=== PATIENT | female | born 1930 | race Caucasian/White ===

== ENCOUNTER → 2016-11-06 | Outpatient (CLI) | payer MEDICARE, BC ==
[~2016-11-06] MED LIST: DIGO125T PO; LEVO50TA71 PO; LOVA40TA64 PO; METO25TA7 PO; NIFE30TA60 PO
--- NOTE | 2016-11-06 19:41 | RADRPT ---
PROCEDURE: CT Chest, Abdomen and Pelvis with contrast. CLINICAL INDICATION: Right lung effusion and weight loss with dyspnea. TECHNIQUE: CT scan of the chest, abdomen, and pelvis with contrast was performed on a multi-detect or high-resolution CT scanner. The patient was scanned without intravenous contrast. Coronal and s agittal reformatted images were obtained from the axial source images. Images were reviewed on a hig h-resolution PACS workstation. The total exam CTDI equals 4.32 mGy and the total exam DLP equals 315 .43 mGy-cm. One of the following 3 dose reduction techniques were used during this CT examination: automated exp osure control; adjustment of the mA and /or kV according to patient size; or use of iterative recons truciton technique COMPARISON: Chest x-ray 03/26/20602015 and CT chest abdomen pelvis on 03/26/2016 FINDINGS: CT chest: The lungs are remarkable for hyperinflation compatible with emphysematous changes. Moderate right g reater than left pleural effusions are present with bibasilar atelectasis or infiltrates. These are increased when compared with prior study. No other areas of infiltrate, nodules or masses are prese nt. The tracheobronchial tree demonstrates cartilaginous ring calcification. The mediastinum is demonstrates vascular calcifications of the thoracic aorta and the coronary arter ies. No evidence for pathologic lymphadenopathy is present. Mild cardiomegaly is present with 9 mm pericardial effusion. The vascular structures of the mediastinum are normal in course and caliber. The axillary regions, subpectoral regions, and supraclavicular regions are all unremarkable. The surrounding chest wall is unremarkable. CT abdomen: The liver is normal in size and density without focal mass or intrahepatic biliary dilatation. The spleen is normal in size and homogeneous in density. The stomach is partially collapsed, but is jonah ssly unremarkable. The pancreas as visualized is normal. The gallbladder and biliary tree are unre markable and there is no evidence for biliary dilatation. The adrenal glands are symmetric and norm al. The kidneys are are normal without evidence for hydroureteronephrosis or nephroureterolithiasis . A low-lying right kidney is incidentally noted. The visualized bowel is nonobstructive. No evidence for diverticulitis or appendicitis is present. The aorta is of normal caliber. Aortic vascular calcifications are present. There is no retroperit ahumada lymphadenopathy. The dorian hepatis region is clear. CT pelvis: The small bowel loops situated within the pelvis are unremarkable. The pelvic organs are normal. T he pelvic sidewalls and inguinal regions are clear. The sigmoid colon and rectum are all unremarkab le. No mass, lymphadenopathy, or free fluid is seen. No acute inflammation is seen. The surrounding osseous structures are remarkable for degenerative changes the bilateral sacroiliac joints and the imaged spine. A grade 1 spondylolisthesis of L4 on L5 is present without evidence fo r spondylolysis. Transitional anatomy is present. No osteolytic or osteoblastic lesion is detected. IMPRESSION: 1. Interval increased bilateral right greater than left moderate pleural effusions and bibasilar in filtrates or atelectasis. 2. Mild cardiomegaly and pericardial effusion measuring 9 mm in thickness unchanged from prior CT. 3. Atherosclerotic vascular disease 4. Spondylosis of the imaged spine with grade 1 spondylolisthesis of L4 and L5 and no evidence for spondylolysis. RPTAT: HD .Galina Mckeon MD, MD Date Time Electronically viewed and signed by .Galina Mckeon MD, on 11/06/2016 19:41 .C/
== END | disposition home or self-care (01) ==
LOC: C/S 13:02
PROVIDERS: ATTEND Internal Medicine
DX: J90 Pleural effusion, not elsewhere classified (principal); R63.4 Abnormal weight loss; R13.10 Dysphagia, unspecified; I70.90 Unspecified atherosclerosis
CPT/HCPCS: 71250; 74176

== ENCOUNTER 2016-11-12 13:19 | Inpatient (IN) | payer MEDICARE, BC ==
[~2016-11-12] VITALS: Ht 162.6 cm; Wt 45.0 kg
[2016-11-12 16:59] LABS: BASOPHILS % 0.2 % (0.0-2.0); EOSINOPHILS # 0.1 10^3/ul (0.0-0.5); EOSINOPHILS % 0.9 % (0.0-7.0); HEMATOCRIT 47.3 % (37.0-47.0); HEMOGLOBIN 15.6 g/dl (12.0-16.0); LYMPHOCYTES # 0.7 10^3/ul (0.8-2.9); LYMPHOCYTES % 9.1 % (15.0-51.0); MEAN CORPUSCULAR HEMOGLOBIN 31.1 pg (29.0-33.0); MEAN CORPUSCULAR HGB CONC 32.9 g/dl (32.0-37.0); MEAN CORPUSCULAR VOLUME 94.5 fl (82.0-101.0); MEAN PLATELET VOLUME 9.4 fl (7.4-10.4); MONOCYTE # 0.7 10^3/ul (0.3-0.9); MONOCYTES % 8.4 % (0.0-11.0); NEUTROPHIL # 6.3 10^3/ul (1.6-7.5); NEUTROPHILS % 81.4 % (39.0-77.0); PLATELET COUNT 212 10^3/UL (140-440); RED BLOOD COUNT 5.01 10^6/ul (4.20-5.40); UNCORRECTED WBC 7.8 10^3/ul (4.8-10.8); WHITE BLOOD COUNT 7.8 10^3/ul (4.8-10.8)
[2016-11-12] MEDS ORDERED: ENALAPRILAT 1.25 MG INJ IV ONE (17:00)
[2016-11-12] MEDS ORDERED: FUROSEMIDE 40 MG INJ IV ONE (17:00)
[2016-11-12] MEDS ORDERED: FAMO20TA18 PO (17:05)
[2016-11-12] MEDS ORDERED: WARF3TAB PO (17:05)
[2016-11-12 17:10] LABS: CONDITION 1
[2016-11-12 17:23] LABS: ALBUMIN 4.1 g/dl (3.3-4.9)
[2016-11-12 17:24] LABS: POTASSIUM 5.1 mmol/L (3.5-5.1)
[2016-11-12 17:26] LABS: BILIRUBIN,INDIRECT 0.6 mg/dl (0-1.1); BILIRUBIN,TOTAL 0.6 mg/dl (0.2-1.3); CREATININE 0.75 mg/dl (0.44-1.00)
[2016-11-12 17:27] LABS: CALCIUM 9.2 mg/dl (8.4-10.2); TOTAL PROTEIN 8.2 g/dl (6.1-8.1)
--- NOTE | 2016-11-12 17:28 | RADRPT ---
PROCEDURE: XR Chest. CLINICAL INDICATION: Abdominal pain TECHNIQUE: AP view of the chest was obtained. COMPARISON: 03/30/2016 FINDINGS: There are atherosclerotic calcifications of the thoracic aorta. Cardiac silhouette is mildly enlar ged. There are small bilateral pleural effusions with adjacent basilar atelectasis. Noted are clip s in the axilla/right chest wall. IMPRESSION: Small bilateral pleural effusions with bibasilar atelectasis. Mild cardiomegaly. RPTAT: VV .Pratik Kam MD, MD Date Time Electronically viewed and signed by .Pratik Kam MD, on 11/12/2016 17:27 .O/
[2016-11-12 17:30] LABS: INR 5.11; PROTIME 48.2 Sec (12.2-14.2); PT RATIO 3.8
[2016-11-12 17:37] LABS: TROPONIN-I 0.069 ng/ml (0.00-0.12)
--- NOTE | 2016-11-12 18:23 | ERA ---
ER Documentation Chief Complaint Date/Time DATE: 11/12/16 TIME: 18:22 Chief Complaint SOB SINCE SATURDAY. FLUID ACCULMULATION IN LUNGS, SENT BY PMD FOR ADMIT HPI 86-year-old woman complains of increasing shortness of breath despite using furosemide daily, which was recently prescribed by her primary care physician. She has a history of pleural effusions and breast cancer and a CT scan of the chest performed a few days ago revealed bilateral pleural effusions. Patient states with furosemide therapy of her lower extremity swelling improved although shortness of breath continues. She denies fevers or chills, no chest pain, no vomiting or diarrhea. Patient was referred here by her PMD for admission and inpatient management. ROS All systems reviewed and are negative except as per history of present illness. Medications Home Meds Reported Medications Famotidine* (Famotidine*) 20 Mg Tablet, 20 MG PO BID, #60 TAB 11/12/16 Warfarin Sodium* (Coumadin*) 3 Mg Tablet, 3 MG PO DAILY, TAB 11/12/16 Lovastatin* (Altoprev*) 40 Mg Tab.sr.24h, 40 MG PO HS, TAB 03/26/16 Metoprolol Succinate* (Toprol XL*) 25 Mg Tab.sr.24h, 25 MG PO DAILY, #30 TAB 03/26/16 Levothyroxine Sodium* (Levoxyl*) 50 Mcg Tablet, 50 MCG PO BEFORE BREAKFAST, #30 TAB 03/26/16 Digoxin* (Digoxin*) 0.125 Mg Tab, 0.125 MG PO DAILY, #30 TAB 03/26/16 Discontinued Reported Medications Nifedipine* (Nifedipine ER*) 30 Mg Tablet.sa, 30 MG PO DAILY, TAB.SA 03/26/16 Allergies Allergies: Coded Allergies: No Known Allergy (Unverified , 11/12/16) PMhx/Soc 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, atrial fibrillation, recurrent hyponatremia, hypothyroidism, breast cancer status post mastectomy, hypertension History of Surgery: Yes (Mastectomy (L) 1999; (R) 2014) Anesthesia Reaction: No Hx Neurological Disorder: No Hx Respiratory Disorders: No Hx Cardiac Disorders: Yes (HTN, A-fib.) Hx Psychiatric Problems: No Hx Alcohol Use: No Hx Substance Use: No Hx Tobacco Use: No Smoking Status: Never smoker FmHx Family History: No diabetes Physical Exam Vitals Vital Signs Date Time Temp Pulse Resp B/P Pulse Ox O2 Delivery O2 Flow Rate FiO2 11/12/16 16:44 Nasal Cannula 3 11/12/16 13:29 98.4 76 24 183/81 96 Physical Exam GENERAL: Well-developed, well-nourished, appears dehydrated, afebrile HEENT: Moist mucous membranes, pink conjunctiva, no cervical spine tenderness or step-off deformities, no goiter, no jaundice or icterus, extraocular movements intact without pain. No submandibular induration, and no pharyngeal erythema NEURO: Alert and oriented 3, cranial nerves II through XII intact bilaterally, pupils equal round reactive to light, no focal deficits or facial asymmetry, sensation intact distally Strength 5/5 in upper and lower extremities bilaterally CARDIAC: Irregular, no murmurs rubs or gallops LUNGS: Poor entry bilaterally with bibasilar crackles, no wheezing or stridor ABDOMEN: Soft nontender, no guarding, no rigidity, no rebound, no psoas sign no obturator sign. Normoactive bowel sounds SKIN: Warm and dry to touch, no abrasions, contusions, or hematomas, no lacerations, no ecchymosis, no target lesions, and without ulcers EXTREMITIES: No clubbing cyanosis or edema, calves are bilaterally symmetrical, no Homans sign, no popliteal cord sign. Distal pulses equal and bilateral PSYCH: Normal affect without agitation or irritability Result Diagram: 11/12/16 1640 11/12/16 1640 Results 24 hrs Laboratory Tests Test 11/12/16 16:40 Alanine Aminotransferase (ALT/SGPT) 28IU/L Albumin 4.1g/dl Albumin/Globulin Ratio 1.00 Alkaline Phosphatase 85IU/L Anion Gap 13 Aspartate Amino Transf (AST/SGOT) 34IU/L Basophils # 0.010^3/ul Basophils % 0.2% Blood Urea Nitrogen 16mg/dl Calcium Level 9.2mg/dl Carbon Dioxide Level 34mmol/L Chloride Level 96mmol/L Creatinine 0.75mg/dl Direct Bilirubin 0.00mg/dl Eosinophils # 0.110^3/ul Eosinophils % 0.9% Globulin 4.10g/dl Glucose Level 84mg/dl Hematocrit 47.3% Hemoglobin 15.6g/dl INR International Normalized Ratio 5.11 Indirect Bilirubin 0.6mg/dl Lipase 72U/L Lymphocytes # 0.710^3/ul Lymphocytes % 9.1% Mean Corpuscular Hemoglobin 31.1pg Mean Corpuscular Hemoglobin Concent 32.9g/dl Mean Corpuscular Volume 94.5fl Mean Platelet Volume 9.4fl Monocytes # 0.710^3/ul Monocytes % 8.4% Neutrophils # 6.310^3/ul Neutrophils % 81.4% Nucleated Red Blood Cells # 0.010^3/ul Nucleated Red Blood Cells % 0.0/100WBC Platelet Count 33404^3/UL Potassium Level 5.1mmol/L Prothrombin Time 48.2Sec Prothrombin Time Ratio 3.8 Red Blood Count 5.0110^6/ul Red Cell Distribution Width 14.0% Sodium Level 138mmol/L Total Bilirubin 0.6mg/dl Total Protein 8.2g/dl Troponin I 0.069ng/ml White Blood Count 7.810^3/ul Current Medications Medications (Trade) Dose Ordered Sig/Murphy Route PRN Reason Start Time Stop Time Status Last Admin Dose Admin Enalaprilat (Vasotec Iv) 1.25 mg ONCE ONCE IV 11/12/16 17:00 11/12/16 17:01 DC 11/12/16 17:05 Furosemide (Lasix) 60 mg ONCE ONCE IV 11/12/16 17:00 11/12/16 17:01 DC 11/12/16 17:05 Procedures/MDM IV line was established patient was placed on front desk monitor rhythm strip revealed a narrow complex rhythm at about 80 bpm. Patient was afebrile. EKG performed, read by me revealed an atrial fibrillation rate controlled at 76 bpm, right axis deviation, narrow QRS complex with diffuse T-wave inversions, no concerning ST elevations or depressions noted. One view chest x-ray performed, read by me there is atelectatic changes bilaterally and bilateral small pleural effusions, no acute infiltrate, no pneumothorax. Given the patient's presentation and symptomatology I treated her here with furosemide 60 mg IV 1. She was hypertensive and treated here with enalapril 1.25 mg IV. CBC and electrolytes are normal, liver function tests are normal, troponin was negative. I spoke to Dr. Bustos regarding the patient's presentation and symptomatology she will be admitted to telemetry setting for continued medical management and further diuresis. Patient failed outpatient therapy with oral furosemide and has continued symptoms of shortness of breath, further workup and imaging if indicated will be deferred to PMD. Departure Diagnosis: Primary Impression: Shortness of breath Additional Impressions: Pleural effusion Hypertension Qualified Code: I10 - Essential hypertension Breast cancer Qualified Code: C50.912 - Malignant neoplasm of left female breast, unspecified site of breast Condition: DAVID Samuel MD Nov 12, 2016 18:23
[2016-11-12] MEDS ORDERED: ACETAMINOPHEN 325 MG TAB PO PRN (20:30)
[2016-11-12] MEDS ORDERED: ONDANSETRON 4 MG INJ IV PRN (20:30)
[2016-11-12] MEDS ORDERED: NACL 0.9% 3 ML SYG IV SCH (20:30)
--- NOTE | 2016-11-12 20:47 | PREOPHP ---
DATE OF ADMISSION: 11/12/2016 REASON FOR ADMISSION: Increasing shortness of breath. HISTORY OF PRESENT ILLNESS: This 86-year-old female says that she has been having increasing shortn ess of breath. The patient has also had leg swelling. The patient was started on Lasix by her [facility] doctor on approximately 10/30/2016. She said that swelling in her legs, decreased; however , her shortness of breath, did not improve. Then, about the same period of time on approximately , she developed some mid waist abdominal pain with nausea and vomiting. She said that after several days she felt better; however, she was not eating. She did see her primary care physician, Dr. Gayle, on 11/02/2016 and gave him some of this history. Then, the patient developed increasin g shortness of breath. She did have a CAT scan of the chest on 11/06/2016, which showed increased b ilateral pleural effusions, right greater than left, and bibasilar infiltrates and/or atelectasis. It also showed mild cardiomegaly and pericardial effusion. The patient has a past medical history o f atrial fibrillation and breast cancer. It is not clear to me whether this breast cancer has been metastatic, although she has been seeing Dr. Burrell for the breast cancer. CURRENT MEDICATIONS: Include the followin. Digoxin 0.125 mg a day. 2. Metoprolol succinate extended release 25 mg a day. 3. Synthroid 50 mcg a day. 4. Lovastatin 40 mg a day. 5. Famotidine 20 mg twice a day. 6. Coumadin 3 mg a day. 7. She was apparently recently taken off of Adalat CC 30 mg a day because of her leg edema. 8. She was taking furosemide, which she did stop last week. ALLERGIES: SHE IS ALLERGIC TO CODEINE. 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 PAST SURGICAL HISTORY: Breast cancer surgery, both left and right; bilateral cataract extraction, b uche cell, squamous cell, and melanoma skin surgeries. PHYSICAL EXAMINATION: GENERAL: At this time reveals a cachectic female who is awake and alert and seems oriented to time and place and person. VITAL SIGNS: Blood pressure 150/93, pulse of 77, irregular, respirations 20, O2 saturation 100% on room air. HEENT: Head normocephalic. EYES: Extraocular muscles intact. NOSE AND MOUTH: Normal. NECK: Supple. No neck vein distention. LUNGS: Diminished breath sounds bilaterally. No rales or wheezes. HEART: Irregularly irregular rhythm. No murmurs, gallops, or rubs. ABDOMEN: Soft, nontender. No masses or megaly. EXTREMITIES: Trace to +1 pretibial edema, which is nonpitting. LABORATORY DATA: Hemoglobin is 15.6, hematocrit 47.3. White blood count 7800. Her INR is elevated at 5.1. Her chemistry: Sodium 138, potassium 5.1, chloride 96, CO2 of 34, BUN 16, creatinine 0.75 . IMPRESSION: 1. Dyspnea. This patient presents now with increasing dyspnea. She does have bilateral pleural ef fusions on a recent CAT scan. She also had some lower extremity edema, which has improved on Lasix. She also had a pericardial effusion on the CAT scan. The etiology of her pleural effusions is eit her congestive heart failure and/or malignancy. She does have a history of breast cancer. 2. Breast cancer, both left and right, having gone bilateral mastectomy. 3. Atrial fibrillation, controlled rate. 4. Weight loss. 5. Debility. 6. Prolonged protime due to Coumadin. 7. Hypothyroidism. 8. Hyperlipidemia. 9. Hypertension. PLAN: 1. Admit to telemetry. 2. The patient was given Lasix in the emergency room. 3. Resume some routine medications. 4. Echocardiogram to assess pericardial effusion. 5. Check labs in the morning. 6. Further evaluation and workup by Dr. Gayle when he returns tomorrow. Dictated By: TREVIN WARD MD, ND/REI Conf#: [id number] DID#: [id number]
[2016-11-12] MEDS ORDERED: NON-FORMULARY/PATIENT OWN MED (Lovastatin* (Altoprev*) 40 MG) PO SCH (21:00)
[2016-11-12] MEDS ORDERED: FAMOTIDINE 20 MG TAB PO SCH (21:00)
[2016-11-12 21:14] LABS: ADD UMIC YES; URINE BILIRUBIN (Dip) NEGATIVE (NEGATIVE); URINE BLOOD (Dip) 1+ (NEGATIVE); URINE COLOR LT. YELLOW (YELLOW); URINE GLUCOSE (Dip) NEGATIVE (NEGATIVE); URINE KETONES (Dip) NEGATIVE (NEGATIVE); URINE LEUKOCYTE ESTERASE (Dip) NEGATIVE (NEGATIVE); URINE NITRITE (Dip) NEGATIVE (NEGATIVE); URINE TOTAL PROTEIN (Dip) NEGATIVE (NEGATIVE); URINE UROBILINOGEN (Dip) 0.2 E.U./dL (0.1-1.0)
[2016-11-12 21:46] LABS: SQUAMOUS EPITHELIAL CELL,UR RARE
[2016-11-12] MEDS: ATORVASTATIN 10 MG TAB PO SCH (21:57)
[2016-11-12] MEDS: FAMOTIDINE 20 MG TAB PO SCH (21:57)
[2016-11-13] VITALS (12 sets, daily range): BP systolic 92–141; BP diastolic 54–84; PULSE 51–88; RESP 18–20; Ht 162.6 cm; Wt 45.0 kg
[2016-11-13] MEDS: LEVOTHYROXINE 50 MCG TAB PO SCH (06:33)
--- NOTE | 2016-11-13 08:25 | PN ---
Date/Time of Note Date/Time of Note DATE: 11/13/16 TIME: 08:23 Assessment/Plan VTE Prophylaxis VTE Prophylaxis Intervention: other Lines/Catheters Urinary Cath still in place: No Assessment/Plan Assessment/Plan 1. Recurrent edema in part sec to cardiac dysfx (diastolic ?), await cards follow up, Lasix given today 2. Effusion prob sec to 1, but when quite dry last week effusions were still present on CT scan, need pleural tap, pul to see. 3. Bilat breast Ca, will ask oncology to see as well. Subjective 24 Hr Interval Summary Respiratory: shortness of breath (is less) Cardiovascular: No chest pain Gastrointestinal: no complaints Genitourinary: other (mod incontinence) Musculoskeletal: No back pain Exam/Review of Systems Vital Signs Vitals Vital Signs Date Time Temp Pulse Resp B/P Pulse Ox O2 Delivery O2 Flow Rate FiO2 11/13/16 08:11 54 11/13/16 07:33 97.4 20 116/54 98 11/13/16 01:00 Nasal Cannula 2.0 Intake and Output 11/12/16 11/12/16 11/13/16 15:00 23:00 07:00 Intake Total 100 ml Balance 100 ml Exam Neck: No jvd Respiratory: diminished breath sounds Cardiovascular: irregular rhythm Gastrointestinal: soft Extremities: edema (1+ edema and sacral edema) Results Result Diagram: 11/12/16 1640 11/12/16 1640 Results 24 hrs Laboratory Tests Test 11/12/16 16:40 11/12/16 20:46 Alanine Aminotransferase (ALT/SGPT) 28 Albumin 4.1 Albumin/Globulin Ratio 1.00 Alkaline Phosphatase 85 Anion Gap 13 Aspartate Amino Transf (AST/SGOT) 34 Basophils # 0.0 Basophils % 0.2 Blood Urea Nitrogen 16 Calcium Level 9.2 Carbon Dioxide Level 34 H Chloride Level 96 L Creatinine 0.75 Digoxin Level 1.3 Direct Bilirubin 0.00 Eosinophils # 0.1 Eosinophils % 0.9 Globulin 4.10 H Glucose Level 84 Hematocrit 47.3 #H Hemoglobin 15.6 # INR International Normalized Ratio 5.11 Indirect Bilirubin 0.6 Lipase 72 Lymphocytes # 0.7 L Lymphocytes % 9.1 L Mean Corpuscular Hemoglobin 31.1 Mean Corpuscular Hemoglobin Concent 32.9 Mean Corpuscular Volume 94.5 Mean Platelet Volume 9.4 Monocytes # 0.7 Monocytes % 8.4 Neutrophils # 6.3 Neutrophils % 81.4 H Nucleated Red Blood Cells # 0.0 Nucleated Red Blood Cells % 0.0 Platelet Count 212 Potassium Level 5.1 Prothrombin Time 48.2 H Prothrombin Time Ratio 3.8 Red Blood Count 5.01 # Red Cell Distribution Width 14.0 Sodium Level 138 Thyroid Stimulating Hormone (TSH) 0.856 Total Bilirubin 0.6 Total Protein 8.2 H Troponin I 0.069 White Blood Count 7.8 # Urine Bilirubin NEGATIVE Urine Clarity CLEAR Urine Color LT. YELLOW Urine Glucose NEGATIVE Urine Hemoglobin 1+ H Urine Ketones NEGATIVE Urine Leukocyte Esterase NEGATIVE Urine Microscopic RBC 2-5 Urine Microscopic WBC NONE SEEN Urine Nitrite NEGATIVE Urine Specific [place] <=1.005 L Urine Squamous Epithelial Cells RARE Urine Total Protein NEGATIVE Urine Urobilinogen 0.2 E.U./dL Urine pH 6.0 Medications Medications Current Medications Digoxin (Digoxin) 0.125 mg DAILY@13 PO ; Start 11/13/16 at 13:00 Metoprolol Succinate (Toprol Xl) 25 mg DAILY PO ; Start 11/13/16 at 09:00 Clonidine (Catapres) 0.1 mg Q6 PRN PO ELEVATED BLOOD PRESSURE; Start 11/12/16 at 20:30 Ondansetron HCl (Zofran Inj) 4 mg Q6H PRN IV NAUSEA AND/OR VOMITING; Start at 20:30 Acetaminophen (Tylenol Tab) 650 mg Q6H PRN PO PAIN LEVEL 1-3 OR FEVER; Start at 20:30 Famotidine (Pepcid) 20 mg DAILY PO Last administered on 11/12/16 21:57; Admin Dose 20 MG; Start 11/12/16 at 21:00 Atorvastatin Calcium (Lipitor) 10 mg DAILY@21 PO Last administered on 21:57; Admin Dose 10 MG; Start 11/12/16 at 21:00 CATARINO RAMOS MD Nov 13, 2016 08:25
[2016-11-13] MEDS ORDERED: FUROSEMIDE 40 MG INJ IV ONE (08:30)
[2016-11-13] MEDS: FAMOTIDINE 20 MG TAB PO SCH (09:25)
[2016-11-13] MEDS: METOPROLOL (XL) 25 MG TAB PO SCH (09:27)
--- NOTE | 2016-11-13 12:13 | CONS ---
DATE OF ADMISSION: 11/12/2016 DATE OF CONSULTATION: REASON FOR CONSULTATION: Shortness of breath. Thank you, Dr. Gayle, for this consultation. HISTORY OF PRESENT ILLNESS: This is an 86-year-old lady who presents with a several-day history of increasing shortness of breath, lower extremity edema, failed outpatient diuretics by her primary ca re physician. Upon admission, she also had several days of nausea and vomiting, but no evidence of aspiration. A CT of the chest was performed on admission and showed bilateral pleural effusions wit h mild bibasilar atelectasis and small pericardial effusion. PAST MEDICAL HISTORY: Atrial fibrillation, history of breast cancer. MEDICATIONS: Include: 1. Coumadin. 2. Digoxin. 3. Metoprolol. 4. Lovastatin. 5. Famotidine. ALLERGIES: NONE. SOCIAL HISTORY: Nonsmoker, no alcohol, no history of drug use. FAMILY HISTORY: Noncontributory. SYSTEMS REVIEW: A 12-point review of systems was negative other than that mentioned above. PHYSICAL EXAMINATION: GENERAL: Thin lady, awake, alert, oriented, comfortable at rest, talking in full and comp lete sentences. VITAL SIGNS: Currently afebrile. Pulse is 65, blood pressure 118/55, O2 saturation 96% on 2 L nasa l cannula. NECK: Supple, no JVD or lymphadenopathy. CARDIAC: S1, S2, no added sounds or murmurs. CHEST: Diminished air entry bilaterally. ABDOMEN: Soft, nontender. No guarding or rebound. EXTREMITIES: No cyanosis, clubbing or edema. NEUROLOGIC: Generalized weakness, but no focal deficits. LABORATORIES: White count 7.8, hemoglobin 15.6, BUN 16, creatinine 0.75. INR 3.8. Digoxin level 1 .3. Urinalysis unremarkable. Chest x-ray showed small bilateral pleural effusions. IMPRESSION AND PLAN: 1. Dyspnea, likely secondary to congestive cardiac failure. 2. History of breast cancer. 3. Possible recent gastroenteritis. The patient will require: 1. Gentle diuresis. 2. Echocardiogram. 3. Aspiration precautions. 4. DVT and GI prophylaxis. It is unlikely that these have metastatic pleural effusions. They should improve with diuretics. I f they do not, more aggressive workup may be necessary. Dictated By: TALIA IZAGUIRRE/REI Conf#: [id number] DID#: [id number]
[2016-11-13 12:23] LABS: BASOPHILS % 0.5 % (0.0-2.0); EOSINOPHILS % 0.5 % (0.0-7.0); HEMATOCRIT 42.4 % (37.0-47.0); HEMOGLOBIN 14.1 g/dl (12.0-16.0); LYMPHOCYTES # 0.4 10^3/ul (0.8-2.9); LYMPHOCYTES % 6.3 % (15.0-51.0); MEAN CORPUSCULAR HEMOGLOBIN 31.4 pg (29.0-33.0); MEAN CORPUSCULAR HGB CONC 33.3 g/dl (32.0-37.0); MEAN CORPUSCULAR VOLUME 94.3 fl (82.0-101.0); MEAN PLATELET VOLUME 10.1 fl (7.4-10.4); MONOCYTE # 0.8 10^3/ul (0.3-0.9); MONOCYTES % 11.7 % (0.0-11.0); NEUTROPHIL # 5.4 10^3/ul (1.6-7.5); PLATELET COUNT 195 10^3/UL (140-440); UNCORRECTED WBC 6.7 10^3/ul (4.8-10.8); WHITE BLOOD COUNT 6.7 10^3/ul (4.8-10.8)
[2016-11-13 12:38] LABS: INR 5.6; PROTIME 51.8 Sec (12.2-14.2)
[2016-11-13 12:54] LABS: CONDITION 1
[2016-11-13] MEDS ORDERED: DIGOXIN 0.125 MG TAB PO SCH (13:00)
[2016-11-13 13:25] LABS: ALBUMIN 3.1 g/dl (3.3-4.9); POTASSIUM 3.9 mmol/L (3.5-5.1)
[2016-11-13 13:27] LABS: CREATININE 0.9 mg/dl (0.44-1.00)
[2016-11-13 13:28] LABS: ALBUMIN/GLOBULIN RATIO 0.93; BILIRUBIN,INDIRECT 0.5 mg/dl (0-1.1); BILIRUBIN,TOTAL 0.5 mg/dl (0.2-1.3); CALCIUM 8.7 mg/dl (8.4-10.2); TOTAL PROTEIN 6.4 g/dl (6.1-8.1)
[2016-11-13] MEDS ORDERED: PHYTONADIONE 5 MG TAB PO ONE (14:00)
[2016-11-13 15:01] LABS: POTASSIUM 3.6 mmol/L (3.5-5.1)
[2016-11-13 15:03] LABS: CREATININE 0.89 mg/dl (0.44-1.00)
[2016-11-13 15:04] LABS: CALCIUM 8.7 mg/dl (8.4-10.2)
[2016-11-13] MEDS ORDERED: POTASSIUM CHLORIDE (SR) 20 MEQ TAB PO STA (15:20)
[2016-11-13] MEDS: ATORVASTATIN 10 MG TAB PO SCH (21:31)
--- NOTE | 2016-11-13 21:59 | RADRPT ---
Echocardiogram Report Patient Name: HARITHA HUNT Gender: Female Date: 1930 Study Date: 13-Nov-2016 Production Line Technician: Trent Curtis [facility] Location: [id number] Ref. Physician: TREVIN WARD Quality: Technically Difficult Study Procedures: Transthoracic echocardiogram with complete 2D, M-Mode, and doppler examination. Indications: Evaluate Left Ventricular function. 2D/M Mode Doppler Measurement Value Normal Ranges Measurement Value Normal Ranges LVIDd 2D 3.7 3.5 - 5.6 cm AV Peak Omar 1.4 m/sec LVIDs 2D 2.9 2.1 - 4.1 cm AV Peak PG 7.6 mmHg LVPWd 2D 0.9 0.6 - 1.1 cm LVOT Peak Omar 1.0 m/sec IVSd 2D 0.8 0.6 - 1.1 cm LVOT Peak PG 3.6 mmHg AoR Diam 2D 2.0 2.0 - 3.7 cm TR Peak Omar 2.7 m/sec EDV 2D 59.3 cm3 TR Peak PG 29.5 mmHg ESV 2D 24.8 cm3 RVSP 33.0 mmHg LA Dimen 2D 3.5 2.3 - 4.0 cm Findings Left Ventricle: Normal left ventricular systolic function. Normal left ventricular cavity size. Normal left ventricular wall thickness. Ejection fraction is visually estimated at 65 %. Tissue Doppler/Mitral Doppler indices are indeterminate in this study due to the presence of afib rhythm. Right Ventricle: Normal right ventricular size. Normal right ventricular systolic function. Left Atrium: The left atrium is normal in size. Right Atrium: The right atrium is normal in size. Mitral Valve: Normal appearance of the mitral valve. Mild mitral valve regurgitation. Aortic Valve: Normal appearance of the aortic valve. No significant aortic stenosis or insufficiency. Tricuspid Valve: Normal appearance of the tricuspid valve. Right ventricular systolic pressure is consistent with mild pulmonary hypertension. Estimated peak PA systolic pressure 33 mmHg. There is mild tricuspid regurgitation. Pulmonic Valve: Normal pulmonic valve appearance. No evidence of pulmonic regurgitation. Pericardium: Small pericardial effusion, anterior seen in subcostal view. No echocardiographic evidence to suggest pericardial tamponade. Bilateral pleural effusion seen. Aorta: Normal aortic root. IVC: Normal size and normal respiratory collapse consistent with normal right atrial pressure. Conclusions Normal left ventricular systolic function. Normal left ventricular cavity size. Normal left ventricular wall thickness. Ejection fraction is visually estimated at 65 %. Tissue Doppler/Mitral Doppler indices are indeterminate in this study due to the presence of afib rhythm. Normal right ventricular size. Normal right ventricular systolic function. Normal appearance of the tricuspid valve. Right ventricular systolic pressure is consistent with mild pulmonary hypertension. Estimated peak PA systolic pressure 33 mmHg. There is mild tricuspid regurgitation. Small pericardial effusion, anterior seen in subcostal view. No echocardiographic evidence to suggest pericardial tamponade. Bilateral pleural effusion seen. Normal size and normal respiratory collapse consistent with normal right atrial pressure. No Vegetation, masses, or thrombi seen. Electronically Signed By: Leandro Woody 13-Nov-2016 21:58:25 -0800 Patient Name: HARITHA HUNT Study Date: 13-Nov-2016 [id number]
--- NOTE | 2016-11-13 23:58 | CONS ---
Date/Time of Note Date/Time of Note DATE: 11/13/16 TIME: 23:50 Assessment/Plan Assessment/Plan Chief Complaint/Hosp Course # Fluid overload- bilateral pleural effusion + ble edema. has normal lvef on echo, small effusion. patient failed outpatient diuresis/mgmt. picture is consistent with acute on chronic diastolic heart failure. however given previous breast CA hx would recommend thoracentesis (therapeutic/diagnostic). - cont gentle diuresis, goal net neg 1L Day - strict i/o - follow K/Mag and supplement as needed - hold anticoag, consider diagnostic/therapeutic thoracentesis # pericardial effusion- small anterior on subcostal view on echo, no apparent in other views. no e/o hemodynamic significance. - f/u echo periodically as outpt - thoracentesis for fluid cytology as above # afib- chronic, rate controlled - cont bb, digoxin - holding coumading given inr supratherapeutic/possible need for procedure # HTN - cont home meds - additional agent as needed # breast CA hx - ? related to persistent pleural effusion Problems: Consultation Date/Type/Reason Admit Date/Time Nov 12, 2016 at 17:26 Date of Consultation: Nov 13, 2016 Type of Consultation: Cardiology Reason for Consultation Afib, Acute diastolic heart failure Referring Provider: CATARINO RAMOS MD Hx of Present Illness Ms. Lowe is a 86 y.o. woman with h/o of chronic afib on anticoag and breast CA. pt with progressive mckeon and LE edema over last month, had been seen in clinic and thought to have diastolic heart failure. started on diuretics. She reports swelling in her legs, decreased; however, her shortness of breath, did not improve. She did have a CAT scan of the chest on 11/06/2016, which showed increased bilateral pleural effusions, right greater than left, and bibasilar infiltrates and/or atelectasis. It also showed mild cardiomegaly and pericardial effusion. Denied any cp, palpitations, dizziness, fainting. did have n/v, abd pain during course as well. Pt now admitted due to cont progressive dyspnea. Constitutional: no complaints ENT: no complaints Respiratory: shortness of breath (is less) Cardiovascular: no complaints, No chest pain Gastrointestinal: nausea, vomiting Genitourinary: other (mod incontinence) Musculoskeletal: No back pain Skin: bruising Neurologic: no complaints Psychological: nl mood/affect, no complaints Past Medical History hypertension, atrial fibrillation on Coumadin, hyperlipidemia, hypothyroidism, left breast cancer status post mastectomy and chemo and then right radical mastectomy in May of 2015 with radiation therapy and given anastrozole, basal cell skin cancer from nose, squamous cell skin cancer, hearing loss, weight loss, acute renal failure Past Surgical History Breast cancer surgery, both left and right; bilateral cataract extraction, basal cell, squamous cell, and melanoma skin surgeries. Family History Significant Family History: other (denies cad) Social History Alcohol Use: none Smoking Status: Never smoker Drug Use: none Exam/Review of Systems Vital Signs Vitals Vital Signs Date Time Temp Pulse Resp B/P Pulse Ox O2 Delivery O2 Flow Rate FiO2 11/13/16 20:21 88 11/13/16 20:18 98.0 18 104/59 94 11/13/16 11:14 Nasal Cannula 2.0 Intake and Output 11/12/16 11/12/16 11/13/16 15:00 23:00 07:00 Intake Total 100 ml Balance 100 ml Exam Constitutional: alert, oriented Psych: no complaints Head: normocephalic Eyes: EOMI, nl conjunctiva, nl lids ENMT: nl external ears & nose, nl nasal mucosa & septum Respiratory: other (decrease bs bilatearl base) Cardiovascular: irregular rhythm, nl pulses, systolic murmur Gastrointestinal: non-tender, soft Musculoskeletal: swelling (mikdl ble edema ) Extremities: normal pulses Neurological: MERCHANDISE DIRECTOR II-XII intact, nl mental status, nl speech Results Result Diagram: 11/13/16 1115 11/13/16 1400 Results 24 hrs Laboratory Tests Test 11/13/16 11:15 11/13/16 11:30 11/13/16 14:00 Basophils # 0.0 Basophils % 0.5 Eosinophils # 0.0 Eosinophils % 0.5 Hematocrit 42.4 Hemoglobin 14.1 Lymphocytes # 0.4 L Lymphocytes % 6.3 L Mean Corpuscular Hemoglobin 31.4 Mean Corpuscular Hemoglobin Concent 33.3 Mean Corpuscular Volume 94.3 Mean Platelet Volume 10.1 Monocytes # 0.8 Monocytes % 11.7 H Neutrophils # 5.4 Neutrophils % 81.0 H Nucleated Red Blood Cells # 0.0 Nucleated Red Blood Cells % 0.0 Platelet Count 195 Red Blood Count 4.50 Red Cell Distribution Width 14.0 White Blood Count 6.7 Alanine Aminotransferase (ALT/SGPT) 26 Albumin 3.1 #L Albumin/Globulin Ratio 0.93 Alkaline Phosphatase 60 Anion Gap 12 13 Aspartate Amino Transf (AST/SGOT) 29 Blood Urea Nitrogen 20 19 Calcium Level 8.7 8.7 Carbon Dioxide Level 34 H 33 H Chloride Level 96 L 96 L Creatinine 0.90 0.89 Direct Bilirubin 0.00 Globulin 3.30 H Glucose Level 111 105 INR International Normalized Ratio 5.60 Indirect Bilirubin 0.5 Potassium Level 3.9 3.6 Prothrombin Time 51.8 H Prothrombin Time Ratio 4.0 Sodium Level 138 138 Total Bilirubin 0.5 Total Protein 6.4 # Medications Medications Current Medications Digoxin (Digoxin) 0.125 mg DAILY@13 PO Last administered on 11/13/16 13:35; Admin Dose 0.125 MG; Start 11/13/16 at 13:00 Metoprolol Succinate (Toprol Xl) 25 mg DAILY PO Last administered on 11/13/16 09:27; Admin Dose 25 MG; Start 11/13/16 at 09:00 Ondansetron HCl (Zofran Inj) 4 mg Q6H PRN IV NAUSEA AND/OR VOMITING; Start at 20:30 Acetaminophen (Tylenol Tab) 650 mg Q6H PRN PO PAIN LEVEL 1-3 OR FEVER; Start at 20:30 Famotidine (Pepcid) 20 mg DAILY PO Last administered on 11/13/16 09:25; Admin Dose 20 MG; Start 11/12/16 at 21:00 Atorvastatin Calcium (Lipitor) 10 mg DAILY@21 PO Last administered on 21:31; Admin Dose 10 MG; Start 11/12/16 at 21:00 Clonidine (Catapres) 0.1 mg Q6 PO ; Start 11/13/16 at 12:00 Procedures Procedures cxr images reviewed Small bilateral pleural effusions with bibasilar atelectasis. EKG reviewed: afib, rate controlled EVE DELGADO Nov 13, 2016 23:58
[2016-11-14] VITALS (12 sets, daily range): BP systolic 100–137; BP diastolic 58–75; PULSE 53–89; RESP 16–18
[2016-11-14 06:46] LABS: BASOPHILS % 0.6 % (0.0-2.0); EOSINOPHILS # 0.1 10^3/ul (0.0-0.5); EOSINOPHILS % 1.5 % (0.0-7.0); HEMATOCRIT 41.4 % (37.0-47.0); HEMOGLOBIN 13.8 g/dl (12.0-16.0); LYMPHOCYTES # 0.6 10^3/ul (0.8-2.9); LYMPHOCYTES % 9.1 % (15.0-51.0); MEAN CORPUSCULAR HEMOGLOBIN 31.5 pg (29.0-33.0); MEAN CORPUSCULAR HGB CONC 33.3 g/dl (32.0-37.0); MEAN CORPUSCULAR VOLUME 94.8 fl (82.0-101.0); MEAN PLATELET VOLUME 9.6 fl (7.4-10.4); MONOCYTES % 15.1 % (0.0-11.0); NEUTROPHIL # 4.8 10^3/ul (1.6-7.5); NEUTROPHILS % 73.7 % (39.0-77.0); PLATELET COUNT 190 10^3/UL (140-440); RED BLOOD COUNT 4.37 10^6/ul (4.20-5.40); RED CELL DISTRIBUTION WIDTH 13.6 % (11.5-14.5); UNCORRECTED WBC 6.5 10^3/ul (4.8-10.8); WHITE BLOOD COUNT 6.5 10^3/ul (4.8-10.8)
[2016-11-14 06:52] LABS: CONDITION 1; LH ANALYZER COMMENTS 1
[2016-11-14 06:55] LABS: INR 1.97; PROTIME 22.6 Sec (12.2-14.2); PT RATIO 1.8
[2016-11-14 06:56] LABS: PARTIAL THROMBOPLASTIN TIME 34.8 Sec (25.0-35.0)
[2016-11-14 06:58] LABS: POTASSIUM 3.9 mmol/L (3.5-5.1)
[2016-11-14 07:01] LABS: CREATININE 0.9 mg/dl (0.44-1.00); PHOSPHORUS 3.5 mg/dl (2.5-4.9)
[2016-11-14 07:02] LABS: CALCIUM 8.4 mg/dl (8.4-10.2); MAGNESIUM 1.5 mg/dl (1.7-2.5)
[2016-11-14] MEDS: LEVOTHYROXINE 50 MCG TAB PO SCH (07:27)
--- NOTE | 2016-11-14 08:14 | PN ---
Date/Time of Note Date/Time of Note DATE: 11/14/16 TIME: 08:11 Assessment/Plan VTE Prophylaxis VTE Prophylaxis Intervention: other Lines/Catheters IV [facility] Saline Lock Urinary Cath still in place: No Assessment/Plan Assessment/Plan 1. CHF sec to diastolic dysfx improving. 2. Pleural effusions prob sec to 1, but needs pleural tap nonetheless as when she was quite "dry" effusions were unchanged. 3. Low Mag, will repelete and will start aldactone. 4. Dietary consult to be obtained, as needs more calories. Subjective 24 Hr Interval Summary Respiratory: shortness of breath (is mild) Cardiovascular: No chest pain Gastrointestinal: no complaints Genitourinary: No dysuria, No hematuria Exam/Review of Systems Vital Signs Vitals Vital Signs Date Time Temp Pulse Resp B/P Pulse Ox O2 Delivery O2 Flow Rate FiO2 11/14/16 08:06 97.6 68 17 137/75 95 11/13/16 11:14 Nasal Cannula 2.0 Intake and Output 11/13/16 11/13/16 11/14/16 15:00 23:00 07:00 Intake Total 1160 ml 200 ml Balance 1160 ml 200 ml Exam Neck: No jvd Respiratory: diminished breath sounds Cardiovascular: irregular rhythm Gastrointestinal: soft Extremities: edema (1+ pedal edema) Results Result Diagram: 11/14/1660411/14/16 06 Results 24 hrs Laboratory Tests Test 11/13/16 11:15 11/13/16 11:30 11/13/16 14:00 11/14/16 06:05 Basophils # 0.0 0.0 Basophils % 0.5 0.6 Eosinophils # 0.0 0.1 Eosinophils % 0.5 1.5 Hematocrit 42.4 41.4 Hemoglobin 14.1 13.8 Lymphocytes # 0.4 L 0.6 L Lymphocytes % 6.3 L 9.1 L Mean Corpuscular Hemoglobin 31.4 31.5 Mean Corpuscular Hemoglobin Concent 33.3 33.3 Mean Corpuscular Volume 94.3 94.8 Mean Platelet Volume 10.1 9.6 Monocytes # 0.8 1.0 H Monocytes % 11.7 H 15.1 H Neutrophils # 5.4 4.8 Neutrophils % 81.0 H 73.7 Nucleated Red Blood Cells # 0.0 0.0 Nucleated Red Blood Cells % 0.0 0.0 Platelet Count 195 190 Red Blood Count 4.50 4.37 Red Cell Distribution Width 14.0 13.6 White Blood Count 6.7 6.5 Alanine Aminotransferase (ALT/SGPT) 26 Albumin 3.1 #L Albumin/Globulin Ratio 0.93 Alkaline Phosphatase 60 Anion Gap 12 13 11 Aspartate Amino Transf (AST/SGOT) 29 Blood Urea Nitrogen 20 19 20 Calcium Level 8.7 8.7 8.4 Carbon Dioxide Level 34 H 33 H 35 H Chloride Level 96 L 96 L 97 Creatinine 0.90 0.89 0.90 Direct Bilirubin 0.00 Globulin 3.30 H Glucose Level 111 105 79 INR International Normalized Ratio 5.60 1.97 Indirect Bilirubin 0.5 Potassium Level 3.9 3.6 3.9 Prothrombin Time 51.8 H 22.6 #H Prothrombin Time Ratio 4.0 1.8 Sodium Level 138 138 139 Total Bilirubin 0.5 Total Protein 6.4 # Activated Partial Thromboplast Time 34.8 B-Type Natriuretic Peptide 5320 H Digoxin Level 1.4 Magnesium Level 1.5 L Phosphorus Level 3.5 Medications Medications Current Medications Digoxin (Digoxin) 0.125 mg DAILY@13 PO Last administered on 11/13/16 13:35; Admin Dose 0.125 MG; Start 11/13/16 at 13:00 Metoprolol Succinate (Toprol Xl) 25 mg DAILY PO Last administered on 11/13/16 09:27; Admin Dose 25 MG; Start 11/13/16 at 09:00 Ondansetron HCl (Zofran Inj) 4 mg Q6H PRN IV NAUSEA AND/OR VOMITING; Start at 20:30 Acetaminophen (Tylenol Tab) 650 mg Q6H PRN PO PAIN LEVEL 1-3 OR FEVER; Start at 20:30 Famotidine (Pepcid) 20 mg DAILY PO Last administered on 11/13/16 09:25; Admin Dose 20 MG; Start 11/12/16 at 21:00 Atorvastatin Calcium (Lipitor) 10 mg DAILY@21 PO Last administered on 21:31; Admin Dose 10 MG; Start 11/12/16 at 21:00 Clonidine (Catapres) 0.1 mg Q6 PO ; Start 11/13/16 at 12:00 CATARINO RAMOS MD Nov 14, 2016 08:14
[2016-11-14] MEDS ORDERED: MAGNESIUM SULFATE 3 GM in SOD CHLORIDE 0.9% 100 ML IVPB ONE (08:30)
[2016-11-14] MEDS ORDERED: PHYTONADIONE (1 MG/ML PO SYG) PO ONE (08:30)
[2016-11-14] MEDS ORDERED: POTASSIUM CHLORIDE (SR) 10 MEQ TAB PO SCH (09:00)
--- NOTE | 2016-11-14 09:18 | CONS ---
Date/Time of Note Date/Time of Note DATE: 11/14/16 TIME: 09:17 Consult Date/Type/Reason Admit Date/Time Nov 12, 2016 at 17:26 Initial Consult Date Type of Consultation: pulmonary Subjective Patient's breathing somewhat better today with diuretics Objective Vital Signs Date Time Temp Pulse Resp B/P Pulse Ox O2 Delivery O2 Flow Rate FiO2 11/14/16 08:12 53 11/14/16 08:06 97.6 17 137/75 95 11/13/16 11:14 Nasal Cannula 2.0 Intake and Output 11/13/16 11/13/16 11/14/16 15:00 23:00 07:00 Intake Total 1160 ml 200 ml Balance 1160 ml 200 ml PHYSICAL EXAMINATION: GENERAL: Thin lady, awake, alert, oriented, comfortable at rest, talking in full and complete sentences. VITAL SIGNS: As above NECK: Supple, no JVD or lymphadenopathy. CARDIAC: S1, S2, no added sounds or murmurs. CHEST: Diminished air entry bilaterally. ABDOMEN: Soft, nontender. No guarding or rebound. EXTREMITIES: No cyanosis, clubbing or edema. NEUROLOGIC: Generalized weakness, but no focal deficits. Results/Medications Result Diagram: 11/14/16 0605 11/14/16 0605 Results 24 hrs Laboratory Tests Test 11/13/16 11:15 11/13/16 11:30 11/13/16 14:00 11/14/16 06:05 Basophils # 0.0 0.0 Basophils % 0.5 0.6 Eosinophils # 0.0 0.1 Eosinophils % 0.5 1.5 Hematocrit 42.4 41.4 Hemoglobin 14.1 13.8 Lymphocytes # 0.4 L 0.6 L Lymphocytes % 6.3 L 9.1 L Mean Corpuscular Hemoglobin 31.4 31.5 Mean Corpuscular Hemoglobin Concent 33.3 33.3 Mean Corpuscular Volume 94.3 94.8 Mean Platelet Volume 10.1 9.6 Monocytes # 0.8 1.0 H Monocytes % 11.7 H 15.1 H Neutrophils # 5.4 4.8 Neutrophils % 81.0 H 73.7 Nucleated Red Blood Cells # 0.0 0.0 Nucleated Red Blood Cells % 0.0 0.0 Platelet Count 195 190 Red Blood Count 4.50 4.37 Red Cell Distribution Width 14.0 13.6 White Blood Count 6.7 6.5 Alanine Aminotransferase (ALT/SGPT) 26 Albumin 3.1 #L Albumin/Globulin Ratio 0.93 Alkaline Phosphatase 60 Anion Gap 12 13 11 Aspartate Amino Transf (AST/SGOT) 29 Blood Urea Nitrogen 20 19 20 Calcium Level 8.7 8.7 8.4 Carbon Dioxide Level 34 H 33 H 35 H Chloride Level 96 L 96 L 97 Creatinine 0.90 0.89 0.90 Direct Bilirubin 0.00 Globulin 3.30 H Glucose Level 111 105 79 INR International Normalized Ratio 5.60 1.97 Indirect Bilirubin 0.5 Potassium Level 3.9 3.6 3.9 Prothrombin Time 51.8 H 22.6 #H Prothrombin Time Ratio 4.0 1.8 Sodium Level 138 138 139 Total Bilirubin 0.5 Total Protein 6.4 # Activated Partial Thromboplast Time 34.8 B-Type Natriuretic Peptide 5320 H Carcinoembryonic Antigen 2.2 Digoxin Level 1.4 Magnesium Level 1.5 L Phosphorus Level 3.5 Medications Current Medications Metoprolol Succinate (Toprol Xl) 25 mg DAILY PO Last administered on 11/13/16 09:27; Admin Dose 25 MG; Start 11/13/16 at 09:00 Ondansetron HCl (Zofran Inj) 4 mg Q6H PRN IV NAUSEA AND/OR VOMITING; Start at 20:30 Acetaminophen (Tylenol Tab) 650 mg Q6H PRN PO PAIN LEVEL 1-3 OR FEVER; Start at 20:30 Famotidine (Pepcid) 20 mg DAILY PO Last administered on 11/13/16 09:25; Admin Dose 20 MG; Start 11/12/16 at 21:00 Atorvastatin Calcium (Lipitor) 10 mg DAILY@21 PO Last administered on 21:31; Admin Dose 10 MG; Start 11/12/16 at 21:00 Clonidine 0.1 mg 0.1 mg Q6 PO ; Start 11/13/16 at 12:00 Magnesium Sulfate/ Sodium Chloride (Magnesium Sulfate/NS) 106 ml @ 35.333 mls/ hr ONCE ONCE IVPB ; Start 11/14/16 at 08:30; Stop 11/14/16 at 11:29 Potassium Chloride (Klor-Con 10) 20 meq TID PO ; Start 11/14/16 at 09:00; Stop 11/14/16 at 16:00 Spironolactone (Aldactone) 25 mg DAILY PO ; Start 11/14/16 at 09:00 Assessment/Plan Chief Complaint/Hosp Course IMPRESSION AND PLAN: 1. Dyspnea, likely secondary to congestive cardiac failure. 2. History of breast cancer. 3. Possible recent gastroenteritis. 4. Bilateral pleural effusions likely secondary to heart failure The patient will require: 1. Gentle diuresis. 2. Echocardiogram. 3. Aspiration precautions. 4. DVT and GI prophylaxis. 5. Anticoagulation held for possible thoracentesis depending upon radiographic changes with diuretics Problems: TALIA PEDERSEN MD, [facility] Nov 14, 2016 09:18
--- NOTE | 2016-11-14 10:11 | CONS ---
DATE OF ADMISSION: 11/12/2016 DATE OF CONSULTATION: 11/14/2016 MEDICAL ONCOLOGY CONSULTATION REQUESTING PHYSICIAN: Dr. Jarvis Gayle. REASON FOR CONSULTATION: Possible metastatic breast carcinoma. Dear Dr. Gayle: Thank you very much for asking me to see this very interesting and pleasant patient in oncologic con sultation. As you aware, I am familiar with Ms. Lowe, having seen her in November of 2015. The patient at that time was being seen following undergoing a right modified radical mastectomy on 09/2015. The patient at that time was found to have an invasive ductal carcinoma of the left breast which was ER and [place] positive. The patient had 1of 3 lymph nodes, which was found to have a microsc opic focus of tumor of 0.5 mm. The patient did undergo adjuvant external beam radiation therapy i ch was completed on 10/05/2015. The patient, as noted, was seen on 11/30/2015 and was started on ad juvant hormonal therapy with anastrozole at 1 mg per day. The patient, however, apparently tolerated this poorly. She did have some weight loss and the anast rozole was discontinued. It is unclear exactly for how long the patient did take this medication. The patient is now admitted to [facility] with approximately a 1-month history of increasing shortness of breath. The patient has been found to have bilateral pleural effusions. A CT scan of the chest, abdomen and pelvis was performed as an outpatient on 11/06/2015. This revea led as mentioned, moderate right greater than left-sided pleural effusion with bibasilar atelectasis or infiltrates. There was no other infiltrate, no pulmonary nodules or masses noted. No hilar or mediastinal lymphadenopathy was noted. There was also a small pericardial effusion with mild cardio megaly. The CT scan of the abdomen and pelvis were negative. The patient was given diuresis at home, but is now admitted with increasing shortness of breath as w ell as some complaints of weight loss. The patient at this time has a white count of 6500, hemoglobin 13.8, hematocrit 41.4 and platelet co unt 190,000. The patient's comprehensive metabolic panel is relatively normal. On admission, the p atient's total bilirubin was 0.6 with 0.6 indirect, AST 34, ALT 28, alkaline phosphatase 85, total p rotein was 8.2, albumin 4.1, globulin 4.1. The patient on admission had a prothrombin time of 48.2 seconds, INR 1.55. Today, the protime is 22 .6 seconds, INR 1.97, PTT is 34.8 seconds. Chest x-ray done on this admission does show small bilateral pleural effusions with bibasilar atelec tasis and mild cardiomegaly. The patient has had an echocardiogram. This demonstrates left ventricular ejection fraction of 65%. There was a small pericardial effusion with no evidence of pericardial tamponade. The bilateral p leural effusions were noted. It was felt that the patient's left ventricular function and size were normal. The patient's past history is significant in that in 1999 she underwent a left modified radical mast ectomy for invasive carcinoma. It is unclear what the exact pathology was at that time. She did re ceive adjuvant chemotherapy followed by radiation and 5 years of adjuvant tamoxifen. Other medical problems have included hypertension, hyperlipidemia, atrial fibrillation, hypothyroidi sm and GERD. PAST SURGICAL HISTORY: Included bilateral mastectomies and removal of multiple skin cancers, as wel l as an appendectomy in 2007. FAMILY HISTORY: Remarkable in that the patient states all 4 of her sisters have had breast carcinom a. There is no family history of ovarian, endometrial or colorectal carcinoma. One brother did of pancreatic carcinoma and another is prostatic carcinoma. I did submit a genetic testing which revealed no deleterious mutations. MEDICATIONS: Prior to admission included: 1. Warfarin 3 mg a day. 2. Digoxin 0.12 mg per day. 3. Metoprolol extended release 25 mg a day. 4. Synthroid 50 mcg per day. 5. Lovastatin 40 mg per day. 6. Famotidine 20 mg per day. 7. She has recently been taking diuretics as well. PHYSICAL EXAMINATION GENERAL: At this time reveals a well-developed, well-nourished, elderly female who is in no acute distress. VITAL SIGNS: Temperature 97.5, pulse 65 per minute and irregular, respirations 18 per minute, blood pressure 100/68 and pulse oximetry is 92%. SKIN: No ecchymosis, petechiae or rashes. HEENT: Normocephalic. No evidence of trauma. The pupils are equal, round, react to light and acco mmodation. Sclerae nonicteric. Oral mucosa is moist without lesions. Tongue is well papillated. There is no gingival hyperplasia, no hypertrophy of Waldeyer ring, no mucosa telangiectasias. NECK: Supple. There appears to be slight jugular venous distention, no carotid bruits. CHEST: Decreased breath sounds in both bases, but no rhonchi, wheezes, rales or rubs. No pain on p ercussion of the spine, sternum, clavicles or ribs. BREASTS: Bilaterally surgically absent. The incisions are well healed. There are no chest wall no dules noted. No axillary masses. ABDOMEN: Soft. No masses or ascites. There is a midline surgical scar from the umbilicus inferior ly. This is well healed. No hernia defects, no nodules. EXTREMITIES: Good range of motion. No clubbing or cyanosis. There is 1 to 2+, bilateral pedal elise ma. There are no palpable cords or Homans sign. NEUROLOGIC: Normal. DISCUSSION: This patient does have bilateral pleural effusions and certainly one must consider the possibility that these effusions are due to metastatic carcinoma. If this is the case, it could eit her be from the more recent right-sided breast lesion or also possibly the left breast malignancy fr om 17 years ago. The patient has no other evidence of metastatic disease. There are bilateral pleural effusions but no evidence of any pulmonary parenchymal abnormalities are pleural-based masses, no mediastinal or h ilar adenopathy. I feel that rather than metastatic breast carcinoma, this more likely represents pleural effusions r elated to chronic congestive heart failure. I do feel, however, that it pleural fluid should be alesha pled in order to determine if this is exudative or transudative effusion and also to evaluate cytolo gy. At this time, I will obtain a CEA and CA 27-29. One must also consider the possibility of a new mal ignancy, although again the patient has no evidence of any other abnormalities other than the pleura l effusions. Once again, thank you very much for the opportunity of participating in the medical care of this joselyn y interesting and pleasant patient. I will be happy to follow this patient with you and assist in h er oncologic evaluation and follow up as necessary. Dictated By: LAYLA MUÑOZ MD, SR/REI Conf#: [id number] DID#: [id number]
[2016-11-14] MEDS: FUROSEMIDE 40 MG INJ IV SCH ×2 (10:22→17:55)
[2016-11-14] MEDS: SPIRONOLACTONE 25 MG TAB PO SCH (10:23)
[2016-11-14] MEDS: FAMOTIDINE 20 MG TAB PO SCH (10:23)
[2016-11-14] MEDS: METOPROLOL (XL) 25 MG TAB PO SCH (10:24)
[2016-11-14] MEDS: POTASSIUM CHLORIDE 20 MEQ POWDER FOR ORAL SOLN PO SCH ×3 (10:55→21:08)
--- NOTE | 2016-11-14 13:04 | CONS ---
Date/Time of Note Date/Time of Note DATE: 11/14/16 TIME: 12:58 Assessment/Plan Assessment/Plan Chief Complaint/Hosp Course # Fluid overload- bilateral pleural effusion + ble edema. has normal lvef on echo, small effusion. patient failed outpatient diuresis/mgmt. picture is consistent with acute on chronic diastolic heart failure. however given previous breast CA hx would recommend thoracentesis if enough fluid to remove ( therapeutic/diagnostic). - cont gentle diuresis, goal net neg 1L Day - strict i/o - follow K/Mag and supplement as needed - hold anticoag, consider diagnostic/therapeutic thoracentesis if enough fluid to remove # pericardial effusion- small anterior on subcostal view on echo, similar to slightly decreased from 2016 echo no e/o hemodynamic significance. - f/u echo periodically as outpt # afib- chronic, rate controlled - cont bb - hold digoxin given elevated level - holding coumadin given inr supratherapeutic/possible need for procedure # HTN - cont home meds - additional agent as needed # breast CA hx - oncology following, assessment noted. Problems: Consultation Date/Type/Reason Admit Date/Time Nov 14, 2016 at 11:05 Initial Consult Date Type of Consultation: cardiology Referring Provider: CATARINO RAMOS MD 24 HR Interval Summary Free Text/Dictation no acute events. tele tracings reviewed, afib, rate controlled. pt denies any cp /palpitations. has been up to commode, not walking yet to bathroom. denies any cough, sob at rest. states she is improved. Detailed Summary Eyes: no complaints ENT: no complaints Respiratory: no complaints Cardiovascular: no complaints Gastrointestinal: no complaints Exam/Review of Systems Vital Signs Vitals Vital Signs Date Time Temp Pulse Resp B/P Pulse Ox O2 Delivery O2 Flow Rate FiO2 11/14/16 12:30 72 11/14/16 12:06 98.1 18 126/66 98 11/13/16 11:14 Nasal Cannula 2.0 Intake and Output 11/13/16 11/13/16 11/14/16 15:00 23:00 07:00 Intake Total 1160 ml 200 ml Balance 1160 ml 200 ml Exam Constitutional: alert, oriented Psych: no complaints Head: normocephalic Eyes: EOMI, nl conjunctiva, nl lids ENMT: nl external ears & nose, nl nasal mucosa & septum Respiratory: other (decrease bs bilatearl base) Cardiovascular: irregular rhythm, nl pulses, systolic murmur Gastrointestinal: non-tender, soft Musculoskeletal: swelling (mikdl ble edema ) Extremities: normal pulses Neurological: CAGE LOADER II-XII intact, nl mental status, nl speech Results Result Diagram: 11/14/16 0605 11/14/16 0605 Results 24 hrs Laboratory Tests Test 11/13/16 14:00 11/14/16 06:05 Anion Gap 13 11 Blood Urea Nitrogen 19 20 Calcium Level 8.7 8.4 Carbon Dioxide Level 33 H 35 H Chloride Level 96 L 97 Creatinine 0.89 0.90 Glucose Level 105 79 Potassium Level 3.6 3.9 Sodium Level 138 139 Activated Partial Thromboplast Time 34.8 B-Type Natriuretic Peptide 5320 H Basophils # 0.0 Basophils % 0.6 Carcinoembryonic Antigen 2.2 Digoxin Level 1.4 Eosinophils # 0.1 Eosinophils % 1.5 Hematocrit 41.4 Hemoglobin 13.8 INR International Normalized Ratio 1.97 Lymphocytes # 0.6 L Lymphocytes % 9.1 L Magnesium Level 1.5 L Mean Corpuscular Hemoglobin 31.5 Mean Corpuscular Hemoglobin Concent 33.3 Mean Corpuscular Volume 94.8 Mean Platelet Volume 9.6 Monocytes # 1.0 H Monocytes % 15.1 H Neutrophils # 4.8 Neutrophils % 73.7 Nucleated Red Blood Cells # 0.0 Nucleated Red Blood Cells % 0.0 Phosphorus Level 3.5 Platelet Count 190 Prothrombin Time 22.6 #H Prothrombin Time Ratio 1.8 Red Blood Count 4.37 Red Cell Distribution Width 13.6 White Blood Count 6.5 Medications Medications Current Medications Metoprolol Succinate (Toprol Xl) 25 mg DAILY PO Last administered on 11/14/16 10:24; Admin Dose 25 MG; Start 11/13/16 at 09:00 Ondansetron HCl (Zofran Inj) 4 mg Q6H PRN IV NAUSEA AND/OR VOMITING; Start at 20:30 Acetaminophen (Tylenol Tab) 650 mg Q6H PRN PO PAIN LEVEL 1-3 OR FEVER; Start at 20:30 Famotidine (Pepcid) 20 mg DAILY PO Last administered on 11/14/16 10:23; Admin Dose 20 MG; Start 11/12/16 at 21:00 Atorvastatin Calcium (Lipitor) 10 mg DAILY@21 PO Last administered on 21:31; Admin Dose 10 MG; Start 11/12/16 at 21:00 Clonidine (Catapres) 0.1 mg Q6 PO ; Start 11/13/16 at 12:00 Spironolactone (Aldactone) 25 mg DAILY PO Last administered on 11/14/16 10:23 ; Admin Dose 25 MG; Start 11/14/16 at 09:00 Potassium Chloride (Potassium Chloride Pwd/Soln) 20 meq TID PO Last administered on 11/14/16 10:55; Admin Dose 20 MEQ; Start 11/14/16 at 11:00 Procedures Procedures tele reviewed cxr images reviewed Small bilateral pleural effusions with bibasilar atelectasis. EVE DELGADO Nov 14, 2016 13:04
[2016-11-14] MEDS: ATORVASTATIN 10 MG TAB PO SCH (21:08)
[2016-11-15] VITALS (13 sets, daily range): BP systolic 88–144; BP diastolic 52–77; PULSE 44–63; RESP 16–18
[2016-11-15] MEDS: LEVOTHYROXINE 50 MCG TAB PO SCH (06:08)
[2016-11-15 06:23] LABS: BASOPHILS % 0.7 % (0.0-2.0); EOSINOPHILS # 0.1 10^3/ul (0.0-0.5); EOSINOPHILS % 2.1 % (0.0-7.0); HEMOGLOBIN 13.6 g/dl (12.0-16.0); LYMPHOCYTES # 0.6 10^3/ul (0.8-2.9); LYMPHOCYTES % 8.6 % (15.0-51.0); MEAN CORPUSCULAR HEMOGLOBIN 31.9 pg (29.0-33.0); MEAN CORPUSCULAR HGB CONC 33.9 g/dl (32.0-37.0); MEAN CORPUSCULAR VOLUME 94.1 fl (82.0-101.0); MEAN PLATELET VOLUME 9.4 fl (7.4-10.4); MONOCYTES % 15.9 % (0.0-11.0); NEUTROPHIL # 4.8 10^3/ul (1.6-7.5); NEUTROPHILS % 72.7 % (39.0-77.0); PLATELET COUNT 186 10^3/UL (140-440); RED BLOOD COUNT 4.25 10^6/ul (4.20-5.40); RED CELL DISTRIBUTION WIDTH 13.7 % (11.5-14.5); UNCORRECTED WBC 6.6 10^3/ul (4.8-10.8); WHITE BLOOD COUNT 6.6 10^3/ul (4.8-10.8)
[2016-11-15 06:48] LABS: CONDITION 1; LH ANALYZER COMMENTS 1
[2016-11-15 06:50] LABS: INR 1.25; PROTIME 15.8 Sec (12.2-14.2); PT RATIO 1.2
[2016-11-15 08:50] LABS: POTASSIUM 3.9 mmol/L (3.5-5.1)
[2016-11-15 08:52] LABS: CREATININE 0.78 mg/dl (0.44-1.00)
[2016-11-15 08:54] LABS: CALCIUM 8.4 mg/dl (8.4-10.2); MAGNESIUM 1.9 mg/dl (1.7-2.5); PHOSPHORUS 3.2 mg/dl (2.5-4.9)
[2016-11-15] MEDS: POTASSIUM CHLORIDE 20 MEQ POWDER FOR ORAL SOLN PO SCH ×3 (09:01→20:57)
[2016-11-15] MEDS: SPIRONOLACTONE 25 MG TAB PO SCH (09:01)
[2016-11-15] MEDS: FAMOTIDINE 20 MG TAB PO SCH (09:01)
--- NOTE | 2016-11-15 10:14 | CONS ---
Date/Time of Note Date/Time of Note DATE: 11/15/16 TIME: 10:12 Consult Date/Type/Reason Admit Date/Time Nov 14, 2016 at 11:05 Type of Consultation: Pulm Ordering Provider: CATARINO RAMOS MD Subjective Still has orthopnea Little better overall. Objective Vital Signs Date Time Temp Pulse Resp B/P Pulse Ox O2 Delivery O2 Flow Rate FiO2 11/15/16 08:21 44 11/15/16 08:12 97.8 18 88/52 97 11/13/16 11:14 Nasal Cannula 2.0 Intake and Output 11/14/16 11/14/16 11/15/16 15:00 23:00 07:00 Intake Total 756 ml 300 ml Output Total 800 ml 700 ml Balance -44 ml -400 ml PHYSICAL EXAMINATION: GENERAL: Thin lady, awake, alert, oriented, comfortable at rest, talking in full and complete sentences. VITAL SIGNS: As above NECK: Supple, no JVD or lymphadenopathy. CARDIAC: S1, S2, no added sounds or murmurs. CHEST: Diminished air entry bilaterally. ABDOMEN: Soft, nontender. No guarding or rebound. EXTREMITIES: No cyanosis, clubbing or edema. NEUROLOGIC: Generalized weakness, but no focal deficits. Results/Medications Result Diagram: 11/15/16 0545 11/15/16 0545 Results 24 hrs cxr ongoing right effusion. Laboratory Tests Test 11/15/16 05:45 Anion Gap 9 Basophils # 0.0 Basophils % 0.7 Blood Urea Nitrogen 19 Calcium Level 8.4 Carbon Dioxide Level 36 H Chloride Level 96 L Creatinine 0.78 Eosinophils # 0.1 Eosinophils % 2.1 Glucose Level 85 Hematocrit 40.0 Hemoglobin 13.6 INR International Normalized Ratio 1.25 Lymphocytes # 0.6 L Lymphocytes % 8.6 L Magnesium Level 1.9 Mean Corpuscular Hemoglobin 31.9 Mean Corpuscular Hemoglobin Concent 33.9 Mean Corpuscular Volume 94.1 Mean Platelet Volume 9.4 Monocytes # 1.0 H Monocytes % 15.9 H Neutrophils # 4.8 Neutrophils % 72.7 Nucleated Red Blood Cells # 0.0 Nucleated Red Blood Cells % 0.0 Phosphorus Level 3.2 Platelet Count 186 Potassium Level 3.9 Prothrombin Time 15.8 #H Prothrombin Time Ratio 1.2 Red Blood Count 4.25 Red Cell Distribution Width 13.7 Sodium Level 137 White Blood Count 6.6 Medications Current Medications Metoprolol Succinate (Toprol Xl) 25 mg DAILY PO Last administered on 11/14/16 10:24; Admin Dose 25 MG; Start 11/13/16 at 09:00; Status Future Hold Ondansetron HCl (Zofran Inj) 4 mg Q6H PRN IV NAUSEA AND/OR VOMITING; Start at 20:30 Acetaminophen (Tylenol Tab) 650 mg Q6H PRN PO PAIN LEVEL 1-3 OR FEVER; Start at 20:30 Famotidine (Pepcid) 20 mg DAILY PO Last administered on 11/15/16 09:01; Admin Dose 20 MG; Start 11/12/16 at 21:00 Atorvastatin Calcium (Lipitor) 10 mg DAILY@21 PO Last administered on 21:08; Admin Dose 10 MG; Start 11/12/16 at 21:00 Clonidine (Catapres) 0.1 mg Q6 PO Last administered on 11/15/16 06:09; Admin Dose 0.1 MG; Start 11/13/16 at 12:00 Spironolactone (Aldactone) 25 mg DAILY PO Last administered on 11/15/16 09:01 ; Admin Dose 25 MG; Start 11/14/16 at 09:00 Potassium Chloride (Potassium Chloride Pwd/Soln) 20 meq TID PO Last administered on 11/15/16 09:01; Admin Dose 20 MEQ; Start 11/14/16 at 11:00 Assessment/Plan Chief Complaint/Hosp Course IMPRESSION AND PLAN: 1. Dyspnea, likely secondary to congestive cardiac failure. 2. History of breast cancer. 3. Possible recent gastroenteritis. 4. Bilateral pleural effusions possibly secondary to heart failure, right greater than left The patient will require: 1. Gentle diuresis. 2. Echocardiogram. 3. Aspiration precautions. 4. DVT and GI prophylaxis. 5. Thoracentesis left lung with pleural fluid studies. Problems: TALIA PEDERSEN MD, [facility] Nov 15, 2016 10:14
--- NOTE | 2016-11-15 11:15 | RADRPT ---
PROCEDURE: XR Chest. CLINICAL INDICATION: CHF versus pneumonia. TECHNIQUE: Single AP portable chest COMPARISON: 11/12/2016 FINDINGS: The cardiac silhouette is mildly enlarged. There is patchy right perihilar air space opacity and bi lateral pleural effusions. This may represent pulmonary edema and CHF of superimposed infectious pr ocess cannot be excluded. Atherosclerotic calcification of the aorta. Left lower lobe calcified gr anuloma. Postoperative changes in the left axilla and right axilla. . No pneumothorax. The osseous structures and soft tissues are unremarkable. IMPRESSION: Bilateral pleural effusions and right perihilar air space opacity. This may reflect pulmonary edema or pneumonia. Correlate clinically. RPTAT:AAJJ Willie Mclean Physician Date Time Electronically viewed and signed by Physician Danisha on 11/15/2016 11:15 SINDY/
--- NOTE | 2016-11-15 11:59 | PN ---
Date/Time of Note Date/Time of Note DATE: 11/15/16 TIME: 11:57 Assessment/Plan VTE Prophylaxis VTE Prophylaxis Intervention: other Lines/Catheters IV Catheter Type (from Nrs): Saline Lock Urinary Cath still in place: No Assessment/Plan Assessment/Plan 1. CHF slowly resolving 2. Breast CA, oncol eval noted 3. Atrial fib with well controlled ventric response 4. Residual pleural effusion, to have thoracentesis today 5. Will start dc planning Subjective 24 Hr Interval Summary Respiratory: shortness of breath (is better), No cough Cardiovascular: No chest pain Gastrointestinal: no complaints Genitourinary: no complaints Exam/Review of Systems Vital Signs Vitals Vital Signs Date Time Temp Pulse Resp B/P Pulse Ox O2 Delivery O2 Flow Rate FiO2 11/15/16 11:50 98.9 53 17 99/53 95 11/13/16 11:14 Nasal Cannula 2.0 Intake and Output 11/14/16 11/14/16 11/15/16 15:00 23:00 07:00 Intake Total 756 ml 300 ml Output Total 800 ml 700 ml Balance -44 ml -400 ml Exam Neck: No jvd Respiratory: diminished breath sounds Cardiovascular: No irregular rhythm Gastrointestinal: soft Extremities: edema (1-2+ pedal noted) Results Result Diagram: 11/15/16 0545 11/15/16 0545 Results 24 hrs Laboratory Tests Test 11/15/16 05:45 Anion Gap 9 Basophils # 0.0 Basophils % 0.7 Blood Urea Nitrogen 19 Calcium Level 8.4 Carbon Dioxide Level 36 H Chloride Level 96 L Creatinine 0.78 Eosinophils # 0.1 Eosinophils % 2.1 Glucose Level 85 Hematocrit 40.0 Hemoglobin 13.6 INR International Normalized Ratio 1.25 Lymphocytes # 0.6 L Lymphocytes % 8.6 L Magnesium Level 1.9 Mean Corpuscular Hemoglobin 31.9 Mean Corpuscular Hemoglobin Concent 33.9 Mean Corpuscular Volume 94.1 Mean Platelet Volume 9.4 Monocytes # 1.0 H Monocytes % 15.9 H Neutrophils # 4.8 Neutrophils % 72.7 Nucleated Red Blood Cells # 0.0 Nucleated Red Blood Cells % 0.0 Phosphorus Level 3.2 Platelet Count 186 Potassium Level 3.9 Prothrombin Time 15.8 #H Prothrombin Time Ratio 1.2 Red Blood Count 4.25 Red Cell Distribution Width 13.7 Sodium Level 137 White Blood Count 6.6 Medications Medications Current Medications Metoprolol Succinate (Toprol Xl) 25 mg DAILY PO Last administered on 11/14/16 10:24; Admin Dose 25 MG; Start 11/13/16 at 09:00; Status Future Hold Ondansetron HCl (Zofran Inj) 4 mg Q6H PRN IV NAUSEA AND/OR VOMITING; Start at 20:30 Acetaminophen (Tylenol Tab) 650 mg Q6H PRN PO PAIN LEVEL 1-3 OR FEVER; Start at 20:30 Famotidine (Pepcid) 20 mg DAILY PO Last administered on 11/15/16 09:01; Admin Dose 20 MG; Start 11/12/16 at 21:00 Atorvastatin Calcium (Lipitor) 10 mg DAILY@21 PO Last administered on 21:08; Admin Dose 10 MG; Start 11/12/16 at 21:00 Clonidine (Catapres) 0.1 mg Q6 PO Last administered on 11/15/16 06:09; Admin Dose 0.1 MG; Start 11/13/16 at 12:00 Spironolactone (Aldactone) 25 mg DAILY PO Last administered on 11/15/16 09:01 ; Admin Dose 25 MG; Start 11/14/16 at 09:00 Potassium Chloride (Potassium Chloride Pwd/Soln) 20 meq TID PO Last administered on 11/15/16 09:01; Admin Dose 20 MEQ; Start 11/14/16 at 11:00 CATARINO RAMOS MD Nov 15, 2016 11:59
[2016-11-15] MEDS ORDERED: FUROSEMIDE 40 MG INJ IV SCH (12:00)
--- NOTE | 2016-11-15 13:52 | PN ---
Date/Time of Note Date/Time of Note DATE: 11/15/16 TIME: 13:49 Assessment/Plan VTE Prophylaxis VTE Prophylaxis Intervention: other (per primary MD) Lines/Catheters IV Catheter Type (from Nrs): Saline Lock Urinary Cath still in place: No Assessment/Plan Assessment/Plan Pt is alert and coherent. No respiratory distress but she is in bed and not active. CEA and CA27.29 are not elevated. Thoracentesis is being planned. It seems most likely that the effusions are not malignant but until fluid is examined, we cannot be sure. Subjective 24 Hr Interval Summary Free Text/Dictation Pt says that she feels better than when she came to the hospital. Exam/Review of Systems Vital Signs Vitals Vital Signs Date Time Temp Pulse Resp B/P Pulse Ox O2 Delivery O2 Flow Rate FiO2 11/15/16 12:33 51 11/15/16 11:50 98.9 17 99/53 95 11/13/16 11:14 Nasal Cannula 2.0 Intake and Output 11/14/16 11/14/16 11/15/16 15:00 23:00 07:00 Intake Total 756 ml 300 ml Output Total 800 ml 700 ml Balance -44 ml -400 ml Exam Constitutional: alert, oriented Head: normocephalic Eyes: nl conjunctiva Neck: supple Respiratory: clear to auscultation, diminished breath sounds Cardiovascular: regular rate and rhythm Gastrointestinal: soft Results Result Diagram: 11/15/16 0545 11/15/16 0545 Results 24 hrs Laboratory Tests Test 11/15/16 05:45 Anion Gap 9 Basophils # 0.0 Basophils % 0.7 Blood Urea Nitrogen 19 Calcium Level 8.4 Carbon Dioxide Level 36 H Chloride Level 96 L Creatinine 0.78 Eosinophils # 0.1 Eosinophils % 2.1 Glucose Level 85 Hematocrit 40.0 Hemoglobin 13.6 INR International Normalized Ratio 1.25 Lymphocytes # 0.6 L Lymphocytes % 8.6 L Magnesium Level 1.9 Mean Corpuscular Hemoglobin 31.9 Mean Corpuscular Hemoglobin Concent 33.9 Mean Corpuscular Volume 94.1 Mean Platelet Volume 9.4 Monocytes # 1.0 H Monocytes % 15.9 H Neutrophils # 4.8 Neutrophils % 72.7 Nucleated Red Blood Cells # 0.0 Nucleated Red Blood Cells % 0.0 Phosphorus Level 3.2 Platelet Count 186 Potassium Level 3.9 Prothrombin Time 15.8 #H Prothrombin Time Ratio 1.2 Red Blood Count 4.25 Red Cell Distribution Width 13.7 Sodium Level 137 White Blood Count 6.6 Medications Medications Current Medications Metoprolol Succinate (Toprol Xl) 25 mg DAILY PO Last administered on 11/14/16 10:24; Admin Dose 25 MG; Start 11/13/16 at 09:00; Status Future Hold Ondansetron HCl (Zofran Inj) 4 mg Q6H PRN IV NAUSEA AND/OR VOMITING; Start at 20:30 Acetaminophen (Tylenol Tab) 650 mg Q6H PRN PO PAIN LEVEL 1-3 OR FEVER; Start at 20:30 Famotidine (Pepcid) 20 mg DAILY PO Last administered on 11/15/16 09:01; Admin Dose 20 MG; Start 11/12/16 at 21:00 Atorvastatin Calcium (Lipitor) 10 mg DAILY@21 PO Last administered on 21:08; Admin Dose 10 MG; Start 11/12/16 at 21:00 Clonidine (Catapres) 0.1 mg Q6 PO Last administered on 11/15/16 06:09; Admin Dose 0.1 MG; Start 11/13/16 at 12:00 Spironolactone (Aldactone) 25 mg DAILY PO Last administered on 11/15/16 09:01 ; Admin Dose 25 MG; Start 11/14/16 at 09:00 Potassium Chloride (Potassium Chloride Pwd/Soln) 20 meq TID PO Last administered on 11/15/16 09:01; Admin Dose 20 MEQ; Start 11/14/16 at 11:00 Furosemide (Lasix) 40 mg DAILY IV ; Start 11/15/16 at 12:00; Stop 11/15/16 at 22 :00 Warfarin Sodium (Coumadin) 1 mg ONCE@17 ONCE PO ; Start 11/15/16 at 17:00; Stop 11/15/16 at 17:01 CATARINO HUERTAS MD Nov 15, 2016 13:52
[2016-11-15] MEDS ORDERED: LIDOCAINE 1% (MPF) 5 ML VIAL ONE (16:26)
[2016-11-15] MEDS ORDERED: WARFARIN 1 MG TAB PO ONE (17:00)
--- NOTE | 2016-11-15 17:29 | RADRPT ---
PROCEDURE: US guided right thoracentesis. CLINICAL INDICATION: Shortness of breath. Right pleural effusion. TECHNIQUE: Prior to the procedure, informed consent was obtained. The risks, benefits, and alternatives were e xplained to the patient or the patient's family, including but not limited to bleeding, infection, p ain, visceral or vascular damage, shock, pneumothorax, chest tube placement, air embolism, and . The patient or the patient's family understood the risks and the alternatives and wished to proce ed with the study. Informed written consent was obtained. A procedural pause was performed. The patient's name, date of , and procedure to be performed were verified. Ultrasound of the right hemithorax was performed in the axial and sagittal planes. A right pleural e ffusion is noted. Utilizing ultrasound guidance, optimal location for entry to the pleural cavity wa s ascertained. The overlying skin was prepped and draped in the usual sterile fashion. Approximate ly 10 ml of 1% Xylocaine was injected locally for pain control. Using ultrasound guidance, a 5-Fren Yueh catheter was introduced into the right pleural space without difficulty. Fluid was aspirated . COMPARISON: Chest x-ray done earlier the same day. FINDINGS: Initial ultrasound demonstrates fluid in the right pleural space. Approximately 0.925 liters of ser ous fluid was aspirated and sent to the laboratory. IMPRESSION: 1. Satisfactory ultrasound-guided right thoracentesis. RPTAT: QQ .Corey Clark MD, Date Time Electronically viewed and signed by .Corey Clark MD, on 11/15/2016 17:29 .R/
--- NOTE | 2016-11-15 17:31 | RADRPT ---
PROCEDURE: XR Chest. CLINICAL INDICATION: Shortness of breath. Post right thoracentesis. TECHNIQUE: Single frontal view. COMPARISON: Prior study done earlier the same day. FINDINGS: The right lung is now clear. There is left basilar atelectasis, unchanged. The lungs are now other h[place] clear. Surgical clips are present in the right axilla and left axilla. The heart is enlarged. Previously noted right pleural effusion is no longer present. There is moderate left pleural effusi on. There is no pneumothorax. IMPRESSION: 1. No pneumothorax following right thoracentesis. RPTAT: QQ .Corey Clark MD, MD Date Time Electronically viewed and signed by .Corey Clark MD, MD on 11/15/2016 17:31 .R/
[2016-11-15 19:06] LABS: FLUID TYPE THORACENTHESIS
[2016-11-15 19:07] LABS: FLUID APPEARANCE SLIGHTLY CLOUDY; FLUID RBC EST 1+; FLUID WBC'S 138 /cmm
[2016-11-15 19:19] LABS: FLUID LYMPHOCYTES 88 %; FLUID NEUTROPHILS 12 %
[2016-11-15 19:27] LABS: FLUID LD 170 U/L; FLUID TYPE THORACENTESIS FLUID
[2016-11-15 19:28] LABS: FLUID TOTAL PROTEIN 2.8 g/dl
[2016-11-15 19:29] LABS: FLUID GLUCOSE 97 mg/dl; FLUID TYPE THORACENTESIS FLUID
[2016-11-15] MEDS: ATORVASTATIN 10 MG TAB PO SCH (20:57)
--- NOTE | 2016-11-15 22:25 | CONS ---
Date/Time of Note Date/Time of Note DATE: 11/15/16 TIME: 22:20 Assessment/Plan Assessment/Plan Chief Complaint/Hosp Course # Fluid overload- bilateral pleural effusion + ble edema. has normal lvef on echo, small effusion. patient failed outpatient diuresis/mgmt. picture is consistent with acute on chronic diastolic heart failure. thoracentesis today with removal of 925cc, transudative. - pt improving, no with thoracentesis as well. ok to hold diuretic tomorrow given contraction alkalosis. - strict i/o - follow K/Mag and supplement as needed # pericardial effusion- small anterior on subcostal view on echo, similar to slightly decreased from 2016 echo no e/o hemodynamic significance. - f/u echo periodically as outpt # afib- chronic, rate controlled - hold bb given alberto - hold digoxin given elevated level, recheck level - restart coumadin goal inr 2-3 post thoracentesis, can start without bridge # HTN - cont home meds - additional agent as needed # breast CA hx - oncology following, plueral fluid transudative. Problems: Consultation Date/Type/Reason Admit Date/Time Nov 14, 2016 at 11:05 Type of Consultation: Cardiology Referring Provider: CATARINO RAMOS MD 24 HR Interval Summary Free Text/Dictation no acute events. pt seen this am. denies any cp, breathing improved. off o2, not ambulating to bathroom. denies palp, dizziness, fainting, n/v. Tele reviewed: afib with periods of alberto to upper 30s. Detailed Summary Eyes: no complaints Respiratory: shortness of breath Cardiovascular: no complaints Gastrointestinal: no complaints Exam/Review of Systems Vital Signs Vitals Vital Signs Date Time Temp Pulse Resp B/P Pulse Ox O2 Delivery O2 Flow Rate FiO2 11/15/16 20:29 60 11/15/16 19:03 97.4 16 110/56 95 11/13/16 11:14 Nasal Cannula 2.0 Intake and Output 11/14/16 11/14/16 11/15/16 14:59 22:59 06:59 Intake Total 756 ml 300 ml Output Total 800 ml 700 ml Balance -44 ml -400 ml Exam Constitutional: alert, oriented Psych: no complaints Head: normocephalic Eyes: EOMI, nl conjunctiva, nl lids ENMT: nl external ears & nose, nl nasal mucosa & septum Respiratory: other (decrease bs bilatearl base) Cardiovascular: irregular rhythm, nl pulses, systolic murmur Gastrointestinal: non-tender, soft Musculoskeletal: swelling (mild ble edema only in ankles) Extremities: normal pulses Neurological: SQL BI 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 II-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 intact, nl mental status, nl speech Results Result Diagram: 11/15/16 0545 11/15/16 0545 Results 24 hrs Laboratory Tests Test 11/15/16 05:45 11/15/16 16:20 Anion Gap 9 Basophils # 0.0 Basophils % 0.7 Blood Urea Nitrogen 19 Calcium Level 8.4 Carbon Dioxide Level 36 H Chloride Level 96 L Creatinine 0.78 Eosinophils # 0.1 Eosinophils % 2.1 Glucose Level 85 Hematocrit 40.0 Hemoglobin 13.6 INR International Normalized Ratio 1.25 Lymphocytes # 0.6 L Lymphocytes % 8.6 L Magnesium Level 1.9 Mean Corpuscular Hemoglobin 31.9 Mean Corpuscular Hemoglobin Concent 33.9 Mean Corpuscular Volume 94.1 Mean Platelet Volume 9.4 Monocytes # 1.0 H Monocytes % 15.9 H Neutrophils # 4.8 Neutrophils % 72.7 Nucleated Red Blood Cells # 0.0 Nucleated Red Blood Cells % 0.0 Phosphorus Level 3.2 Platelet Count 186 Potassium Level 3.9 Prothrombin Time 15.8 #H Prothrombin Time Ratio 1.2 Red Blood Count 4.25 Red Cell Distribution Width 13.7 Sodium Level 137 White Blood Count 6.6 Body Fluid Appearance SLIGHTLY CLOUDY Body Fluid Color YELLOW Body Fluid Glucose 97 Body Fluid Lactate Dehydrogenase 170 Body Fluid Lymphocytes (%) 88 Body Fluid Neutrophils % 12 Body Fluid RBC 1+ Body Fluid Total Protein 2.8 Body Fluid Type THORACENTESIS FLUID Body Fluid Volume 950.0 Body Fluid WBC 138 Medications Medications Current Medications Metoprolol Succinate (Toprol Xl) 25 mg DAILY PO Last administered on 11/14/16 10:24; Admin Dose 25 MG; Start 11/13/16 at 09:00; Status Future Hold Ondansetron HCl (Zofran Inj) 4 mg Q6H PRN IV NAUSEA AND/OR VOMITING; Start at 20:30 Acetaminophen (Tylenol Tab) 650 mg Q6H PRN PO PAIN LEVEL 1-3 OR FEVER; Start at 20:30 Famotidine (Pepcid) 20 mg DAILY PO Last administered on 11/15/16 09:01; Admin Dose 20 MG; Start 11/12/16 at 21:00 Atorvastatin Calcium (Lipitor) 10 mg DAILY@21 PO Last administered on 20:57; Admin Dose 10 MG; Start 11/12/16 at 21:00 Clonidine (Catapres) 0.1 mg Q6 PO Last administered on 11/15/16 06:09; Admin Dose 0.1 MG; Start 11/13/16 at 12:00 Spironolactone (Aldactone) 25 mg DAILY PO Last administered on 11/15/16 09:01 ; Admin Dose 25 MG; Start 11/14/16 at 09:00 Potassium Chloride (Potassium Chloride Pwd/Soln) 20 meq TID PO Last administered on 11/15/16 20:57; Admin Dose 20 MEQ; Start 11/14/16 at 11:00 Procedures Procedures cxr images reviewd ibilateral effusions EVE DELGADO Nov 15, 2016 22:25
[2016-11-16] VITALS (11 sets, daily range): BP systolic 114–146; BP diastolic 58–77; PULSE 55–84; RESP 18–20
--- NOTE | 2016-11-16 06:18 | CONS ---
Date/Time of Note Date/Time of Note DATE: 11/16/16 TIME: 06:10 Assessment/Plan Assessment/Plan Chief Complaint/Hosp Course 1) CHF her symptoms have improved since admission although not completely resolved pleural effusion is c/w transudative fluid no constitutional symptoms to suggest infection WBC in serum and pleural fluid are not c/w infection either continue off antibiotics at this time 2) a-fib with rate controlled 3) hx of breast CA, pleural effusion is benign looking Problems: Consultation Date/Type/Reason Admit Date/Time Nov 14, 2016 at 11:05 Date of Consultation: Nov 16, 2016 Type of Consultation: ID Hx of Present Illness 86yo WF admitted due to progressive SOB over a month and one day of upper abd pain with N, V The N, V has resolved, no current abd pain or diarrhea She states her breathing improved soon after her admission. She denies F, C, NS, sore throat. She has a runny nose in the morning for the last 2 months. No dysuria but she urinates less often then before. No muscle aches, joint pains, rashes No recent travel or sick contacts. Eyes: no complaints ENT: no complaints Respiratory: shortness of breath Cardiovascular: no complaints Gastrointestinal: no complaints Genitourinary: no complaints Musculoskeletal: No back pain Psychological: no complaints Past Medical History HTN, a-fib, hyperlipidemia, Vit D def, breast CA, hypothyroidism Past Surgical History appy, L mastectomy Social History Smoking Status: Never smoker Exam/Review of Systems Vital Signs Vitals Vital Signs Date Time Temp Pulse Resp B/P Pulse Ox O2 Delivery O2 Flow Rate FiO2 11/16/16 04:21 55 11/16/16 00:41 97.6 18 115/58 96 11/13/16 11:14 Nasal Cannula 2.0 Intake and Output 11/15/16 11/15/16 11/16/16 15:00 23:00 07:00 Intake Total 750 ml Balance 750 ml Exam Constitutional: alert, oriented Head: normocephalic Eyes: nl conjunctiva, nl sclera ENMT: mucosa pink and moist Neck: supple Respiratory: clear to auscultation, other (slight decreased BS at L base) Cardiovascular: regular rate and rhythm Gastrointestinal: non-tender, soft Extremities: other (no edema) Neurological: other (moves all extremities) Results Result Diagram: 11/15/16 0545 11/15/16 0545 Results 24 hrs Laboratory Tests Test 11/15/16 16:20 Body Fluid Appearance SLIGHTLY CLOUDY Body Fluid Color YELLOW Body Fluid Glucose 97 Body Fluid Lactate Dehydrogenase 170 Body Fluid Lymphocytes (%) 88 Body Fluid Neutrophils % 12 Body Fluid RBC 1+ Body Fluid Total Protein 2.8 Body Fluid Type THORACENTESIS FLUID Body Fluid Volume 950.0 Body Fluid WBC 138 Medications Medications Current Medications Metoprolol Succinate (Toprol Xl) 25 mg DAILY PO Last administered on 11/14/16 10:24; Admin Dose 25 MG; Start 11/13/16 at 09:00; Status Future Hold Ondansetron HCl (Zofran Inj) 4 mg Q6H PRN IV NAUSEA AND/OR VOMITING; Start at 20:30 Acetaminophen (Tylenol Tab) 650 mg Q6H PRN PO PAIN LEVEL 1-3 OR FEVER; Start at 20:30 Famotidine (Pepcid) 20 mg DAILY PO Last administered on 11/15/16 09:01; Admin Dose 20 MG; Start 11/12/16 at 21:00 Atorvastatin Calcium (Lipitor) 10 mg DAILY@21 PO Last administered on 20:57; Admin Dose 10 MG; Start 11/12/16 at 21:00 Clonidine (Catapres) 0.1 mg Q6 PO Last administered on 11/15/16 06:09; Admin Dose 0.1 MG; Start 11/13/16 at 12:00 Spironolactone (Aldactone) 25 mg DAILY PO Last administered on 11/15/16 09:01 ; Admin Dose 25 MG; Start 11/14/16 at 09:00 Potassium Chloride (Potassium Chloride Pwd/Soln) 20 meq TID PO Last administered on 11/15/16 20:57; Admin Dose 20 MEQ; Start 11/14/16 at 11:00 JOEY GUDINO MD Nov 16, 2016 06:18
--- NOTE | 2016-11-16 06:25 | CONS ---
Date/Time of Note Date/Time of Note DATE: 11/16/16 TIME: 06:24 Assessment/Plan Assessment/Plan Chief Complaint/Hosp Course 1) CHF her symptoms have improved since admission although not completely resolved pleural effusion is c/w transudative fluid no constitutional symptoms to suggest infection WBC in serum and pleural fluid are not c/w infection either continue off antibiotics at this time 2) a-fib with rate controlled 3) hx of breast CA, pleural effusion is benign looking 4) GPC in urine with mixed organisms no pyuria or symptoms, no need to treat Problems: Consultation Date/Type/Reason Admit Date/Time Nov 14, 2016 at 11:05 Initial Consult Date 11/16/16 Type of Consultation: ID Referring Provider: CATARINO RAMOS MD Exam/Review of Systems Vital Signs Vitals Vital Signs Date Time Temp Pulse Resp B/P Pulse Ox O2 Delivery O2 Flow Rate FiO2 11/16/16 04:21 55 11/16/16 00:41 97.6 18 115/58 96 11/13/16 11:14 Nasal Cannula 2.0 Intake and Output 11/15/16 11/15/16 11/16/16 15:00 23:00 07:00 Intake Total 750 ml Balance 750 ml Results Result Diagram: 11/15/16 0545 11/15/16 0545 Results 24 hrs Laboratory Tests Test 11/15/16 16:20 Body Fluid Appearance SLIGHTLY CLOUDY Body Fluid Color YELLOW Body Fluid Glucose 97 Body Fluid Lactate Dehydrogenase 170 Body Fluid Lymphocytes (%) 88 Body Fluid Neutrophils % 12 Body Fluid RBC 1+ Body Fluid Total Protein 2.8 Body Fluid Type THORACENTESIS FLUID Body Fluid Volume 950.0 Body Fluid WBC 138 Medications Medications Current Medications Metoprolol Succinate (Toprol Xl) 25 mg DAILY PO Last administered on 11/14/16 10:24; Admin Dose 25 MG; Start 11/13/16 at 09:00; Status Future Hold Ondansetron HCl (Zofran Inj) 4 mg Q6H PRN IV NAUSEA AND/OR VOMITING; Start at 20:30 Acetaminophen (Tylenol Tab) 650 mg Q6H PRN PO PAIN LEVEL 1-3 OR FEVER; Start at 20:30 Famotidine (Pepcid) 20 mg DAILY PO Last administered on 11/15/16 09:01; Admin Dose 20 MG; Start 11/12/16 at 21:00 Atorvastatin Calcium (Lipitor) 10 mg DAILY@21 PO Last administered on 20:57; Admin Dose 10 MG; Start 11/12/16 at 21:00 Clonidine (Catapres) 0.1 mg Q6 PO Last administered on 11/15/16 06:09; Admin Dose 0.1 MG; Start 11/13/16 at 12:00 Spironolactone (Aldactone) 25 mg DAILY PO Last administered on 11/15/16 09:01 ; Admin Dose 25 MG; Start 11/14/16 at 09:00 Potassium Chloride (Potassium Chloride Pwd/Soln) 20 meq TID PO Last administered on 11/15/16 20:57; Admin Dose 20 MEQ; Start 11/14/16 at 11:00 JOEY GUDINO MD Nov 16, 2016 06:24
[2016-11-16] MEDS: LEVOTHYROXINE 50 MCG TAB PO SCH (06:34)
[2016-11-16 06:53] LABS: BASOPHILS % 0.4 % (0.0-2.0); EOSINOPHILS # 0.1 10^3/ul (0.0-0.5); EOSINOPHILS % 1.6 % (0.0-7.0); HEMATOCRIT 38.6 % (37.0-47.0); HEMOGLOBIN 13.1 g/dl (12.0-16.0); LYMPHOCYTES # 0.6 10^3/ul (0.8-2.9); LYMPHOCYTES % 9.7 % (15.0-51.0); MEAN CORPUSCULAR HEMOGLOBIN 32.4 pg (29.0-33.0); MEAN CORPUSCULAR HGB CONC 34.1 g/dl (32.0-37.0); MEAN CORPUSCULAR VOLUME 94.9 fl (82.0-101.0); MEAN PLATELET VOLUME 9.4 fl (7.4-10.4); MONOCYTE # 0.9 10^3/ul (0.3-0.9); MONOCYTES % 13.5 % (0.0-11.0); NEUTROPHIL # 4.8 10^3/ul (1.6-7.5); NEUTROPHILS % 74.8 % (39.0-77.0); PLATELET COUNT 179 10^3/UL (140-440); RED BLOOD COUNT 4.06 10^6/ul (4.20-5.40); RED CELL DISTRIBUTION WIDTH 13.5 % (11.5-14.5); UNCORRECTED WBC 6.4 10^3/ul (4.8-10.8); WHITE BLOOD COUNT 6.4 10^3/ul (4.8-10.8)
[2016-11-16 06:57] LABS: INR 1.16; PROTIME 14.9 Sec (12.2-14.2); PT RATIO 1.2
[2016-11-16 07:14] LABS: CONDITION 1
[2016-11-16 07:15] LABS: POTASSIUM 4.5 mmol/L (3.5-5.1)
[2016-11-16 07:18] LABS: CALCIUM 8.5 mg/dl (8.4-10.2); CREATININE 0.8 mg/dl (0.44-1.00)
[2016-11-16 07:19] LABS: MAGNESIUM 1.7 mg/dl (1.7-2.5)
[2016-11-16] MEDS ORDERED: WARFARIN 2 MG TAB PO ONE (07:30)
--- NOTE | 2016-11-16 07:35 | PN ---
Date/Time of Note Date/Time of Note DATE: 11/16/16 TIME: 07:33 Assessment/Plan VTE Prophylaxis VTE Prophylaxis Intervention: other Lines/Catheters IV Catheter Type (from Nrs): Saline Lock Urinary Cath still in place: No Assessment/Plan Assessment/Plan 1. CHF is resolving, iv lasix changed to po, labs pending 2. Pleural effusion is sec to 1 (id eval noted) 3. A fib ventric response noted (HR as low as 40+ during the day), will reduce beta dav 4. I anticipate pt can be dc tomm, she does not want to go to a ecf Subjective 24 Hr Interval Summary Respiratory: shortness of breath (is better and denies cough or wheezing) Cardiovascular: No chest pain Gastrointestinal: no complaints, pain Genitourinary: no complaints Exam/Review of Systems Vital Signs Vitals Vital Signs Date Time Temp Pulse Resp B/P Pulse Ox O2 Delivery O2 Flow Rate FiO2 11/16/16 07:12 97.6 74 20 114/77 95 11/13/16 11:14 Nasal Cannula 2.0 Intake and Output 11/15/16 11/15/16 11/16/16 15:00 23:00 07:00 Intake Total 750 ml 300 ml Output Total 150 ml Balance 750 ml 150 ml Exam Neck: No jvd Respiratory: diminished breath sounds (without rales or rhonchi) Cardiovascular: irregular rhythm Gastrointestinal: soft Extremities: edema (1+ feet) Results Result Diagram: 11/16/16 0550 11/16/16 0550 Results 24 hrs Laboratory Tests Test 11/15/16 16:20 11/16/16 05:50 Body Fluid Appearance SLIGHTLY CLOUDY Body Fluid Color YELLOW Body Fluid Glucose 97 Body Fluid Lactate Dehydrogenase 170 Body Fluid Lymphocytes (%) 88 Body Fluid Neutrophils % 12 Body Fluid RBC 1+ Body Fluid Total Protein 2.8 Body Fluid Type THORACENTESIS FLUID Body Fluid Volume 950.0 Body Fluid WBC 138 Anion Gap 11 Basophils # 0.0 Basophils % 0.4 Blood Urea Nitrogen 19 Calcium Level 8.5 Carbon Dioxide Level 34 H Chloride Level 94 L Creatinine 0.80 Digoxin Level 0.8 L Eosinophils # 0.1 Eosinophils % 1.6 Glucose Level 82 Hematocrit 38.6 Hemoglobin 13.1 INR International Normalized Ratio 1.16 Lymphocytes # 0.6 L Lymphocytes % 9.7 L Magnesium Level 1.7 Mean Corpuscular Hemoglobin 32.4 Mean Corpuscular Hemoglobin Concent 34.1 Mean Corpuscular Volume 94.9 Mean Platelet Volume 9.4 Monocytes # 0.9 Monocytes % 13.5 H Neutrophils # 4.8 Neutrophils % 74.8 Nucleated Red Blood Cells # 0.0 Nucleated Red Blood Cells % 0.0 Platelet Count 179 Potassium Level 4.5 Prothrombin Time 14.9 H Prothrombin Time Ratio 1.2 Red Blood Count 4.06 L Red Cell Distribution Width 13.5 Sodium Level 134 L White Blood Count 6.4 Medications Medications Current Medications Ondansetron HCl (Zofran Inj) 4 mg Q6H PRN IV NAUSEA AND/OR VOMITING; Start at 20:30 Acetaminophen (Tylenol Tab) 650 mg Q6H PRN PO PAIN LEVEL 1-3 OR FEVER; Start at 20:30 Famotidine (Pepcid) 20 mg DAILY PO Last administered on 11/15/16 09:01; Admin Dose 20 MG; Start 11/12/16 at 21:00 Atorvastatin Calcium (Lipitor) 10 mg DAILY@21 PO Last administered on 20:57; Admin Dose 10 MG; Start 11/12/16 at 21:00 Spironolactone (Aldactone) 25 mg DAILY PO Last administered on 11/15/16 09:01 ; Admin Dose 25 MG; Start 11/14/16 at 09:00 Potassium Chloride (Potassium Chloride Pwd/Soln) 20 meq TID PO Last administered on 11/15/16 20:57; Admin Dose 20 MEQ; Start 11/14/16 at 11:00 Metoprolol Succinate (Toprol Xl) 12.5 mg DAILY PO ; Start 11/16/16 at 09:00; Status UNV Warfarin Sodium (Coumadin) 2 mg NOW ONCE PO ; Start 11/16/16 at 07:30; Stop at 07:31; Status UNV CATARINO RAMOS MD Nov 16, 2016 07:35
--- NOTE | 2016-11-16 08:46 | RADRPT ---
PROCEDURE: XR Chest 1 view. CLINICAL INDICATION: Shortness of breath TECHNIQUE: AP views of the chest were obtained. COMPARISON: November 15, 2016 FINDINGS: The heart is large. Calcified atherosclerosis is noted in the aorta. The lungs are hyperexpanded. Retrocardiac opacity is unchanged. Calcified granulomas disease in the left lower lobe is stable. Th e osseous structures are stable. Surgical clips are identified in the bilateral axilla. IMPRESSION: Cardiomegaly with calcified atherosclerosis in the aorta. Hyperexpanded lungs. Stable retrocardiac opacity that may reflect left lower lobe atelectasis or infiltrate combined with small pleural effusion. Stable calcified granulomatous disease in the left lower lobe. RPTAT: AA .Marcelino Jaimes MD, MD Date Time Electronically viewed and signed by .Marcelino Jaimes MD, on 11/16/2016 08:46 .P/
[2016-11-16] MEDS: FAMOTIDINE 20 MG TAB PO SCH (08:53)
[2016-11-16] MEDS: SPIRONOLACTONE 25 MG TAB PO SCH (08:53)
[2016-11-16] MEDS: METOPROLOL (XL) 25 MG TAB PO SCH (08:56)
[2016-11-16] MEDS: FUROSEMIDE 40 MG TAB PO SCH ×2 (08:57→17:28)
[2016-11-16] MEDS: POTASSIUM CHLORIDE 20 MEQ POWDER FOR ORAL SOLN PO SCH ×3 (08:57→21:10)
--- NOTE | 2016-11-16 09:01 | CONS ---
Date/Time of Note Date/Time of Note DATE: 11/16/16 TIME: 08:56 Assessment/Plan Assessment/Plan Chief Complaint/Hosp Course # Fluid overload- bilateral pleural effusion + ble edema. has normal lvef on echo, small effusion. patient failed outpatient diuresis/mgmt. picture is consistent with acute on chronic diastolic heart failure. thoracentesis today with removal of 925cc, transudative. - pt improved w diuresis s/p thoracentesis as well. - cr/hco3 stable. ok to cont po lasix to keep slight negative - follow K/Mag and supplement as needed # pericardial effusion- small anterior on subcostal view on echo, similar to slightly decreased from 2016 echo no e/o hemodynamic significance. - f/u echo periodically as outpt # afib- chronic, rate controlled - low dose bb, reduced given alberto - dig level 0.8, can restart tomorrow at low dose 0.125mcg daily - restart coumadin goal inr 2-3 post thoracentesis, can start without bridge # HTN - controlled on current medication # breast CA hx - oncology following, pleural fluid transudative. Problems: Consultation Date/Type/Reason Admit Date/Time Nov 14, 2016 at 11:05 Type of Consultation: cardiology Referring Provider: CATARINO RAMOS MD 24 HR Interval Summary Free Text/Dictation no acute events. states sob/swelling improved. no cp, dizziness, palp. tele tracings reviewed. hrs mostly 60s-80s afib, lowest 52 Constitutional: improved Detailed Summary Eyes: no complaints ENT: no complaints Cardiovascular: no complaints Gastrointestinal: no complaints Exam/Review of Systems Vital Signs Vitals Vital Signs Date Time Temp Pulse Resp B/P Pulse Ox O2 Delivery O2 Flow Rate FiO2 11/16/16 08:20 66 11/16/16 07:12 97.6 20 114/77 95 11/13/16 11:14 Nasal Cannula 2.0 Intake and Output 11/15/16 11/15/16 11/16/16 15:00 23:00 07:00 Intake Total 750 ml 300 ml Output Total 150 ml Balance 750 ml 150 ml Exam Constitutional: alert, oriented Psych: no complaints Head: normocephalic Eyes: EOMI, nl conjunctiva, nl lids ENMT: nl external ears & nose, nl nasal mucosa & septum Respiratory: improved bs in bilateral bases Cardiovascular: irregular rhythm, nl pulses, systolic murmur Gastrointestinal: non-tender, soft Musculoskeletal: minimal edema Extremities: normal pulses Neurological: BAND SEWER II-XII intact, nl mental status, nl speech Results Result Diagram: 11/16/16 0550 11/16/16 0550 Results 24 hrs Laboratory Tests Test 11/15/16 16:20 11/16/16 05:50 Body Fluid Appearance SLIGHTLY CLOUDY Body Fluid Color YELLOW Body Fluid Glucose 97 Body Fluid Lactate Dehydrogenase 170 Body Fluid Lymphocytes (%) 88 Body Fluid Neutrophils % 12 Body Fluid RBC 1+ Body Fluid Total Protein 2.8 Body Fluid Type THORACENTESIS FLUID Body Fluid Volume 950.0 Body Fluid WBC 138 Anion Gap 11 Basophils # 0.0 Basophils % 0.4 Blood Urea Nitrogen 19 Calcium Level 8.5 Carbon Dioxide Level 34 H Chloride Level 94 L Creatinine 0.80 Digoxin Level 0.8 L Eosinophils # 0.1 Eosinophils % 1.6 Glucose Level 82 Hematocrit 38.6 Hemoglobin 13.1 INR International Normalized Ratio 1.16 Lymphocytes # 0.6 L Lymphocytes % 9.7 L Magnesium Level 1.7 Mean Corpuscular Hemoglobin 32.4 Mean Corpuscular Hemoglobin Concent 34.1 Mean Corpuscular Volume 94.9 Mean Platelet Volume 9.4 Monocytes # 0.9 Monocytes % 13.5 H Neutrophils # 4.8 Neutrophils % 74.8 Nucleated Red Blood Cells # 0.0 Nucleated Red Blood Cells % 0.0 Platelet Count 179 Potassium Level 4.5 Prothrombin Time 14.9 H Prothrombin Time Ratio 1.2 Red Blood Count 4.06 L Red Cell Distribution Width 13.5 Sodium Level 134 L White Blood Count 6.4 Medications Medications Current Medications Ondansetron HCl (Zofran Inj) 4 mg Q6H PRN IV NAUSEA AND/OR VOMITING; Start at 20:30 Acetaminophen (Tylenol Tab) 650 mg Q6H PRN PO PAIN LEVEL 1-3 OR FEVER; Start at 20:30 Famotidine (Pepcid) 20 mg DAILY PO Last administered on 11/15/16 09:01; Admin Dose 20 MG; Start 11/12/16 at 21:00 Atorvastatin Calcium (Lipitor) 10 mg DAILY@21 PO Last administered on 20:57; Admin Dose 10 MG; Start 11/12/16 at 21:00 Spironolactone (Aldactone) 25 mg DAILY PO Last administered on 11/15/16 09:01 ; Admin Dose 25 MG; Start 11/14/16 at 09:00 Potassium Chloride (Potassium Chloride Pwd/Soln) 20 meq TID PO Last administered on 11/15/16 20:57; Admin Dose 20 MEQ; Start 11/14/16 at 11:00 Metoprolol Succinate (Toprol Xl) 12.5 mg DAILY PO ; Start 11/16/16 at 09:00 Procedures Procedures cxr reviewed images small l pleural effusion, r side improved EVE DELGADO Nov 16, 2016 09:01
--- NOTE | 2016-11-16 11:42 | CONS ---
DATE OF ADMISSION: 11/14/2016 DATE OF CONSULTATION: 11/16/2016 TYPE OF CONSULTATION: Medical oncology progress note. HISTORY OF PRESENT ILLNESS: The patient is feeling well. She states she is less short of breath. She has no complaints of pleuritic chest pain. The patient did undergo an ultrasound-guided thoracentesis on November 15 which yielded 925 mL of flu id. PHYSICAL EXAMINATION: VITAL SIGNS: Temperature 97.6, pulse 74 per minute and regular, respirations 18, blood pressure 114 /77. Oxygen pulse oximetry is 95% on room air. SKIN: No ecchymosis, no petechiae or rashes. HEENT: Normocephalic. No evidence of trauma. Pupils are equal, round and reactive to light and ac commodation. No scleral icterus. NECK: Supple, no jugular venous distention or thyroid enlargement. CHEST: There is decreased breath sounds in the left base but no rubs, wheezes or rhonchi. HEART: Regular sinus rhythm, no S3, S4 or murmurs. NODES: No palpable lymphadenopathy. ABDOMEN: Soft, no masses or ascites. Pleural fluid revealed a total white count of 138, of which 12% were neutrophils and 88% were lympho cytes. The fluid glucose was 97, total protein was 2.8. The fluid cytology is pending at this time . CEA is 2.2 and CA 27-29 is 26. ASSESSMENT: 1. Pleural effusion, probably related to cardiac issues. 2. History of bilateral breast carcinoma. PLAN: Patient will not have any further intervention regarding patient's history of breast carcinoma . Will await fluid cytology, but I expect this to be negative. Dictated By: LAYLA MUÑOZ MD, SR/NTS Conf#: [id number] DID#: [id number]
--- NOTE | 2016-11-16 16:30 | CONS ---
Date/Time of Note Date/Time of Note DATE: 11/16/16 TIME: 16:28 Consult Date/Type/Reason Admit Date/Time Nov 14, 2016 at 11:05 Type of Consultation: Pulmonary Ordering Provider: CATARINO RAMOS MD Subjective Patient stable for thoracentesis she had approximately 1 L removed from the right lung chest x-ray shows significant improvement in lung aeration She reports less shortness of breath Objective Vital Signs Date Time Temp Pulse Resp B/P Pulse Ox O2 Delivery O2 Flow Rate FiO2 11/16/16 16:13 69 11/16/16 15:19 98.2 20 146/65 97 11/13/16 11:14 Nasal Cannula 2.0 Intake and Output 11/15/16 11/15/16 11/16/16 15:00 23:00 07:00 Intake Total 750 ml 300 ml Output Total 150 ml Balance 750 ml 150 ml PHYSICAL EXAMINATION: GENERAL: Thin lady, awake, alert, oriented, comfortable at rest, talking in full and complete sentences. VITAL SIGNS: As above NECK: Supple, no JVD or lymphadenopathy. CARDIAC: S1, S2, no added sounds or murmurs. CHEST: Diminished air entry bilaterally. ABDOMEN: Soft, nontender. No guarding or rebound. EXTREMITIES: No cyanosis, clubbing or edema. NEUROLOGIC: Generalized weakness, but no focal deficits. Results/Medications Result Diagram: 11/16/16 0550 11/16/16 0550 Results 24 hrs Laboratory Tests Test 11/16/16 05:50 Anion Gap 11 Basophils # 0.0 Basophils % 0.4 Blood Urea Nitrogen 19 Calcium Level 8.5 Carbon Dioxide Level 34 H Chloride Level 94 L Creatinine 0.80 Digoxin Level 0.8 L Eosinophils # 0.1 Eosinophils % 1.6 Glucose Level 82 Hematocrit 38.6 Hemoglobin 13.1 INR International Normalized Ratio 1.16 Lymphocytes # 0.6 L Lymphocytes % 9.7 L Magnesium Level 1.7 Mean Corpuscular Hemoglobin 32.4 Mean Corpuscular Hemoglobin Concent 34.1 Mean Corpuscular Volume 94.9 Mean Platelet Volume 9.4 Monocytes # 0.9 Monocytes % 13.5 H Neutrophils # 4.8 Neutrophils % 74.8 Nucleated Red Blood Cells # 0.0 Nucleated Red Blood Cells % 0.0 Platelet Count 179 Potassium Level 4.5 Prothrombin Time 14.9 H Prothrombin Time Ratio 1.2 Red Blood Count 4.06 L Red Cell Distribution Width 13.5 Sodium Level 134 L White Blood Count 6.4 Medications Current Medications Ondansetron HCl (Zofran Inj) 4 mg Q6H PRN IV NAUSEA AND/OR VOMITING; Start at 20:30 Acetaminophen (Tylenol Tab) 650 mg Q6H PRN PO PAIN LEVEL 1-3 OR FEVER; Start at 20:30 Famotidine (Pepcid) 20 mg DAILY PO Last administered on 11/16/16 08:53; Admin Dose 20 MG; Start 11/12/16 at 21:00 Atorvastatin Calcium (Lipitor) 10 mg DAILY@21 PO Last administered on 20:57; Admin Dose 10 MG; Start 11/12/16 at 21:00 Spironolactone (Aldactone) 25 mg DAILY PO Last administered on 11/16/16 08:53 ; Admin Dose 25 MG; Start 11/14/16 at 09:00 Potassium Chloride (Potassium Chloride Pwd/Soln) 20 meq TID PO Last administered on 11/16/16 13:41; Admin Dose 20 MEQ; Start 11/14/16 at 11:00 Metoprolol Succinate (Toprol Xl) 12.5 mg DAILY PO Last administered on 08:56; Admin Dose 12.5 MG; Start 11/16/16 at 09:00 Assessment/Plan Chief Complaint/Hosp Course IMPRESSION AND PLAN: 1. Dyspnea, likely secondary to congestive cardiac failure. 2. History of breast cancer. 3. Possible recent gastroenteritis. 4. Bilateral pleural effusions possibly secondary to heart failure, right greater than left. Status post thoracentesis right lung The patient will require: 1. Gentle diuresis. 2. Cardiology recommendations 3. Aspiration precautions. 4. DVT and GI prophylaxis. 5 Await pleural fluid studies Problems: TALIA PEDERSEN MD, [facility] Nov 16, 2016 16:30
[2016-11-16] MEDS ORDERED: VITAMIN A & D 5 GM OINT PACKET TOP ONE (21:08)
[2016-11-16] MEDS: ATORVASTATIN 10 MG TAB PO SCH (21:09)
[2016-11-17] VITALS (10 sets, daily range): BP systolic 112–157; BP diastolic 58–79; PULSE 65–75; RESP 17–19
[2016-11-17] MEDS: LEVOTHYROXINE 50 MCG TAB PO SCH (06:30)
[2016-11-17] MEDS: FUROSEMIDE 40 MG TAB PO SCH (06:30)
[2016-11-17 08:08] LABS: POTASSIUM 4.2 mmol/L (3.5-5.1)
[2016-11-17 08:10] LABS: CREATININE 0.78 mg/dl (0.44-1.00)
[2016-11-17 08:11] LABS: CALCIUM 8.6 mg/dl (8.4-10.2); PHOSPHORUS 3.9 mg/dl (2.5-4.9)
[2016-11-17 08:12] LABS: MAGNESIUM 1.5 mg/dl (1.7-2.5)
[2016-11-17] MEDS: SPIRONOLACTONE 25 MG TAB PO SCH (09:12)
[2016-11-17] MEDS: FAMOTIDINE 20 MG TAB PO SCH (09:12)
[2016-11-17] MEDS: METOPROLOL (XL) 25 MG TAB PO SCH (09:13)
[2016-11-17] MEDS: POTASSIUM CHLORIDE 20 MEQ POWDER FOR ORAL SOLN PO SCH ×2 (09:14→13:25)
--- NOTE | 2016-11-17 10:21 | CONS ---
Date/Time of Note Date/Time of Note DATE: 11/17/16 TIME: 10:17 Assessment/Plan Assessment/Plan Chief Complaint/Hosp Course # Fluid overload- bilateral pleural effusion + ble edema. has normal lvef on echo, small effusion. patient failed outpatient diuresis/mgmt. picture is consistent with acute on chronic diastolic heart failure. thoracentesis today with removal of 925cc, transudative. - pt improved w diuresis s/p thoracentesis as well. - cr/hco3 stable. ok to cont po lasix to keep slight negative - follow K/Mag and supplement as needed # pericardial effusion- small anterior on subcostal view on echo, similar to slightly decreased from 2016 echo no e/o hemodynamic significance. - f/u echo periodically as outpt # afib- chronic, rate controlled - low dose bb, reduced given alberto - restart digoxin, start at 0.125mg po q2d given elevated level at presentation. - restart Coumadin goal inr 2-3 post thoracentesis, can start without bridge # HTN - controlled on current medication # breast CA hx - oncology following, pleural fluid transudative. Problems: Consultation Date/Type/Reason Admit Date/Time Nov 14, 2016 at 11:05 Type of Consultation: cardiology Referring Provider: CATARINO RAMOS MD 24 HR Interval Summary Free Text/Dictation no acute events. pt states up to commode, not walking in hallway. no cp/sob. no dizziness, n/v. tolerating po tele tracing reviewed: afib, rate controlled, no events. Exam/Review of Systems Vital Signs Vitals Vital Signs Date Time Temp Pulse Resp B/P Pulse Ox O2 Delivery O2 Flow Rate FiO2 11/17/16 08:48 73 11/17/16 07:49 97.6 19 112/58 93 11/13/16 11:14 Nasal Cannula 2.0 Intake and Output 11/16/16 11/16/16 11/17/16 15:00 23:00 07:00 Intake Total 720 ml 150 ml Output Total 900 ml 500 ml Balance -180 ml -350 ml Exam Constitutional: alert, oriented Psych: no complaints Head: normocephalic Eyes: EOMI, nl conjunctiva, nl lids ENMT: nl external ears & nose, nl nasal mucosa & septum Respiratory: improved bs in bilateral bases Cardiovascular: irregular rhythm, nl pulses, systolic murmur Gastrointestinal: non-tender, soft Musculoskeletal: minimal edema Extremities: normal pulses Neurological: TELEVISION HOST II-XII intact, nl mental status, nl speech Results Result Diagram: 11/16/16 0550 11/17/16 0635 Results 24 hrs Laboratory Tests Test 11/17/16 06:35 Anion Gap 12 Blood Urea Nitrogen 20 Calcium Level 8.6 Carbon Dioxide Level 34 H Chloride Level 93 L Creatinine 0.78 Glucose Level 80 Magnesium Level 1.5 L Phosphorus Level 3.9 Potassium Level 4.2 Sodium Level 135 Medications Medications Current Medications Ondansetron HCl (Zofran Inj) 4 mg Q6H PRN IV NAUSEA AND/OR VOMITING; Start at 20:30 Acetaminophen (Tylenol Tab) 650 mg Q6H PRN PO PAIN LEVEL 1-3 OR FEVER; Start at 20:30 Famotidine (Pepcid) 20 mg DAILY PO Last administered on 11/17/16 09:12; Admin Dose 20 MG; Start 11/12/16 at 21:00 Atorvastatin Calcium (Lipitor) 10 mg DAILY@21 PO Last administered on 21:09; Admin Dose 10 MG; Start 11/12/16 at 21:00 Spironolactone (Aldactone) 25 mg DAILY PO Last administered on 11/17/16 09:12 ; Admin Dose 25 MG; Start 11/14/16 at 09:00 Potassium Chloride (Potassium Chloride Pwd/Soln) 20 meq TID PO Last administered on 11/17/16 09:14; Admin Dose 20 MEQ; Start 11/14/16 at 11:00 Metoprolol Succinate (Toprol Xl) 12.5 mg DAILY PO Last administered on 09:13; Admin Dose 12.5 MG; Start 11/16/16 at 09:00 Procedures Procedures cxr 11/16 images reviewed. LLL atelectasis/small effusion EVE DELGADO Nov 17, 2016 10:21
[2016-11-17] MEDS ORDERED: ATOR10TA65 PO (11:51)
[2016-11-17] MEDS ORDERED: SPIR25TA PO (11:51)
[2016-11-17] MEDS ORDERED: FURO40TA4 PO (11:51)
[2016-11-17] MEDS ORDERED: METO25TA7 PO (11:51)
[2016-11-17] MEDS ORDERED: WARF3TAB PO (11:51)
[2016-11-17] MEDS ORDERED: DIGO125T PO (11:51)
--- NOTE | 2016-11-17 11:52 | PDOCDIS ---
Discharge Instructions DIAGNOSIS Discharge Diagnosis: acute CHF CONDITION Patient Condition: Stable HOME CARE INSTRUCTIONS: Diet Instructions: 2gm NaSpecial Diet: LOW CHOLESTEROL ACTIVITY: Activity Restrictions: No Restrictions Slowly Increase Activity Avoid heavy lifting FOLLOW UP/APPOINTMENTS Appointments F/U Cardiology and PCP in 1-2 weeks CAMERON CHO MD Nov 17, 2016 11:52
--- NOTE | 2016-11-17 11:59 | DS ---
Date/Time of Note Date/Time of Note DATE: 11/17/16 TIME: 11:56 Discharge Summary Admission/Discharge Info Admit Date/Time Nov 14, 2016 at 11:05 Discharge Date/Time Final Diagnosis acute CHF Patient Condition: Stable Hospital Course Ms. Lowe is a 86 y.o. woman with h/o of chronic afib on anticoag and breast CA. pt with progressive mckeon and LE edema over last month, had been seen in clinic and thought to have diastolic heart failure. started on diuretics. She reports swelling in her legs, decreased; however, her shortness of breath, did not improve. She did have a CAT scan of the chest on 11/06/2016, which showed increased bilateral pleural effusions, right greater than left, and bibasilar infiltrates and/or atelectasis. It also showed mild cardiomegaly and pericardial effusion. Acute on Chronic Diastolic CHF with bilateral pleural effusion + ble edema. has normal lvef on echo, small effusion. patient failed outpatient diuresis/ mgmt. - s/p thoracentesis with removal of 925cc, transudative. - pt improved w diuresis s/p thoracentesis as well. - cr/hco3 stable. Cont PO lasix 40mg BID per Cardiology - cont aldactone 25mg daily - f/u Cardiology closely as outpatient Pericardial effusion- small anterior on subcostal view on echo, similar to slightly decreased from 2016 echo no e/o hemodynamic significance. - f/u echo periodically as outpt Afib- chronic, rate controlled - low dose bb, reduced given alberto (discharge on MTP XL 12.5mg daily) - restarted digoxin, start at 0.125mg po q2d given elevated level at presentation. - restarted Coumadin at 1.5mg daily, ok to start without bridge per Cardiology HTN - controlled on current medication Hx Breast Ca - pleural fluid transudative - seen by Oncology Home Meds Active Scripts Spironolactone* (Aldactone*) 25 Mg Tablet, 25 MG PO DAILY for 30 Days, #30 TAB Prov:CAMERON CHO MD 11/17/16 Metoprolol Succinate* (Toprol XL*) 25 Mg Tab.sr.24h, 12.5 MG PO DAILY for 30 Days, #30 Prov:CAMERON CHO MD 11/17/16 Furosemide* (Furosemide*) 40 Mg Tablet, 40 MG PO BID DIURETICS for 30 Days, #60 TAB Prov:CAMERON CHO MD 11/17/16 Digoxin* (Digitek*) 125 Mcg Tablet, 0.125 MG PO Q2D@13 for 30 Days, #30 TAB Prov:CAMERON CHO MD 11/17/16 Atorvastatin (Atorvastatin) 10 Mg Tablet, 10 MG PO DAILY@21 for 30 Days, #30 TAB Prov:CAMERON CHO MD 11/17/16 Warfarin Sodium* (Coumadin*) 3 Mg Tablet, 1.5 MG PO DAILY for 30 Days, #30 TAB Prov:CAMERON HCO MD 11/17/16 Reported Medications Famotidine* (Famotidine*) 20 Mg Tablet, 20 MG PO BID, #60 TAB 11/12/16 Lovastatin* (Altoprev*) 40 Mg Tab.sr.24h, 40 MG PO HS, TAB 03/26/16 Metoprolol Succinate* (Toprol XL*) 25 Mg Tab.sr.24h, 25 MG PO DAILY, #30 TAB 03/26/16 Levothyroxine Sodium* (Levoxyl*) 50 Mcg Tablet, 50 MCG PO BEFORE BREAKFAST, #30 TAB 03/26/16 Digoxin* (Digoxin*) 0.125 Mg Tab, 0.125 MG PO DAILY, #30 TAB 03/26/16 Discontinued Reported Medications Nifedipine* (Nifedipine ER*) 30 Mg Tablet.sa, 30 MG PO DAILY, TAB.SA 03/26/16 Follow-up Plan Cardiology in 1 week, PCP in 1-2 weeks. Pending Labs Laboratory Tests Test 11/17/16 06:35 Anion Gap 12 (8-16) Blood Urea Nitrogen 20mg/dl (7-20) Calcium Level 8.6mg/dl (8.4-10.2) Carbon Dioxide Level 34mmol/L (21-31) Chloride Level 93mmol/L (97-110) Creatinine 0.78mg/dl (0.44-1.00) Glucose Level 80mg/dl (70-220) Magnesium Level 1.5mg/dl (1.7-2.5) Phosphorus Level 3.9mg/dl (2.5-4.9) Potassium Level 4.2mmol/L (3.5-5.1) Sodium Level 135mmol/L (135-144) CAMERON CHO MD Nov 17, 2016 11:59
[2016-11-17] MEDS ORDERED: DIGOXIN 0.125 MG TAB PO SCH (13:00)
== END 2016-11-17 16:44 | disposition home health service (06) | DRG 292 ==
LOC: E/R 13:19 → TEL 17:26 → INTOOBSV 17:26 → OBSVTOIN 11-14 11:05 → TEL 11-16 11:18
PROVIDERS: ADMIT Internal Medicine; ATTEND Internal Medicine
PROC: 0W9B3ZX Drainage of Left Pleural Cavity, Percutaneous Approach, Diagnostic (ICD-10-PCS; principal; 2016-11-15)
DX: I50.33 Acute on chronic diastolic (congestive) heart failure (principal); J90 Pleural effusion, not elsewhere classified; R64 Cachexia; Z68.1 Body mass index [BMI] 19.9 or less, adult; I48.91 Unspecified atrial fibrillation; E83.42 Hypomagnesemia; Z85.3 Personal history of malignant neoplasm of breast; E03.9 Hypothyroidism, unspecified; E78.5 Hyperlipidemia, unspecified; Z79.01 Long term (current) use of anticoagulants; I10 Essential (primary) hypertension; K52.9 Noninfective gastroenteritis and colitis, unspecified
CPT/HCPCS: 32555; 36415; 71010; 80048; 80053; 80162; 81001; 81003; 82378; 82945; 83615; 83690; 83735; 83880; 84100; 84145; 84157; 84443; 84484; 85025; 85610; 85730; 86300; 87070; 87086; 87102; 87116; 88104; 88305; 89050; 93005; 93306; 96374; 96375; 97116; 97162; 97530; G0378; J1940; J3475

== ENCOUNTER 2017-09-02 10:59 | Inpatient (IN) | payer MEDICARE, BC ==
[~2017-09-02] VITALS: Ht 157.5 cm; Wt 46.0 kg
[~2017-09-02 10:59] MED LIST changes: +ATOR10TA65 PO; +FAMO20TA18 PO; +FURO40TA4 PO; -LOVA40TA64 PO; +METO-335 PO; -METO25TA7 PO; -NIFE30TA60 PO; +SPIR25TA PO; +WARF3TAB PO
[2017-09-02] MEDS ORDERED: ONDANSETRON 4 MG INJ IV STA (11:22)
[2017-09-02] MEDS ORDERED: morphine 2 MG INJ IV STA (11:22)
[2017-09-02] MEDS ORDERED: SOD CHLORIDE 0.9% 1,000 ML IV STA (11:22)
[2017-09-02] MEDS ORDERED: MEVA40 PO (12:09)
[2017-09-02] MEDS ORDERED: FAMO20TA18 PO (12:11)
[2017-09-02 12:56] LABS: ABNORMAL IP MESSAGE 1; BASOPHILS % 0.4 % (0.0-2.0); EOSINOPHILS % 0.1 % (0.0-7.0); HEMATOCRIT 46.9 % (37.0-47.0); HEMOGLOBIN 15.3 g/dl (12.0-16.0); LYMPHOCYTES # 0.3 10^3/ul (0.8-2.9); MEAN CORPUSCULAR HEMOGLOBIN 30.8 pg (29.0-33.0); MEAN CORPUSCULAR HGB CONC 32.6 g/dl (32.0-37.0); MEAN CORPUSCULAR VOLUME 94.4 fl (82.0-101.0); MEAN PLATELET VOLUME 10.1 fl (7.4-10.4); MONOCYTE # 0.8 10^3/ul (0.3-0.9); MONOCYTES % 7.6 % (0.0-11.0); NEUTROPHIL # 8.7 10^3/ul (1.6-7.5); NEUTROPHILS % 88.3 % (39.0-77.0); PLATELET COUNT 231 10^3/UL (140-415); RED BLOOD COUNT 4.97 10^6/ul (4.20-5.40); RED CELL DISTRIBUTION WIDTH 13.2 % (11.5-14.5); WHITE BLOOD COUNT 9.9 10^3/ul (4.8-10.8)
[2017-09-02 12:58] LABS: POSITIVE DIFF @See below
[2017-09-02] MEDS: DEXTROSE 5%-0.45% NACL 1,000 ML IV SCH (13:00)
[2017-09-02] MEDS ORDERED: DIGOXIN 0.125 MG TAB PO SCH (13:00)
[2017-09-02] MEDS ORDERED: NIFEdipine (XL) 30 MG TAB PO SCH (13:00)
[2017-09-02] MEDS ORDERED: NACL 0.9% 3 ML SYG IV SCH (13:00)
[2017-09-02] MEDS ORDERED: PANTOPRAZOLE 40 MG INJ IV SCH (13:00)
[2017-09-02] MEDS ORDERED: METOPROLOL (XL) 25 MG TAB PO SCH (13:00)
[2017-09-02] MEDS ORDERED: morphine 2 MG INJ IV PRN (13:00)
[2017-09-02 13:12] LABS: ALBUMIN 4.1 g/dl (3.3-4.9); ALBUMIN/GLOBULIN RATIO 1.13; CALCIUM 8.8 mg/dl (8.4-10.2); CREATININE 0.76 mg/dl (0.44-1.00); POTASSIUM 4.5 mmol/L (3.5-5.1); TOTAL PROTEIN 7.7 g/dl (6.1-8.1)
--- NOTE | 2017-09-02 13:12 | RADRPT ---
PROCEDURE: CT ABDOMEN AND PELVIS WITHOUT CONTRAST. CLINICAL INDICATION: Abdominal pain TECHNIQUE: CT scan of the abdomen and pelvis without contrast was performed on a multidetector hig h-resolution CT scanner. The patient was scanned without intravenous contrast. Coronal and sagittal reformatted images were obtained from the axial source images. Images were reviewed on a high-resol [employer] PACS workstation. The total exam CTDI equals 4.3 mGy and the total exam DLP equals 219.5 mGy-c m. One or more of the following dose reduction techniques were used: Automated exposure control. Adjustment of the mA and/or kV according to patient size. Use of iterative reconstruction technique. DICOM images are available COMPARISON: November 06, 2016 FINDINGS: CT abdomen: Bilateral lower lobe atelectasis and moderate to large pleural effusions. Heart size is enlarged. Th ere is no significant pericardial effusion. Plan morphology appears to be within limits. Gallbladder is within limits. No evidence of intrahepat ic or extrahepatic biliary dilatation. The spleen and pancreas appear to be within normal limits. Both adrenal glands are within normal limits. Both kidneys are visualized. No gross signs of obstruction or hydronephrosis. The right kidney is en larged. No gross renal/ureteric calculi. There is mild nonspecific bilateral perinephric fat strandi ng. The visualized GI tract demonstrates a small hiatal hernia. Thickening of the mota of the stomach i s noted. There are several loops of dilated small bowel. There is an area of focal narrowing and thi ckening of a short segment of a loop of distal small bowel within the pelvis, seen on image number 1 14 through 121 of series 3. The appendix is not clearly identified, however no inflammatory changes within right lower quadrant. Generalized mesenteric congestion is noted. Atherosclerotic calcification of the aorta is identified. There is no significant retroperitoneal ly mphadenopathy. CT pelvis: The bladder is within limits. The uterus is calcified and atrophic. Free fluid within the pelvis. Th e rectosigmoid colon demonstrates diffuse diverticulosis. The visualized osseous structures demonstrate multilevel degenerative disc disease of the spine and grade 1 anterolisthesis of L4-L5. IMPRESSION: 1. Multiple loops of dilated fluid-filled small bowel, with transition point noted within the lower abdomen/pelvis. There is focal thickening of a short segment of distal small bowel at the transition point. FINDINGS ARE CONCERNING FOR FOCAL INFECTIOUS VERSUS INFLAMMATORY ENTERITIS AND ASSOCIATED PA RTIAL TO EARLY SMALL BOWEL OBSTRUCTION. RECOMMEND FOLLOW-UP SMALL BOWEL SERIES. 2. Diffuse colonic diverticulosis. Small amount nonspecific free fluid within the pelvis. Small hiat al hernia. 3. Atherosclerosis of the aorta. 4. Bilateral lower lobe compressive atelectasis and moderate to large pleural effusions. Cardiomegal y. 5. Degenerative changes of the lumbosacral spine RPTAT: AAPP Maria Elena Calvin Physician Date Time Electronically viewed and signed by Maria Elena Calvin Physician on 09/02/2017 13:12 RUTH/
[2017-09-02 13:30] LABS: TROPONIN-I 0.454 ng/ml (0.00-0.12)
--- NOTE | 2017-09-02 13:44 | ERD ---
ER Documentation Chief Complaint Chief Complaint abd pain w n/v, cough hx chf HPI This 87-year-old female w/ a hx of CHF and breast cancer presents with abdominal pain for 3-4 days. Patient states that the abdominal pain is sharp, and has now localized to the lower abd quadrants and is tender to the touch. Patient's sister states she has been vomiting mucus since last night. Patient has been coughing consistently for the last month but says it has also worsened over the last 4 days. Last bowel movement was 2 days ago and she reports she had straining and stool was difficult to pass. Denies changes in urination: denies hematuria, dysuria, frequency. Denies chest pain denies shortness of breath. Patient lives with sister and does not use oxygen at home. ROS All systems reviewed and are negative except as per history of present illness. Medications Home Meds Active Scripts Spironolactone* (Aldactone*) 25 Mg Tablet, 25 MG PO DAILY for 30 Days, #30 TAB Prov:CAMERON CHO MD 11/17/16 Metoprolol Succinate* (Toprol XL*) 25 Mg Tab.sr.24h, 12.5 MG PO DAILY for 30 Days, #30 Prov:CAMERON CHO MD 11/17/16 Digoxin* (Digitek*) 125 Mcg Tablet, 0.125 MG PO Q2D@13 for 30 Days, #30 TAB Prov:CAMERON CHO MD 11/17/16 Warfarin Sodium* (Coumadin*) 3 Mg Tablet, 1.5 MG PO DAILY for 30 Days, #30 TAB Prov:CAMERON CHO MD 11/17/16 Reported Medications Famotidine* (Famotidine*) 20 Mg Tablet, 20 MG PO DAILY, #30 TAB 09/02/17 Lovastatin (Lovastatin) 40 Mg Tablet, 40 MG PO HS, TAB 09/02/17 Levothyroxine Sodium* (Levoxyl*) 50 Mcg Tablet, 50 MCG PO BEFORE BREAKFAST, #30 TAB 03/26/16 Discontinued Reported Medications Famotidine* (Famotidine*) 20 Mg Tablet, 20 MG PO BID, #60 TAB 11/12/16 Discontinued Scripts Furosemide* (Furosemide*) 40 Mg Tablet, 40 MG PO BID DIURETICS for 30 Days, #60 TAB Prov:CAMERON CHO MD 11/17/16 Atorvastatin (Atorvastatin) 10 Mg Tablet, 10 MG PO DAILY@21 for 30 Days, #30 TAB Prov:CAMERON CHO MD 11/17/16 Allergies Allergies: Coded Allergies: No Known Allergy (Unverified , 09/02/17) PMhx/Soc History of Surgery: Yes (MASTECTOMY L 1999 R 2015, appendectomy ) Anesthesia Reaction: No Hx Neurological Disorder: No Hx Respiratory Disorders: Yes (SOB CHF) Hx Cardiac Disorders: Yes (HTN A FIB) Hx Psychiatric Problems: No Hx Miscellaneous Medical Probl: Yes (hypothyroidism,htn,breast ca, afib, ruptured appendix) Hx Alcohol Use: No Hx Substance Use: No Hx Tobacco Use: No Smoking Status: Never smoker Physical Exam Vitals Vital Signs Date Time Temp Pulse Resp B/P Pulse Ox O2 Delivery O2 Flow Rate FiO2 09/02/17 12:35 93 17 177/90 100 Room Air 09/02/17 11:02 97.9 105 20 191/101 95 Physical Exam Const: [] Mild distress, communicative, pleasant Head: Atraumatic Eyes: Normal Conjunctiva ENT: Normal External Ears, Nose and Mouth. He gets membranes of the mouth dry mucous membranes of the mouth. Neck: Full range of motion..~ No meningismus. Resp: Clear to auscultation bilaterally Cardio: Regular rate and rhythm, no murmurs Abd: Mild, diffuse lower abdominal tenderness in LLQ, RLQ. Skin: No petechiae or rashes Ext: No cyanosis, or edema Neur: Awake and alert Psych: Normal Mood and Affect Result Diagram: 09/02/17 1240 09/02/17 1240 Results 24 hrs Laboratory Tests Test 09/02/17 12:40 White Blood Count 9.910^3/ul Red Blood Count 4.9710^6/ul Hemoglobin 15.3g/dl Hematocrit 46.9% Mean Corpuscular Volume 94.4fl Mean Corpuscular Hemoglobin 30.8pg Mean Corpuscular Hemoglobin Concent 32.6g/dl Red Cell Distribution Width 13.2% Platelet Count 62214^3/UL Mean Platelet Volume 10.1fl Neutrophils % 88.3% Lymphocytes % 3.0% Monocytes % 7.6% Eosinophils % 0.1% Basophils % 0.4% Nucleated Red Blood Cells % 0.0/100WBC Neutrophils # 8.710^3/ul Lymphocytes # 0.310^3/ul Monocytes # 0.810^3/ul Eosinophils # 0.010^3/ul Basophils # 0.010^3/ul Nucleated Red Blood Cells # 0.010^3/ul Sodium Level 135mmol/L Potassium Level 4.5mmol/L Chloride Level 92mmol/L Carbon Dioxide Level 32mmol/L Anion Gap 16 Blood Urea Nitrogen 16mg/dl Creatinine 0.76mg/dl Glucose Level 109mg/dl Calcium Level 8.8mg/dl Total Bilirubin 1.0mg/dl Direct Bilirubin 0.00mg/dl Indirect Bilirubin 1.0mg/dl Aspartate Amino Transf (AST/SGOT) 32IU/L Alanine Aminotransferase (ALT/SGPT) 27IU/L Alkaline Phosphatase 77IU/L Troponin I Pending Total Protein 7.7g/dl Albumin 4.1g/dl Globulin 3.60g/dl Albumin/Globulin Ratio 1.13 Lipase 67U/L Current Medications Medications (Trade) Dose Ordered Sig/Murphy Route PRN Reason Start Time Stop Time Status Last Admin Dose Admin Sodium Chloride (NS) 1,000 ml @ 1,000 mls/hr Q1H STAT IV 09/02/17 11:22 09/02/17 12:21 DC 09/02/17 12:00 Morphine Sulfate (morphine) 2 mg ONCE STAT IV 09/02/17 11:22 09/02/17 11:24 DC 09/02/17 12:00 Ondansetron HCl (Zofran Inj) 4 mg ONCE STAT IV 09/02/17 11:22 09/02/17 11:24 DC 09/02/17 11:22 Digoxin (Digoxin) 0.125 mg DAILY PO 09/02/17 13:00 Levothyroxine Sodium (Synthroid) 50 mcg BEFORE BREAKFAST PO 09/03/17 07:00 Metoprolol Succinate (Toprol Xl) 12.5 mg BID PO 09/02/17 13:00 Nifedipine 30 mg 30 mg DAILY PO 09/02/17 13:00 Dextrose/Sodium Chloride (D5-1/2ns) 1,000 ml @ 80 mls/hr [id number] IV 09/02/17 13:00 IV Flush (NS 3 ml) 3 ml PER PROTOCOL IV 09/02/17 13:00 Ondansetron HCl (Zofran Inj) 4 mg Q6H PRN IV NAUSEA AND/OR VOMITING 09/02/17 13:00 Morphine Sulfate (morphine) 1 mg Q4H PRN IV SEVERE PAIN LEVEL 7-10 09/02/17 13:00 Pantoprazole (Protonix Iv) 40 mg Q12 IV 09/02/17 13:00 UNV Procedures/MDM Early female with abdominal pain secondary to possible small bowel obstruction. She was given a liter of normal saline as well as 2 mg of morphine and 4 mg of Zofran. After this her symptoms were greatly improved. Signs of cardiac ischemia. Does have large pleural effusions. As of dehydration on physical exam as well as laboratories with contraction alkalosis and elderly female who is not anemic likely secondary to hemoconcentration. Dr. Gayle came and saw the patient in the emergency room is admitting the patient and handling any specialist. The patient needs. Vital signs are stable. EkG interpretation: Atrial fibrillation rate of 94, indeterminate axis, no ST elevations or depressions concerning for acute ischemia. Abnormal EKG. CT abdomen pelvis interpretation: Multiple dilated bowel loops partial small bowel obstruction. No free air is signs of perforation, moderate pleural effusion seen, no fractures radiation monitor interpretation: Irregularly irregular. Departure Diagnosis: Primary Impression: Small bowel obstruction Additional Impression: Dehydration Condition: Serious FRANCIS MARTIN DO Sep 02, 2017 13:32
[2017-09-02 13:59] LABS: INR 1.64; PROTIME 19.5 Sec (12.2-14.2); PT RATIO 1.5
[2017-09-02 14:00] LABS: PARTIAL THROMBOPLASTIN TIME 32.7 Sec (25.0-35.0)
--- NOTE | 2017-09-02 15:41 | HP ---
DATE OF ADMISSION: 09/02/2017 IDENTIFYING DATA: The patient is an 87-year-old female is being evaluated and to be admitted from [facility] ER with chief complaint of abdominal pain of 2 to 3 days' duration, nausea, reduced appetite and vomiting. HISTORICAL EVENTS: It was 2 to 3 days ago, the patient noted the onset of poorly defined abdominal pain which she believes more involving the upper then the lower abdomen. When trying to take liquid s, she would gag and at times vomit fluid that she had just consumed and did not try to eat any ann ds. There has been no hemetemesis. Her last bowel movement she believes was 2 days ago. She does not sense worsening of her abdominal pain with change of position. She has unchanged urinary incont inence without dysuria or hematuria. She has no new back pain. She denies orthopnea, PND. She has had no substernal chest pain. She denies fever or chills. PAST MEDICAL HISTORY: Includes: 1. Hypertension. 2. Atrial fibrillation. 3. Hyperlipidemia. 4. Hypothyroidism. 5. History of ruptured appendix. 6. Cancer of the breast in 1999, undergoing mastectomy and chemo with a modified right radical mast ectomy in 05/2015 completed x-ray therapy and has been followed by Dr. Burrell. 7. 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 8. Undergoing extensive workup here at [facility] in 02/[address] for weight loss [address] CT imaging no malignancy was detected. 9. Hospitalization in 02/2016, with poor appetite and weight loss. CT scan revealed bilateral pleu ral effusions. There was no infection, no malignancy as revealed by a thoracentesis. 10. History of a petechial right posterior temporal lobe hemorrhage when pursuing the cause of birch ucinations in 03/2016, as well as an old lacunar infarct. 11. Recent colonoscopy has not been performed. MEDICATIONS: 1. Aldactone 25 mg per day. 2. Vitamin D3 2000 units per day. 3. Digoxin 0.125 daily. 4. Lovastatin 40 mg per day. 5. Metoprolol XR 25 mg per day. 6. Adalat CC 30 mg per day 7. Famotidine 20 mg b.i.d. 8. Coumadin 3 mg 1 tablet daily. 9. Synthroid 50 mcg per day. ALLERGIES: CODEINE. PHYSICAL EXAMINATION: VITAL SIGNS: BP 177/90, heart rate was 93 and irregular, temperature 97.9. EYES: Extraocular muscles were full. NOSE, MOUTH, AND THROAT: Revealed dryness of mucous membranes. NECK: Revealed no jugular venous distention. LUNGS: Reduced breath sounds without rales, wheezes or rhonchi. HEART: Rhythm irregularly irregular without murmur or third sound. ABDOMEN: Not distended, intermittent high pitched bowel sounds, tenderness in the epigastrium area. Liver and spleen were not enlarged. No masses. EXTREMITIES: No edema. Peripheral pulses, DP and PT were markedly reduced. Popliteals are 2+. NEUROLOGIC: No lateralizing motor weakness. GASTROINTESTINAL: Rectal examination revealed no stool in the rectal vault. IMPRESSION: Abdominal pain, vomiting and reduced appetite, about 2 to 3 days' duration. I believe this is all primary GI disorder. Must always consider ischemic bowel, given atrial fibrillation ve rsus possible bowel obstruction. PLAN: Await laboratory studies and CT scan that was ordered labs. Gastroenterology to evaluate. T o be made n.p.o. for now. Dictated By: CATARINO RAMOS MD MR/NTS Conf#: [id number] DID#: [id number] CC: CATARINO RAMOS MD;*EndCC*
[2017-09-02] MEDS: ONDANSETRON 4 MG INJ IV PRN (16:27)
[2017-09-02 17:08] LABS: ADD UMIC YES; UR ASCORBIC ACID NEGATIVE (NEGATIVE); UR BILIRUBIN (Dip) NEGATIVE (NEGATIVE); UR BLOOD (Dip) 2+ mg/dL (NEGATIVE); UR CLARITY CLEAR (CLEAR); UR COLOR YELLOW (YELLOW); UR GLUCOSE (Dip) NEGATIVE (NEGATIVE); UR KETONES (Dip) 1+ mg/dL (NEGATIVE); UR LEUKOCYTE ESTERASE (Dip) NEGATIVE Leu/ul (NEGATIVE); UR MUCUS FEW /HPF (NONE SEEN); UR NITRITE (Dip) NEGATIVE (NEGATIVE); UR RBC 15 /HPF (0-5); UR SPECIFIC GRAVITY (Dip) 1.018 (1.003-1.030); UR TOTAL PROTEIN (Dip) 2+ mg/dl (NEGATIVE); UR UROBILINOGEN (Dip) 1+ mg/dL (NEGATIVE)
--- NOTE | 2017-09-02 17:33 | CONS ---
Date/Time of Note Date/Time of Note DATE: 09/02/17 TIME: 17:19 Assessment/Plan Assessment/Plan Chief Complaint/Hosp Course # NSTEMI- no acute change on ekg, does have acute abd process. unclear if stress of abd process caused demand/type ii nstemi vs. true concurrent type I. Pt with many comorbid conditions making her high risk for any invasive cardiac testing, at this time recommend medical mgmt of cardiac and GI conditions and trend ekg/trop. if sig clinical change, could re-consider - cont statin - low dose asa if ok with GI - hold coumadin, switch to lovenox 1mg/kg bid - serial trop/ekg - obtain echo to eval lv function # abd pain- ? sbo vs. infection on CT scan. - gi consulting, defer for mgmt # afib- chronic, rate controlled - cont bb, digoxin given stable bp - holding coumadin given possible need for procedure if safe from gi perspective, add lovenox as above # Pleural effusions- negative previous cytology with thoracentesis, has chronic diastolic hf - gentle hydration for possible GI infection/sbo, avoid diuresis given poor po intake - bp control # pericardial effusion- small anterio chronic - f/u echo # HTN - cont home meds Problems: Consultation Date/Type/Reason Admit Date/Time 09/02/2017 Date of Consultation: Sep 02, 2017 Type of Consultation: Cardiology Reason for Consultation NSTEMI Referring Provider: CATARINO RAMOS MD Hx of Present Illness Ms. Lowe is a 86 y.o. woman with h/o of chronic afib on anticoag, chronic diastolic heart failure, small pericardial effusion who is previous known to me. History obtained from referring physician, review of provider notes, patient and family at bedside. Pt with progressive anorexia, nasuea, some vomitting, and abd pain x 2-3 days. Pt states pain is severe, new onset, involving the mid upper abdomen. no radiation of pain. + nausea with some vomitting. no positional pain but worse to touch. pt states has not been having diarrhea or any bm, no flatus. no hematemesis, melena, hematochezia. some mild liquid intake, no solid intake. She has unchanged urinary incontinence without dysuria or hematuria. Pt/family do report sob on exertion, not at rest and mild non-productive cough. no chest pain/pressure, jaw/arm pain, diaphoresis, fevers, chills, palpitations, dizziness, syncope. EKG reviewed in ed shows afib with rates controlled, no acute changes. tele with rvr at times 100s-110s Ct abd report showed possible enteritis vs early sbo, bilateral pleural effusions Constitutional: poor po Eyes: no complaints ENT: no complaints Respiratory: cough, shortness of breath Cardiovascular: No chest pain Gastrointestinal: decreased appetite, nausea, pain, vomiting, No flatus, No passing stool Musculoskeletal: no complaints Skin: no complaints Neurologic: no complaints Endocrine: no complaints Psychological: nl mood/affect, no complaints Immunologic: no complaints Past Medical History Past Medical History chronic diastolic heart failure, chronic pleural/pericardial effusion, hypertension, chronic atrial fibrillation on Coumadin, hyperlipidemia, hypothyroidism, left breast cancer status post mastectomy and chemo and then right radical mastectomy in May of 2015 with radiation therapy and given anastrozole, basal cell skin cancer from nose, squamous cell skin cancer, hearing loss, weight loss, acute renal failure Past Surgical History Breast cancer surgery, both left and right; bilateral cataract extraction, basal cell, squamous cell, and melanoma skin surgeries. Family History Significant Family History: other (denies cad) Social History Alcohol Use: none Smoking Status: Never smoker Drug Use: none Social History Smoking Status: Never smoker Exam/Review of Systems Vital Signs Vitals Vital Signs Date Time Temp Pulse Resp B/P Pulse Ox O2 Delivery O2 Flow Rate FiO2 09/02/17 16:47 102 16 174/99 100 Nasal Cannula 09/02/17 11:02 97.9 Exam Constitutional: alert, oriented, frail Psych: no complaints Head: normocephalic Eyes: EOMI ENMT: op clear poor dentition Respiratory: other (decrease bs bilatearl base) Cardiovascular: irregular rhythm, nl pulses, systolic murmur Gastrointestinal: + ttp light palpation, no guarding/rebound Musculoskeletal: no sig edema, Extremities: normal pulses, wwp Neurological: IRON CUTTER II-XII intact, nl mental status, nl speech Results Result Diagram: 09/02/17 1240 09/02/17 1240 Results 24 hrs Laboratory Tests Test 09/02/17 12:40 09/02/17 16:40 White Blood Count 9.9 # Red Blood Count 4.97 # Hemoglobin 15.3 Hematocrit 46.9 # Mean Corpuscular Volume 94.4 Mean Corpuscular Hemoglobin 30.8 Mean Corpuscular Hemoglobin Concent 32.6 Red Cell Distribution Width 13.2 Platelet Count 231 Mean Platelet Volume 10.1 Neutrophils % 88.3 H Lymphocytes % 3.0 L Monocytes % 7.6 Eosinophils % 0.1 Basophils % 0.4 Nucleated Red Blood Cells % 0.0 Neutrophils # 8.7 H Lymphocytes # 0.3 L Monocytes # 0.8 Eosinophils # 0.0 Basophils # 0.0 Nucleated Red Blood Cells # 0.0 Prothrombin Time 19.5 #H Prothrombin Time Ratio 1.5 INR International Normalized Ratio 1.64 Activated Partial Thromboplast Time 32.7 Sodium Level 135 Potassium Level 4.5 Chloride Level 92 L Carbon Dioxide Level 32 H Anion Gap 16 Blood Urea Nitrogen 16 Creatinine 0.76 Glucose Level 109 Calcium Level 8.8 Total Bilirubin 1.0 Direct Bilirubin 0.00 Indirect Bilirubin 1.0 Aspartate Amino Transf (AST/SGOT) 32 Alanine Aminotransferase (ALT/SGPT) 27 Alkaline Phosphatase 77 Troponin I 0.454 *H Total Protein 7.7 Albumin 4.1 Globulin 3.60 H Albumin/Globulin Ratio 1.13 Amylase Level 32 Lipase 67 Urine Color YELLOW Urine Clarity CLEAR Urine pH 5.0 Urine Specific [place] 1.018 Urine Ketones 1+ H Urine Nitrite NEGATIVE Urine Bilirubin NEGATIVE Urine Urobilinogen 1+ H Urine Leukocyte Esterase NEGATIVE Urine Microscopic RBC 15 H Urine Microscopic WBC 1 Urine Mucus FEW A Urine Hemoglobin 2+ H Urine Glucose NEGATIVE Urine Total Protein 2+ H Medications Medications Current Medications Digoxin (Digoxin) 0.125 mg DAILY PO Last administered on 09/02/17 14:42; Admin Dose 0.125 MG; Start 09/02/17 at 13:00 Metoprolol Succinate (Toprol Xl) 12.5 mg BID PO Last administered on 14:43; Admin Dose 12.5 MG; Start 09/02/17 at 13:00 Nifedipine 30 mg 30 mg DAILY PO Last administered on 09/02/17 14:42; Admin Dose 30 MG; Start 09/02/17 at 13:00 Dextrose/Sodium Chloride (D5-1/2ns) 1,000 ml @ 80 mls/hr [id number] IV Last administered on 09/02/17 13:00; Admin Dose 80 MLS/HR; Start 09/02/17 at 13:00 Ondansetron HCl (Zofran Inj) 4 mg Q6H PRN IV NAUSEA AND/OR VOMITING Last administered on 09/02/17t 16:27; Admin Dose 4 MG; Start 09/02/17 at 13:00 Morphine Sulfate (morphine) 1 mg Q4H PRN IV SEVERE PAIN LEVEL 7-10; Start at 13:00 Famotidine 20 mg 20 mg BID IV ; Start 09/02/17 at 21:00 Sodium Chloride (NS) 1,000 ml @ 80 mls/hr [id number] IV ; Start 09/02/17 at 17:30 ; Status UNV Procedures Procedures ct abd report reviewed 1. Multiple loops of dilated fluid-filled small bowel, with transition point noted within the lower abdomen/pelvis. There is focal thickening of a short segment of distal small bowel at the transition point. FINDINGS ARE CONCERNING FOR FOCAL INFECTIOUS VERSUS INFLAMMATORY ENTERITIS AND ASSOCIATED PARTIAL TO EARLY SMALL BOWEL OBSTRUCTION. RECOMMEND FOLLOW-UP SMALL BOWEL SERIES. 2. Diffuse colonic diverticulosis. Small amount nonspecific free fluid within the pelvis. Small hiatal hernia. 3. Atherosclerosis of the aorta. 4. Bilateral lower lobe compressive atelectasis and moderate to large pleural effusions. Cardiomegaly. 5. Degenerative changes of the lumbosacral spine EVE DELGADO Sep 02, 2017 17:33
[2017-09-02] MEDS ORDERED: DILTIAZEM-D5W 125MG/125ML DRIP 125 ML IV SCH (18:00)
[2017-09-02] MEDS ORDERED: hydrALAzine 20 MG INJ IV PRN (18:00)
[2017-09-02] MEDS ORDERED: CLONIDINE 0.1 MG/24 HR PATCH TRANSDERM SCH (18:00)
[2017-09-02] MEDS ORDERED: PANTOPRAZOLE 40 MG INJ IV ONE (18:30)
[2017-09-02 18:36] LABS: MAGNESIUM 1.5 mg/dl (1.7-2.5); PHOSPHORUS 4.4 mg/dl (2.5-4.9)
[2017-09-02] MEDS: FAMOTIDINE 20 MG INJ IV SCH (21:33)
--- NOTE | 2017-09-02 23:53 | CONS ---
DATE OF ADMISSION: 09/02/2017 DATE OF CONSULTATION: 09/02/2017 TYPE OF CONSULTATION: Gastroenterology. Thank you for having me see this patient. HISTORY OF PRESENT ILLNESS: As you know, she is an 87-year-old woman who was admitted to the [facility] because of 1 week of abdominal pain. History is obtained from the patient, her sister and her da gilmerer. Apparently, the pain started 1 week ago. This is diffuse, periumbilical. It has become mo re severe lately. For the past 3 days she has not had a bowel movement. This is very unusual for [facility] inasmuch as her usual bowel pattern is once daily. Her pain became so severe that she sought [facility] attention. In addition, she noted tenderness in her abdomen to touch as well as distention. I n addition, she has had nausea and vomiting. PAST MEDICAL HISTORY: Significant hospitalizations for atrial fibrillation, congestive heart failur e, breast cancer, mastectomy, appendectomy, basal cell cancer operation, and cataract surgery. Of n ote, her appendectomy was complicated because the appendix had ruptured. ADULT ILLNESSES: Significant for congestive failure, atrial fibrillation, breast cancer, hyperlipid emia, hypertension, hypothyroidism. CHILDHOOD: Denies rheumatic fever or scarlet fever. ALLERGIES: NONE KNOWN. INJURIES: None. MEDICATIONS: Currently include: 1. Digoxin. 2. Synthroid. 3. Pepcid. 4. Apresoline. 5. Zofran. 6. Morphine. 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 She does not smoke. She drinks 2 glasses of wine nightly. FAMILY HISTORY: Noncontributory. REVIEW OF SYSTEMS: Negative except as noted above. PHYSICAL EXAMINATION: GENERAL: Shows the patient is a well-developed elderly white female in no acute distress. VITAL SIGNS: Temperature 97.9, pulse 100, respirations 16, blood pressure 174/99. SKIN: Clear. HEENT: Negative. LUNGS: Clear to percussion and auscultation. CARDIAC: No murmurs or gallops. ABDOMEN: Soft, nontender, gaseous distention, no rebound, rigidity. RECTAL: Brown stool. LABORATORY DATA: Remarkable for a CAT scan which shows evidence of an early small bowel obstruction . LABORATORY DATA: Remarkable for white count 9.9, hemoglobin 15, hematocrit 46, platelets 231. PT/I NR 1.64, PTT 32.7, AST 32, ALT 27, alkaline phosphatase 77, amylase 32, lipase 67. IMPRESSION: Based on the CAT scan, the patient likely has a small bowel obstruction. Given her pre vious perforated appendicitis I suspect she may have adhesions as the responsible reason for that. PLAN: I have discussed the above in depth with the patient and her sister and daughter. I have als o discussed this with Dr. Gayle. Given the small bowel obstruction, we will place a nasogastric tu be. In addition, the patient will be seen in surgical consultation. Thank you for having me see this patient in consultation. Dictated By: JULIAN CARBAJAL/REI Conf#: [id number] DID#: [id number]
[2017-09-03] VITALS (11 sets, daily range): BP systolic 102–131; BP diastolic 55–70; PULSE 40–119; RESP 17–20; Ht 157.5 cm; Wt 46.0 kg
--- NOTE | 2017-09-03 02:34 | RADRPT ---
PROCEDURE: XR Chest. CLINICAL INDICATION: Pleural effusions.. TECHNIQUE: Single frontal chest x-ray. COMPARISON: 11/16/2016 FINDINGS: Heart is enlarged. There is increased interstitial prominence compatible with CHF.. Lungs appear mil dly hyperinflated. There is small bilateral pleural effusions with associated atelectasis. There is no pneumothorax. The osseous structures are unremarkable. The are bilateral axillary surgical clip s. IMPRESSION: Cardiomegaly. Pulmonary vascular congestion. Hyperinflation. Small bilateral pleural effusions with associated atelectasis. RPTAT: HMVK .Caleb Morataya MD, Date Time Electronically viewed and signed by .Caleb Morataya MD, on 09/03/2017 02:33 .K/
[2017-09-03] MEDS: SOD CHLORIDE 0.9% 1,000 ML IV SCH ×2 (03:43→05:49)
[2017-09-03] MEDS ORDERED: MAGNESIUM SULFATE 2 GM/50 ML 50 ML IVPB ONE (04:30)
[2017-09-03] MEDS: DEXTROSE 5%-0.45% NACL 1,000 ML IV SCH (05:00)
[2017-09-03] MEDS ORDERED: LEVOTHYROXINE 50 MCG TAB PO SCH (07:00)
[2017-09-03 07:16] LABS: ABNORMAL IP MESSAGE 1; BASOPHIL # 0.1 10^3/ul (0.0-0.1); BASOPHILS % 0.6 % (0.0-2.0); EOSINOPHILS % 0.5 % (0.0-7.0); HEMATOCRIT 41.8 % (37.0-47.0); HEMOGLOBIN 13.7 g/dl (12.0-16.0); LYMPHOCYTES # 0.4 10^3/ul (0.8-2.9); LYMPHOCYTES % 5.1 % (15.0-51.0); MEAN CORPUSCULAR HEMOGLOBIN 31.4 pg (29.0-33.0); MEAN CORPUSCULAR HGB CONC 32.8 g/dl (32.0-37.0); MEAN CORPUSCULAR VOLUME 95.7 fl (82.0-101.0); MEAN PLATELET VOLUME 10.6 fl (7.4-10.4); MONOCYTE # 1.1 10^3/ul (0.3-0.9); MONOCYTES % 13.2 % (0.0-11.0); NEUTROPHIL # 6.7 10^3/ul (1.6-7.5); NEUTROPHILS % 80.4 % (39.0-77.0); PLATELET COUNT 215 10^3/UL (140-415); RED BLOOD COUNT 4.37 10^6/ul (4.20-5.40); RED CELL DISTRIBUTION WIDTH 13.2 % (11.5-14.5); WHITE BLOOD COUNT 8.4 10^3/ul (4.8-10.8)
[2017-09-03 07:19] LABS: POSITIVE DIFF @See below
[2017-09-03 07:31] LABS: INR 1.6; PROTIME 19.2 Sec (12.2-14.2); PT RATIO 1.5
[2017-09-03 07:36] LABS: ALBUMIN 3.2 g/dl (3.3-4.9); ALBUMIN/GLOBULIN RATIO 0.91; CALCIUM 8.4 mg/dl (8.4-10.2); CREATININE 0.7 mg/dl (0.44-1.00); MAGNESIUM 1.9 mg/dl (1.7-2.5); PHOSPHORUS 3.1 mg/dl (2.5-4.9); TOTAL PROTEIN 6.7 g/dl (6.1-8.1)
[2017-09-03] MEDS: LEVOTHYROXINE 100 MCG VIAL IV SCH (07:43)
[2017-09-03 08:03] LABS: THYROID STIMULATING HORMONE 1.46 MIU/L (0.465-4.680)
--- NOTE | 2017-09-03 08:14 | PN ---
Date/Time of Note Date/Time of Note DATE: 09/03/17 TIME: 08:10 Assessment/Plan VTE Prophylaxis VTE Prophylaxis Intervention: other Lines/Catheters IV Catheter Type (from Nrsg): Peripheral IV Urinary Cath still in place: Yes Reason Cath still needed: urinary retention, pres ulcer contaminated by urine, skin wounds contaminated by urine Assessment/Plan Assessment/Plan 1. SBO is better today, NG tube could not be placed in ER, she had no abd pain today, await GI and surgery follow up, KUB was ordered this am. Resume po meds per GI 2. Afib, will start lovenox today as no gi bleeding (gross) 3. Leave jenkins in place 1 more day 4. HX chf, not clinically present despite cxr findings. 5. Elevated troponin with no further rise, ? significance, she is asx, will rev with cards. Subjective 24 Hr Interval Summary Respiratory: No cough, No shortness of breath Cardiovascular: No chest pain Gastrointestinal: No pain, No vomiting Genitourinary: other (jenkins in place) Exam/Review of Systems Vital Signs Vitals Vital Signs Date Time Temp Pulse Resp B/P Pulse Ox O2 Delivery O2 Flow Rate FiO2 09/03/17 07:59 97.5 78 18 102/56 90 09/03/17 04:05 Nasal Cannula 2.0 Intake and Output 09/02/17 09/02/17 09/03/17 15:00 23:00 07:00 Intake Total 80 ml Output Total 200 ml Balance -120 ml Exam Neck: No jvd Respiratory: clear to auscultation, diminished breath sounds Cardiovascular: No irregular rhythm Gastrointestinal: soft, No hepatomegaly, No splenomegaly, No tender Extremities: No edema Results Result Diagram: 09/03/17 0641 09/03/17 0641 Results 24 hrs Laboratory Tests Test 09/02/17 12:40 09/02/17 16:40 09/02/17 21:00 09/03/17 06:41 White Blood Count 9.9 # 8.4 Red Blood Count 4.97 # 4.37 Hemoglobin 15.3 13.7 Hematocrit 46.9 # 41.8 Mean Corpuscular Volume 94.4 95.7 Mean Corpuscular Hemoglobin 30.8 31.4 Mean Corpuscular Hemoglobin Concent 32.6 32.8 Red Cell Distribution Width 13.2 13.2 Platelet Count 231 215 Mean Platelet Volume 10.1 10.6 H Neutrophils % 88.3 H 80.4 H Lymphocytes % 3.0 L 5.1 L Monocytes % 7.6 13.2 H Eosinophils % 0.1 0.5 Basophils % 0.4 0.6 Nucleated Red Blood Cells % 0.0 0.0 Neutrophils # 8.7 H 6.7 Lymphocytes # 0.3 L 0.4 L Monocytes # 0.8 1.1 H Eosinophils # 0.0 0.0 Basophils # 0.0 0.1 Nucleated Red Blood Cells # 0.0 0.0 Prothrombin Time 19.5 #H 19.2 H Prothrombin Time Ratio 1.5 1.5 INR International Normalized Ratio 1.64 1.60 Activated Partial Thromboplast Time 32.7 Sodium Level 135 133 L Potassium Level 4.5 4.0 Chloride Level 92 L 95 L Carbon Dioxide Level 32 H 35 H Anion Gap 16 7 #L Blood Urea Nitrogen 16 14 Creatinine 0.76 0.70 Glucose Level 109 91 Calcium Level 8.8 8.4 Phosphorus Level 4.4 3.1 Magnesium Level 1.5 L 1.9 Total Bilirubin 1.0 1.0 Direct Bilirubin 0.00 0.00 Indirect Bilirubin 1.0 1.0 Aspartate Amino Transf (AST/SGOT) 32 29 Alanine Aminotransferase (ALT/SGPT) 27 27 Alkaline Phosphatase 77 59 Troponin I 0.454 *H 0.396 *H Total Protein 7.7 6.7 # Albumin 4.1 3.2 L Globulin 3.60 H 3.50 H Albumin/Globulin Ratio 1.13 0.91 Amylase Level 32 Lipase 67 Urine Color YELLOW Urine Clarity CLEAR Urine pH 5.0 Urine Specific [place] 1.018 Urine Ketones 1+ H Urine Nitrite NEGATIVE Urine Bilirubin NEGATIVE Urine Urobilinogen 1+ H Urine Leukocyte Esterase NEGATIVE Urine Microscopic RBC 15 H Urine Microscopic WBC 1 Urine Mucus FEW A Urine Hemoglobin 2+ H Urine Glucose NEGATIVE Urine Total Protein 2+ H Thyroid Stimulating Hormone (TSH) 1.460 Digoxin Level 1.0 Medications Medications Current Medications Ondansetron HCl (Zofran Inj) 4 mg Q6H PRN IV NAUSEA AND/OR VOMITING Last administered on 09/02/17 16:27; Admin Dose 4 MG; Start 09/02/17 at 13:00 Famotidine 20 mg 20 mg BID IV Last administered on 09/02/17 21:33; Admin Dose 20 MG; Start 09/02/17 at 21:00 Sodium Chloride (NS) 1,000 ml @ 80 mls/hr [id number] IV ; Start 09/02/17 at 17:30 Digoxin (Digoxin) 125 mcg DAILY@13 IV ; Start 09/03/17 at 13:00 Levothyroxine Sodium (Synthroid Iv) 25 mcg DAILY@06 IV ; Start 09/03/17 at 06: 00 Hydralazine HCl 5 mg 5 mg Q6H PRN IV ELEVATED SYSTOLIC BP; Start 09/02/17 at 18:00 Diltiazem HCl (Cardizem-D5W 125 Mg/125 ml Drip) 125 ml @ 5 mls/hr TITRATE IV ; Start 09/02/17 at 18:00 CATARINO RAMOS MD Sep 03, 2017 08:14
--- NOTE | 2017-09-03 08:55 | CONS ---
Date/Time of Note Date/Time of Note DATE: 09/03/17 TIME: 08:50 Assessment/Plan Assessment/Plan Chief Complaint/Hosp Course # NSTEMI- no acute change on ekg, troponin elevation downtrending. unclear if stress of abd process caused demand/type ii nstemi vs. true concurrent type I. Pt with many comorbid conditions making her high risk for any invasive cardiac testing, at this time recommend medical mgmt. if sig clinical change, could re -consider invasive evaluation. - cont statin - low dose asa if ok with GI - hold coumadin, switch to lovenox 1mg/kg bid - obtain echo to eval lv function # abd pain- SBO on ct scan, improved. did not tolerate NG tube placement. - gi consulting, defer for mgmt # afib- chronic, rate controlled - cont bb, digoxin given stable bp - holding coumadin given possible need for procedure if safe from gi perspective, lovenox as above # Pleural effusions- negative previous cytology with thoracentesis, has chronic diastolic hf - gentle hydration for possible GI infection/sbo, avoid diuresis given poor po intake - bp control # pericardial effusion- small anterio chronic - f/u echo # HTN - cont home meds Problems: Consultation Date/Type/Reason Admit Date/Time Sep 03, 2017 at 04:20 Initial Consult Date 09/02/17 Type of Consultation: Cardiology Referring Provider: CATARINO RAMOS MD 24 HR Interval Summary Free Text/Dictation no acute events. pt states NG not placed despite 3 attempts. states abd pain improved this am, no n/v. she has passed flatus, no bm. no chest pain, sob, palpitations, dizziness. no jaw/arm pain tele reviewed: afib rates controlled 50s-60s. 1 run NSVT x 3 beats, rare PVCs. Detailed Summary ENT: no complaints Respiratory: no complaints Cardiovascular: no complaints Gastrointestinal: decreased appetite, No pain Exam/Review of Systems Vital Signs Vitals Vital Signs Date Time Temp Pulse Resp B/P Pulse Ox O2 Delivery O2 Flow Rate FiO2 09/03/17 08:13 52 09/03/17 07:59 97.5 18 102/56 90 09/03/17 04:05 Nasal Cannula 2.0 Intake and Output 09/02/17 09/02/17 09/03/17 15:00 23:00 07:00 Intake Total 80 ml Output Total 200 ml Balance -120 ml Exam Constitutional: alert, oriented, frail Psych: no complaints Head: normocephalic Eyes: EOMI ENMT: op clear poor dentition Respiratory: other (decrease bs bilatearl base) Cardiovascular: irregular rhythm, nl pulses, systolic murmur Gastrointestinal: no ttp, no guarding/rebound Musculoskeletal: no sig edema, Extremities: normal pulses, wwp Neurological: PREDICTIVE MAINTENANCE SPECIALIST II-XII intact, nl mental status, nl speech Results Result Diagram: 09/03/17 0641 09/03/17 0641 Results 24 hrs Laboratory Tests Test 09/02/17 12:40 09/02/17 16:40 09/02/17 21:00 09/03/17 06:41 White Blood Count 9.9 # 8.4 Red Blood Count 4.97 # 4.37 Hemoglobin 15.3 13.7 Hematocrit 46.9 # 41.8 Mean Corpuscular Volume 94.4 95.7 Mean Corpuscular Hemoglobin 30.8 31.4 Mean Corpuscular Hemoglobin Concent 32.6 32.8 Red Cell Distribution Width 13.2 13.2 Platelet Count 231 215 Mean Platelet Volume 10.1 10.6 H Neutrophils % 88.3 H 80.4 H Lymphocytes % 3.0 L 5.1 L Monocytes % 7.6 13.2 H Eosinophils % 0.1 0.5 Basophils % 0.4 0.6 Nucleated Red Blood Cells % 0.0 0.0 Neutrophils # 8.7 H 6.7 Lymphocytes # 0.3 L 0.4 L Monocytes # 0.8 1.1 H Eosinophils # 0.0 0.0 Basophils # 0.0 0.1 Nucleated Red Blood Cells # 0.0 0.0 Prothrombin Time 19.5 #H 19.2 H Prothrombin Time Ratio 1.5 1.5 INR International Normalized Ratio 1.64 1.60 Activated Partial Thromboplast Time 32.7 Sodium Level 135 133 L Potassium Level 4.5 4.0 Chloride Level 92 L 95 L Carbon Dioxide Level 32 H 35 H Anion Gap 16 7 #L Blood Urea Nitrogen 16 14 Creatinine 0.76 0.70 Glucose Level 109 91 Calcium Level 8.8 8.4 Phosphorus Level 4.4 3.1 Magnesium Level 1.5 L 1.9 Total Bilirubin 1.0 1.0 Direct Bilirubin 0.00 0.00 Indirect Bilirubin 1.0 1.0 Aspartate Amino Transf (AST/SGOT) 32 29 Alanine Aminotransferase (ALT/SGPT) 27 27 Alkaline Phosphatase 77 59 Troponin I 0.454 *H 0.396 *H Total Protein 7.7 6.7 # Albumin 4.1 3.2 L Globulin 3.60 H 3.50 H Albumin/Globulin Ratio 1.13 0.91 Amylase Level 32 Lipase 67 Urine Color YELLOW Urine Clarity CLEAR Urine pH 5.0 Urine Specific [place] 1.018 Urine Ketones 1+ H Urine Nitrite NEGATIVE Urine Bilirubin NEGATIVE Urine Urobilinogen 1+ H Urine Leukocyte Esterase NEGATIVE Urine Microscopic RBC 15 H Urine Microscopic WBC 1 Urine Mucus FEW A Urine Hemoglobin 2+ H Urine Glucose NEGATIVE Urine Total Protein 2+ H Thyroid Stimulating Hormone (TSH) 1.460 Digoxin Level 1.0 Medications Medications Current Medications Ondansetron HCl (Zofran Inj) 4 mg Q6H PRN IV NAUSEA AND/OR VOMITING Last administered on 09/02/17 16:27; Admin Dose 4 MG; Start 09/02/17 at 13:00 Famotidine (Pepcid Iv) 20 mg BID IV Last administered on 09/02/17 21:33; Admin Dose 20 MG; Start 09/02/17 at 21:00 Levothyroxine Sodium (Synthroid Iv) 25 mcg DAILY@06 IV ; Start 09/03/17 at 06: 00 Hydralazine HCl 5 mg 5 mg Q6H PRN IV ELEVATED SYSTOLIC BP; Start 09/02/17 at 18:00 Diltiazem HCl (Cardizem-D5W 125 Mg/125 ml Drip) 125 ml @ 5 mls/hr TITRATE IV ; Start 09/02/17 at 18:00 Enoxaparin Sodium 45 mg 45 mg Q24H SC ; Start 09/03/17 at 10:00 Dextrose/Sodium Chloride (D5-NS) 1,000 ml @ 75 mls/hr [id number] IV ; Start 09/03 at 08:30 Procedures Procedures cxr report reviewed IMPRESSION: Cardiomegaly. Pulmonary vascular congestion. Hyperinflation. Small bilateral pleural effusions with associated atelectasis. EVE DELGADO Sep 03, 2017 08:55
[2017-09-03] MEDS: DEXTROSE 5%-0.9% NACL 1,000 ML IV SCH ×2 (10:16→21:50)
[2017-09-03] MEDS: FAMOTIDINE 20 MG INJ IV SCH ×2 (10:16→20:40)
[2017-09-03] MEDS: ENOXAPARIN 60 MG/0.6 ML SYG SC SCH (10:28)
--- NOTE | 2017-09-03 11:01 | RADRPT ---
PROCEDURE: XR ABDOMEN. CLINICAL INDICATION: Abdominal pain TECHNIQUE: 2 views of the abdomen were obtained. COMPARISON: None. FINDINGS: There is nonspecific bowel gas pattern. No evidence of obstruction. No evidence of air-fluid levels. Stool and air is noted throughout large bowel. No evidence of subdiaphragmatic free air. No gross a bnormal calcifications overlying the urinary tracts. Multilevel degenerative disease of the lumbosac ral spine is noted. There is a small bilateral pleural effusion. IMPRESSION: 1. Nonspecific bowel gas pattern without evidence of obstruction. Stool filled loops of large bowel suggestive of constipation. 2. No evidence of subdiaphragmatic free air. 3. Small bilateral pleural effusions. 4. Multilevel degenerative disease of the lumbosacral spine. RPTAT: AAPP Physician Kade Date Time Electronically viewed and signed by Physician Kade on 09/03/2017 11:01 RUTH/
[2017-09-03] MEDS ORDERED: DIGOXIN 500 MCG INJ IV SCH (13:00)
--- NOTE | 2017-09-03 16:53 | CONS ---
Date/Time of Note Date/Time of Note DATE: 09/03/17 TIME: 16:48 Consult Date/Type/Reason Admit Date/Time Sep 03, 2017 at 04:20 Initial Consult Date 09/02/17 Type of Consultation: GI Ordering Provider: CATARINO RAMOS MD Subjective Feels better Denies pain, nausea or vomiting Tolerating clear liquids Objective Vital Signs Date Time Temp Pulse Resp B/P Pulse Ox O2 Delivery O2 Flow Rate FiO2 09/03/17 16:12 119 09/03/17 15:27 97.4 20 111/55 94 09/03/17 04:05 Nasal Cannula 2.0 Chest: clear Cardiac: no m r, g Abdomen: soft, non tender, + bs, decreased distention Intake and Output 09/02/17 09/02/17 09/03/17 15:00 23:00 07:00 Intake Total 80 ml Output Total 200 ml Balance -120 ml Results/Medications Result Diagram: 09/03/17 0641 09/03/17 0641 Results 24 hrs Laboratory Tests Test 09/02/17 21:00 09/03/17 06:41 09/03/17 11:03 Troponin I 0.396 *H White Blood Count 8.4 Red Blood Count 4.37 Hemoglobin 13.7 Hematocrit 41.8 Mean Corpuscular Volume 95.7 Mean Corpuscular Hemoglobin 31.4 Mean Corpuscular Hemoglobin Concent 32.8 Red Cell Distribution Width 13.2 Platelet Count 215 Mean Platelet Volume 10.6 H Neutrophils % 80.4 H Lymphocytes % 5.1 L Monocytes % 13.2 H Eosinophils % 0.5 Basophils % 0.6 Nucleated Red Blood Cells % 0.0 Neutrophils # 6.7 Lymphocytes # 0.4 L Monocytes # 1.1 H Eosinophils # 0.0 Basophils # 0.1 Nucleated Red Blood Cells # 0.0 Prothrombin Time 19.2 H Prothrombin Time Ratio 1.5 INR International Normalized Ratio 1.60 Sodium Level 133 L Potassium Level 4.0 Chloride Level 95 L Carbon Dioxide Level 35 H Anion Gap 7 #L Blood Urea Nitrogen 14 Creatinine 0.70 Glucose Level 91 Calcium Level 8.4 Phosphorus Level 3.1 Magnesium Level 1.9 Total Bilirubin 1.0 Direct Bilirubin 0.00 Indirect Bilirubin 1.0 Aspartate Amino Transf (AST/SGOT) 29 Alanine Aminotransferase (ALT/SGPT) 27 Alkaline Phosphatase 59 Total Protein 6.7 # Albumin 3.2 L Globulin 3.50 H Albumin/Globulin Ratio 0.91 Thyroid Stimulating Hormone (TSH) 1.460 Digoxin Level 1.0 1.0 Medications Current Medications Ondansetron HCl (Zofran Inj) 4 mg Q6H PRN IV NAUSEA AND/OR VOMITING Last administered on 09/02/17 16:27; Admin Dose 4 MG; Start 09/02/17 at 13:00 Famotidine (Pepcid Iv) 20 mg BID IV Last administered on 09/03/17 10:16; Admin Dose 20 MG; Start 09/02/17 at 21:00 Levothyroxine Sodium (Synthroid Iv) 25 mcg DAILY@06 IV ; Start 09/03/17 at 06: 00 Hydralazine HCl 5 mg 5 mg Q6H PRN IV ELEVATED SYSTOLIC BP; Start 09/02/17 at 18:00 Diltiazem HCl (Cardizem-D5W 125 Mg/125 ml Drip) 125 ml @ 5 mls/hr TITRATE IV ; Start 09/02/17 at 18:00 Enoxaparin Sodium 45 mg 45 mg Q24H SC Last administered on 09/03/17 10:28; Admin Dose 45 MG; Start 09/03/17 at 10:00 Dextrose/Sodium Chloride (D5-NS) 1,000 ml @ 75 mls/hr [id number] IV Last administered on 09/03/17 10:16; Admin Dose 75 MLS/HR; Start 09/03/17 at 08:30 Assessment/Plan Chief Complaint/Hosp Course Impression: SBO Clinically improved and X Ray shows only stool in colon ( Note patient could not tolerate placement of NG yesterday) Plan: Await formal surgical consult - patient states she was seen but no note in chart Give fleets enema to clean out stool Repeat KUB/Upright in am If doing well and X Ray does not show problems, consider increasing diet tomorrow Problems: JULIAN POWELL MD Sep 03, 2017 16:53
--- NOTE | 2017-09-03 17:46 | RADRPT ---
Echocardiogram Report Patient Name: HARITHA HUNT Gender: Female Date: 1930 Study Date: 03-Sep-2017 Manager Electronic: Pato Blanchard [facility] Location: [id number] Ref. Physician: LEANDRO DELGADO Quality: Technically Difficult Study Procedures: Transthoracic echocardiogram with complete 2D, M-Mode, and doppler examination. Indications: NSTEMI. 2D/M Mode Doppler Measurement Value Normal Ranges Measurement Value Normal Ranges LVIDd 2D 3.8 3.5 - 5.6 cm AV Peak Omar 0.9 m/sec LVIDs 2D 2.1 2.1 - 4.1 cm AV Peak PG 3.0 mmHg LVPWd 2D 1.0 0.6 - 1.1 cm TR Peak Omar 3.0 m/sec IVSd 2D 1.0 0.6 - 1.1 cm TR Peak PG 36.3 mmHg AoR Diam 2D 2.5 2.0 - 3.7 cm RVSP 39.0 mmHg EDV 2D 61.2 cm3 ESV 2D 9.2 cm3 LA Dimen 2D 3.0 2.3 - 4.0 cm Findings Left Ventricle: Normal left ventricular systolic function. Normal left ventricular cavity size. Normal left ventricular wall thickness. Ejection fraction is visually estimated at 65 %. Tissue Doppler/Mitral Doppler indices are indeterminate in this study due to the presence of afib. Right Ventricle: Normal right ventricular size. Normal right ventricular systolic function. Left Atrium: Upper limit of normal left atrial size. Right Atrium: The right atrium is normal in size. Mitral Valve: Mitral valve leaflets appear mildly thickened. Mild mitral annular calcification. Mild mitral valve regurgitation. Aortic Valve: No significant aortic stenosis or insufficiency. Aortic cusps appear mildly calcified. Tricuspid Valve: Normal appearance of the tricuspid valve. Right ventricular systolic pressure is consistent with mild pulmonary hypertension. Estimated peak PA systolic pressure 40 mmHg. There is mild tricuspid regurgitation. Pulmonic Valve: Normal pulmonic valve appearance. Pericardium: Small pericardial effusion. No echocardiographic evidence to suggest pericardial tamponade. Large left pleural effusion seen. Aorta: Normal aortic root. IVC: Normal size and normal respiratory collapse consistent with normal right atrial pressure. Conclusions Normal left ventricular systolic function. Normal left ventricular cavity size. Normal left ventricular wall thickness. Ejection fraction is visually estimated at 65 %. Tissue Doppler/Mitral Doppler indices are indeterminate in this study due to the presence of afib. Normal right ventricular size. Normal right ventricular systolic function. Upper limit of normal left atrial size. No significant aortic stenosis or insufficiency. Aortic cusps appear mildly calcified. Mitral valve leaflets appear mildly thickened. Mild mitral annular calcification. Mild mitral valve regurgitation. Normal appearance of the tricuspid valve. Right ventricular systolic pressure is consistent with mild pulmonary hypertension. Estimated peak PA systolic pressure 40 mmHg. There is mild tricuspid regurgitation. Normal aortic root. Normal size and normal respiratory collapse consistent with normal right atrial pressure. Small pericardial effusion. No echocardiographic evidence to suggest pericardial tamponade. Large left pleural effusion seen. No Vegetation, masses, or thrombi seen. Electronically Signed By: Leandro Delgado 03-Sep-2017 17:45:40 -0800 Patient Name: HARITHA HUNT Study Date: 03-Sep-2017 [id number]
--- NOTE | 2017-09-03 19:15 | CONS ---
Date/Time of Note Date/Time of Note DATE: 09/03/17 TIME: 19:14 Assessment/Plan Assessment/Plan Additional Assessment/Plan [facility] INPATIENT CONSULTATION NOTE DATE OF SERVICE: 09/03/2017 PLACE OF SERVICE: [place], fifth floor telemetry ASSESSMENT AND PLAN: A very-pleasant 87-year-old lady with multiple comorbidities including prior operations, presenting with a picture that is more consistent with ileus and less consistent with adhesive small bowel obstruction. Patient's abdomen appears to be benign and there is no indication for acute surgical intervention. Explained to the patient and her sister and answered all questions. Patient and family appeared to understand and agreed with plans. Also discussed with Dr. Gayle. With above assessment, I've recommended the followin. Agree with inpatient admission and observation 2. Strict I's and O's 3. Careful monitoring of vital signs 4. Okay from my standpoint to start clear liquid diet and if tolerates by tomorrow, to slowly advance 5. Labs in a.m. 6. Increase activity 7. Pulmonary toilet Thank you very much for having me involved in the care of this very pleasant patient and wonderful family. If you have any questions, please feel free to contact me at [phone]. Nature of presenting problem: Moderate severity Please note that, given the multiple number of diagnoses or management options, the moderate amount and/or complexity of data needed to be reviewed, and moderate risk of complications and/or morbidity or mortality, this qualifies as moderate complexity type of decision-making. Disclaimers: 1. Inadvertent spelling and grammatical errors are likely due to electronic health record (EHR)/dictation software used and do not reflect on the quality of delivered patient care. 2. The electronic timestamp recorded on this note does not necessarily reflect the actual date and time of the visit or the service. 3. Portions of this note may have been created through electronic templates and computer algorithms that might bring in information either from the system or from other physicians and providers. Please note that such information may or may not contain errors, the occurrence of which are outside of my control. In general (but not always) this happens either in the beginning or at the end of the note. The portion of the note that I have created are generally done in 1 continuous block of text, flanked at the beginning and at the end by " ", and entered into one field in the EHR. 4. There may be other unanticipated errors in the note that are outside of my control. I can only attest to the portions of the note that I have created. Updated clinical summary: A very-pleasant 87-year-old lady with multiple comorbidities including prior operations, presenting with a picture that is more consistent with ileus and less consistent with adhesive small bowel obstruction. Comorbidities: 1. Hypertension. 2. Atrial fibrillation. 3. Hyperlipidemia. 4. Hypothyroidism. 5. History of ruptured appendix. 6. Cancer of the breast in 1999, undergoing mastectomy and chemo with a modified right radical mastectomy in 05/2015 completed x-ray therapy and has been followed by Dr. Burrell. 7. 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 8. Undergoing extensive workup here at [facility] in 02/[address] for [address] loss [address] CT imaging no malignancy was detected. 9. Hospitalization in 02/2016, with poor appetite and weight loss. CT scan revealed bilateral pleural effusions. There was no infection, no malignancy as revealed by a thoracentesis. 10. History of a petechial right posterior temporal lobe hemorrhage when pursuing the cause of hallucinations in 03/2016, as well as an old lacunar infarct. 11. Recent colonoscopy has not been performed. CONSULTATION REQUESTED BY: Pato Gayle MD Dear Dr. Gayle, Thank you very much for the opportunity to participate in the care of this very pleasant lady and her wonderful family. HISTORY OF PRESENT ILLNESS: The patient is a very pleasant 87-year-old lady with above-mentioned comorbidities whom we were kindly asked to consult regarding management of possible small bowel obstruction. Patient was admitted through the emergency department on 09/02/2017 for abdominal pain of 2-3 day duration. There was associated nausea and reduced appetite and some vomiting which was nonbloody. Patient's workup included a CT scan of the abdomen and pelvis is suggested possible partial small bowel obstruction as one of the etiologies. I was kindly asked consult. I had a chance to meet with the patient and her family today and do a complete history and physical myself. She reported feeling better since the admission. Her pain had been under adequate control with pain medications. No further nausea or vomiting during the hospital and she believed that she had started passing flatus yesterday and had a bowel movement about 2 days ago. Currently, the patient did not have any fevers or chills, shortness of breath or chest pain, and reported feeling very hungry. ALLERGIES: Codeine MEDICATIONS Documented in the electronic records and reviewed by me. Please see the electronic records for details, as well as details for inpatient medications which were also reviewed by me. SOCIAL HISTORY: The patient lives with family. - Tob; - ETOH; - IVDU FAMILY HISTORY: There are no significant medical, surgical or oncologic issues in the family as reported by the patient or reflected in the chart. REVIEW OF SYSTEMS: Other than mentioned above, there were no other pertinent positives or pertinent negatives in an otherwise complete 14 point review of systems. PHYSICAL EXAMINATION GENERAL: The patient appears to be a very pleasant lady of non- descent lying in bed, appearing stated age, and otherwise in no acute distress. BMI: 18.5 VITAL SIGNS: AVSS (please also see auto important data if available as well as the electronic records) HEENT: Normocephalic and atraumatic. Extraocular muscles and hearing are grossly intact bilaterally and symmetrically. Sclerae are nonicteric. Oral cavity is clear; oral mucosa appear to be pink and moist. Dentition: Fair to poor. NECK: Supple. There is no lymphadenopathy or JVD. There is no submental, submandibular or supraclavicular lymphadenopathy. CHEST: Rises symmetrically with each breath; patient is breathing comfortably. There are no audible wheezes, rales or rhonchi on the gross exam. HEART: Pulse is regular and palpable on the right wrist. Capillary refill is normal. Carotid pulses are palpable bilaterally and symmetrically in the neck. EXTREMITIES: Lower extremities contain no pitting edema around the ankles bilaterally and symmetrically. ABDOMEN: Abdomen is soft, nontender and essentially nondistended. No evidence of ascites, organomegaly, caput medusae, engorged subcutaneous veins, or other abnormalities. There are no peritoneal signs or guarding. SKIN: Appears to be pink and feels warm to touch. NEUROLOGIC: Awake, alert, and follows commands appropriately. LABORATORY DATA: See below IMAGING: See electronic chart. Please note that I've personally reviewed all pertinent available images and I agree in general with their overall reported findings. Consultation Date/Type/Reason Admit Date/Time Sep 03, 2017 at 04:20 Constitutional: poor po Eyes: no complaints ENT: no complaints Respiratory: no complaints Cardiovascular: no complaints Gastrointestinal: decreased appetite, No pain Genitourinary: other (jenkins in place) Musculoskeletal: no complaints Skin: no complaints Neurologic: no complaints Endocrine: no complaints Psychological: nl mood/affect, no complaints Immunologic: no complaints Social History Smoking Status: Never smoker Exam/Review of Systems Vital Signs Vitals Vital Signs Date Time Temp Pulse Resp B/P Pulse Ox O2 Delivery O2 Flow Rate FiO2 09/03/17 16:12 119 09/03/17 15:27 97.4 20 111/55 94 09/03/17 04:05 Nasal Cannula 2.0 Intake and Output 09/02/17 09/02/17 09/03/17 15:00 23:00 07:00 Intake Total 80 ml Output Total 200 ml Balance -120 ml Results Result Diagram: 09/03/17 0641 09/03/17 0641 Results 24 hrs Laboratory Tests Test 09/02/17 21:00 09/03/17 06:41 09/03/17 11:03 Troponin I 0.396 *H White Blood Count 8.4 Red Blood Count 4.37 Hemoglobin 13.7 Hematocrit 41.8 Mean Corpuscular Volume 95.7 Mean Corpuscular Hemoglobin 31.4 Mean Corpuscular Hemoglobin Concent 32.8 Red Cell Distribution Width 13.2 Platelet Count 215 Mean Platelet Volume 10.6 H Neutrophils % 80.4 H Lymphocytes % 5.1 L Monocytes % 13.2 H Eosinophils % 0.5 Basophils % 0.6 Nucleated Red Blood Cells % 0.0 Neutrophils # 6.7 Lymphocytes # 0.4 L Monocytes # 1.1 H Eosinophils # 0.0 Basophils # 0.1 Nucleated Red Blood Cells # 0.0 Prothrombin Time 19.2 H Prothrombin Time Ratio 1.5 INR International Normalized Ratio 1.60 Sodium Level 133 L Potassium Level 4.0 Chloride Level 95 L Carbon Dioxide Level 35 H Anion Gap 7 #L Blood Urea Nitrogen 14 Creatinine 0.70 Glucose Level 91 Calcium Level 8.4 Phosphorus Level 3.1 Magnesium Level 1.9 Total Bilirubin 1.0 Direct Bilirubin 0.00 Indirect Bilirubin 1.0 Aspartate Amino Transf (AST/SGOT) 29 Alanine Aminotransferase (ALT/SGPT) 27 Alkaline Phosphatase 59 Total Protein 6.7 # Albumin 3.2 L Globulin 3.50 H Albumin/Globulin Ratio 0.91 Thyroid Stimulating Hormone (TSH) 1.460 Digoxin Level 1.0 1.0 Medications Medications Current Medications Ondansetron HCl (Zofran Inj) 4 mg Q6H PRN IV NAUSEA AND/OR VOMITING Last administered on 09/02/17 16:27; Admin Dose 4 MG; Start 09/02/17 at 13:00 Famotidine (Pepcid Iv) 20 mg BID IV Last administered on 09/03/17 10:16; Admin Dose 20 MG; Start 09/02/17 at 21:00 Levothyroxine Sodium (Synthroid Iv) 25 mcg DAILY@06 IV ; Start 09/03/17 at 06: 00 Hydralazine HCl 5 mg 5 mg Q6H PRN IV ELEVATED SYSTOLIC BP; Start 09/02/17 at 18:00 Diltiazem HCl (Cardizem-D5W 125 Mg/125 ml Drip) 125 ml @ 5 mls/hr TITRATE IV ; Start 09/02/17 at 18:00 Enoxaparin Sodium 45 mg 45 mg Q24H SC Last administered on 09/03/17 10:28; Admin Dose 45 MG; Start 09/03/17 at 10:00 Dextrose/Sodium Chloride (D5-NS) 1,000 ml @ 75 mls/hr [id number] IV Last administered on 09/03/17 10:16; Admin Dose 75 MLS/HR; Start 09/03/17 at 08:30 NIKO PIERRE M.D. Sep 03, 2017 19:15
[2017-09-04] VITALS (15 sets, daily range): BP systolic 129–187; BP diastolic 55–88; PULSE 60–138; RESP 17–22
[2017-09-04] MEDS: DEXTROSE 5%-0.9% NACL 1,000 ML IV SCH ×2 (02:46→16:47)
[2017-09-04] MEDS: LEVOTHYROXINE 100 MCG VIAL IV SCH (05:57)
[2017-09-04 07:01] LABS: ABNORMAL IP MESSAGE 1; BASOPHIL # 0.1 10^3/ul (0.0-0.1); EOSINOPHILS # 0.1 10^3/ul (0.0-0.5); EOSINOPHILS % 1.3 % (0.0-7.0); HEMATOCRIT 39.9 % (37.0-47.0); HEMOGLOBIN 13.2 g/dl (12.0-16.0); LYMPHOCYTES # 0.4 10^3/ul (0.8-2.9); LYMPHOCYTES % 5.7 % (15.0-51.0); MEAN CORPUSCULAR HEMOGLOBIN 31.9 pg (29.0-33.0); MEAN CORPUSCULAR HGB CONC 33.1 g/dl (32.0-37.0); MEAN CORPUSCULAR VOLUME 96.4 fl (82.0-101.0); MEAN PLATELET VOLUME 10.4 fl (7.4-10.4); MONOCYTE # 0.9 10^3/ul (0.3-0.9); MONOCYTES % 13.7 % (0.0-11.0); NEUTROPHIL # 4.9 10^3/ul (1.6-7.5); NEUTROPHILS % 77.8 % (39.0-77.0); PLATELET COUNT 207 10^3/UL (140-415); RED BLOOD COUNT 4.14 10^6/ul (4.20-5.40); WHITE BLOOD COUNT 6.3 10^3/ul (4.8-10.8)
[2017-09-04 07:02] LABS: POSITIVE DIFF @See below
[2017-09-04 07:13] LABS: INR 1.67; PROTIME 19.8 Sec (12.2-14.2); PT RATIO 1.5
[2017-09-04 07:17] LABS: ALBUMIN 2.9 g/dl (3.3-4.9); ALBUMIN/GLOBULIN RATIO 0.93; BILIRUBIN,INDIRECT 0.7 mg/dl (0-1.1); BILIRUBIN,TOTAL 0.7 mg/dl (0.2-1.3); CREATININE 0.68 mg/dl (0.44-1.00); POTASSIUM 3.5 mmol/L (3.5-5.1)
[2017-09-04 07:21] LABS: MAGNESIUM 1.7 mg/dl (1.7-2.5); PHOSPHORUS 3.2 mg/dl (2.5-4.9)
--- NOTE | 2017-09-04 08:42 | RADRPT ---
PROCEDURE: XR Abdomen. CLINICAL INDICATION: Abdomen pain. TECHNIQUE: AP supine abdomen x-ray. COMPARISON: 09/03/2017. FINDINGS: The bowel gas pattern is normal with no evidence of obstruction. There is a Horne catheter in the bladder. There are no abnormal calcifications overlying the urinary tracts. There are degenerative changes of the spine. IMPRESSION: 1. No evidence of bowel obstruction. 2. Horne catheter in the bladder. 3. Degenerative changes of the spine. RPTAT: QQ .Corey Clark MD, MD Date Time Electronically viewed and signed by .Corey Clark MD, MD on 09/04/2017 08:42 .R/
--- NOTE | 2017-09-04 08:49 | PN ---
Date/Time of Note Date/Time of Note DATE: 09/04/17 TIME: 08:45 Assessment/Plan VTE Prophylaxis VTE Prophylaxis Intervention: other Lines/Catheters IV Catheter Type (from Nrs): Peripheral IV Urinary Cath still in place: No Assessment/Plan Assessment/Plan 1. SBO is resolving, KUB yesterday noted, diet was advanced to clear, add gentle laxative per surgery (per rectal or po) 2. Atrial fib with well controlled ventric response without chest pain, reasonable not to pursue elev troponin given asx and age, await cards follow up comments, will resume coumadin. 3. HBP, controlled 4. Hyperlipidemia, statin was resumed 5. Mild reduced K+, will replete 6. Will need to mobilize pt, PT ordered and asked staff to get her in a chair. 7. I raised issue of code status with pt, she will contemplate and rev with her daughter. Subjective 24 Hr Interval Summary Cardiovascular: No chest pain, No lightheadedness, No orthopenea (mild sob) Gastrointestinal: flatus, other (no formed stoool yet), pain (mild and poorly localized) Genitourinary: other (jenkins is in place) Neurologic: No headache Exam/Review of Systems Vital Signs Vitals Vital Signs Date Time Temp Pulse Resp B/P Pulse Ox O2 Delivery O2 Flow Rate FiO2 09/04/17 08:34 87 09/04/17 08:04 97.8 17 142/69 90 09/04/17 01:24 21 09/03/17 04:05 Nasal Cannula 2.0 Intake and Output 09/03/17 09/03/17 09/04/17 14:59 22:59 06:59 Intake Total 120 ml 1220 ml Output Total 700 ml 700 ml Balance -580 ml 520 ml Exam Neck: No jvd Respiratory: diminished breath sounds Cardiovascular: No irregular rhythm Gastrointestinal: soft, No tender Extremities: No edema Neurological: No focal weakness Results Result Diagram: 09/04/17 0608 09/04/17 0608 Results 24 hrs Laboratory Tests Test 09/03/17 11:03 09/04/17 06:08 Digoxin Level 1.0 White Blood Count 6.3 # Red Blood Count 4.14 L Hemoglobin 13.2 Hematocrit 39.9 Mean Corpuscular Volume 96.4 Mean Corpuscular Hemoglobin 31.9 Mean Corpuscular Hemoglobin Concent 33.1 Red Cell Distribution Width 13.0 Platelet Count 207 Mean Platelet Volume 10.4 Neutrophils % 77.8 H Lymphocytes % 5.7 L Monocytes % 13.7 H Eosinophils % 1.3 Basophils % 1.0 Nucleated Red Blood Cells % 0.0 Neutrophils # 4.9 Lymphocytes # 0.4 L Monocytes # 0.9 Eosinophils # 0.1 Basophils # 0.1 Nucleated Red Blood Cells # 0.0 Prothrombin Time 19.8 H Prothrombin Time Ratio 1.5 INR International Normalized Ratio 1.67 Sodium Level 136 Potassium Level 3.5 Chloride Level 99 Carbon Dioxide Level 31 Anion Gap 10 Blood Urea Nitrogen 11 Creatinine 0.68 Glucose Level 99 Calcium Level 8.0 L Phosphorus Level 3.2 Magnesium Level 1.7 Total Bilirubin 0.7 Direct Bilirubin 0.00 Indirect Bilirubin 0.7 Aspartate Amino Transf (AST/SGOT) 30 Alanine Aminotransferase (ALT/SGPT) 24 Alkaline Phosphatase 57 Total Protein 6.0 L Albumin 2.9 L Globulin 3.10 Albumin/Globulin Ratio 0.93 Medications Medications Current Medications Ondansetron HCl (Zofran Inj) 4 mg Q6H PRN IV NAUSEA AND/OR VOMITING Last administered on 09/02/17 16:27; Admin Dose 4 MG; Start 09/02/17 at 13:00 Famotidine (Pepcid Iv) 20 mg BID IV Last administered on 09/03/17 20:40; Admin Dose 20 MG; Start 09/02/17 at 21:00 Enoxaparin Sodium 45 mg 45 mg Q24H SC Last administered on 09/03/17 10:28; Admin Dose 45 MG; Start 09/03/17 at 10:00 Dextrose/Sodium Chloride 1,000 ml @ 40 mls/hr Q24H IV Last administered on 02:46; Admin Dose 75 MLS/HR; Start 09/03/17 at 08:30 Potassium Chloride (KCl 20 MEQ/50 ML SW) 50 ml @ 25 mls/hr Q2H IVPB ; Start at 09:00; Stop 09/04/17 at 12:59; Status UNV Potassium Chloride (Potassium Chloride Pwd/Soln) 40 meq BID PO ; Start at 09:00; Stop 09/04/17 at 14:00; Status UNV Digoxin (Digoxin) 0.125 mg DAILY@13 PO ; Start 09/04/17 at 13:00; Status UNV Levothyroxine Sodium (Synthroid) 50 mcg DAILY@06 PO ; Start 09/05/17 at 06:00; Status UNV Metoprolol Succinate (Toprol Xl) 12.5 mg BID PO ; Start 09/04/17 at 09:00; Status UNV Nifedipine (Procardia Xl) 30 mg DAILY PO ; Start 09/04/17 at 09:00; Status UNV Atorvastatin Calcium (Lipitor) 10 mg HS PO ; Start 09/04/17 at 21:00; Status UNV CATARINO RAMOS MD Sep 04, 2017 08:49
[2017-09-04] MEDS ORDERED: POTASSIUM CHLORIDE 50 ML IVPB SCH (09:00)
[2017-09-04] MEDS ORDERED: WARFARIN 3 MG TAB PO ONE (09:00)
[2017-09-04] MEDS ORDERED: POTASSIUM CHLORIDE 20 MEQ POWDER FOR ORAL SOLN PO SCH (09:00)
--- NOTE | 2017-09-04 09:14 | CONS ---
Date/Time of Note Date/Time of Note DATE: 09/04/17 TIME: 09:11 Assessment/Plan Assessment/Plan Chief Complaint/Hosp Course # NSTEMI- no acute change on ekg, troponin elevation downtrending. likely type ii nstemi from demand from SBO. Pt with many comorbid conditions making her high risk for any invasive cardiac testing, at this time recommend cont medical mgmt. no wma on echo - cont statin - add low dose asa if abd process improves and definitely does not require surgical intervention. - low dose bb # abd pain- SBO on ct scan, improved. did not tolerate NG tube placement. - gi consulting, defer for mgmt # afib- chronic, rate controlled - cont bb, digoxin given stable bp - cont lovenox, restart coumadin if no procedures planned and clinically improved. # Pleural effusions- negative previous cytology with thoracentesis, has chronic diastolic hf - gentle hydration for possible GI infection/sbo, avoid diuresis given poor po intake - bp control # pericardial effusion- small anterior chronic - cont med mgmt, no interval change or hd significance # HTN - cont home meds Problems: Consultation Date/Type/Reason Admit Date/Time Sep 03, 2017 at 04:20 Initial Consult Date 09/02/17 Type of Consultation: cardiology Referring Provider: CATARINO RAMOS MD 24 HR Interval Summary Free Text/Dictation no acute events. denies any chest pain, sob, palpitations. pt in bed, states has not been up walking. states did tolerate broth, liquids yesterday. no n/v. still with midl upper abd pain she states. tele reviewed: afib Detailed Summary Respiratory: no complaints Cardiovascular: no complaints Gastrointestinal: pain Exam/Review of Systems Vital Signs Vitals Vital Signs Date Time Temp Pulse Resp B/P Pulse Ox O2 Delivery O2 Flow Rate FiO2 09/04/17 08:34 87 09/04/17 08:04 97.8 17 142/69 90 09/04/17 01:24 21 09/03/17 04:05 Nasal Cannula 2.0 Intake and Output 09/03/17 09/03/17 09/04/17 14:59 22:59 06:59 Intake Total 120 ml 1220 ml Output Total 700 ml 700 ml Balance -580 ml 520 ml Exam Constitutional: alert, oriented, frail Psych: no complaints Head: normocephalic Eyes: EOMI ENMT: op clear poor dentition Respiratory: other (decrease bs bilatearl base) Cardiovascular: irregular rhythm, nl pulses, systolic murmur Gastrointestinal minimal ttp, no guarding/rebound Musculoskeletal: no sig edema, Extremities: normal pulses, wwp Neurological: ACETONE BUTTON PASTER II-XII intact, nl mental status, nl speech Results Result Diagram: 09/04/17 0608 09/04/17 0608 Results 24 hrs Laboratory Tests Test 09/03/17 11:03 09/04/17 06:08 Digoxin Level 1.0 White Blood Count 6.3 # Red Blood Count 4.14 L Hemoglobin 13.2 Hematocrit 39.9 Mean Corpuscular Volume 96.4 Mean Corpuscular Hemoglobin 31.9 Mean Corpuscular Hemoglobin Concent 33.1 Red Cell Distribution Width 13.0 Platelet Count 207 Mean Platelet Volume 10.4 Neutrophils % 77.8 H Lymphocytes % 5.7 L Monocytes % 13.7 H Eosinophils % 1.3 Basophils % 1.0 Nucleated Red Blood Cells % 0.0 Neutrophils # 4.9 Lymphocytes # 0.4 L Monocytes # 0.9 Eosinophils # 0.1 Basophils # 0.1 Nucleated Red Blood Cells # 0.0 Prothrombin Time 19.8 H Prothrombin Time Ratio 1.5 INR International Normalized Ratio 1.67 Sodium Level 136 Potassium Level 3.5 Chloride Level 99 Carbon Dioxide Level 31 Anion Gap 10 Blood Urea Nitrogen 11 Creatinine 0.68 Glucose Level 99 Calcium Level 8.0 L Phosphorus Level 3.2 Magnesium Level 1.7 Total Bilirubin 0.7 Direct Bilirubin 0.00 Indirect Bilirubin 0.7 Aspartate Amino Transf (AST/SGOT) 30 Alanine Aminotransferase (ALT/SGPT) 24 Alkaline Phosphatase 57 Total Protein 6.0 L Albumin 2.9 L Globulin 3.10 Albumin/Globulin Ratio 0.93 Medications Medications Current Medications Ondansetron HCl (Zofran Inj) 4 mg Q6H PRN IV NAUSEA AND/OR VOMITING Last administered on 09/02/17 16:27; Admin Dose 4 MG; Start 09/02/17 at 13:00 Famotidine (Pepcid Iv) 20 mg BID IV Last administered on 09/03/17 20:40; Admin Dose 20 MG; Start 09/02/17 at 21:00 Enoxaparin Sodium 45 mg 45 mg Q24H SC Last administered on 09/03/17 10:28; Admin Dose 45 MG; Start 09/03/17 at 10:00 Dextrose/Sodium Chloride (D5-NS) 1,000 ml @ 40 mls/hr Q24H IV Last administered on 09/04/17t 02:46; Admin Dose 75 MLS/HR; Start 09/03/17 at 08:30 Potassium Chloride (Potassium Chloride Pwd/Soln) 40 meq BID PO ; Start at 09:00; Stop 09/04/17 at 14:00 Digoxin (Digoxin) 0.125 mg DAILY@13 PO ; Start 09/04/17 at 13:00 Levothyroxine Sodium (Synthroid) 50 mcg DAILY@06 PO ; Start 09/05/17 at 06:00 Metoprolol Succinate (Toprol Xl) 12.5 mg BID PO ; Start 09/04/17 at 09:00 Nifedipine (Procardia Xl) 30 mg DAILY PO ; Start 09/04/17 at 09:00 Atorvastatin Calcium 10 mg 10 mg HS PO ; Start 09/04/17 at 21:00 Potassium Chloride/Dextrose (KCl/D5W) 110 ml @ 55 mls/hr Q2H IV ; Start at 10:00; Stop 09/04/17 at 13:59 Procedures Procedures kub report reviewed in [facility] Tim Sep 04, 2017 09:14
[2017-09-04] MEDS: FAMOTIDINE 20 MG INJ IV SCH ×2 (09:18→21:26)
[2017-09-04] MEDS: ENOXAPARIN 60 MG/0.6 ML SYG SC SCH (09:19)
[2017-09-04] MEDS: NIFEdipine (XL) 30 MG TAB PO SCH (09:45)
[2017-09-04] MEDS: METOPROLOL (XL) 25 MG TAB PO SCH ×2 (09:45→21:27)
[2017-09-04] MEDS: POTASSIUM CHLORIDE 20 MEQ in DEXTROSE 5% 100 ML IV SCH ×2 (11:18→14:07)
[2017-09-04] MEDS: DIGOXIN 0.125 MG TAB PO SCH (12:28)
--- NOTE | 2017-09-04 12:37 | CONS ---
Date/Time of Note Date/Time of Note DATE: 09/04/17 TIME: 12:34 Consult Date/Type/Reason Admit Date/Time Sep 03, 2017 at 04:20 Initial Consult Date 09/02/17 Type of Consultation: GI Ordering Provider: CATARINO RAMOS MD Subjective Fleets enema not given Tolerating clear liquids Denies abdominal pain, nausea or vomiting Objective Vital Signs Date Time Temp Pulse Resp B/P Pulse Ox O2 Delivery O2 Flow Rate FiO2 09/04/17 12:19 60 09/04/17 11:40 98.8 17 178/81 93 09/04/17 09:54 Nasal Cannula 09/04/17 01:24 21 09/03/17 04:05 2.0 Abdomen: soft, non tender, +bs Intake and Output 09/03/17 09/03/17 09/04/17 15:00 23:00 07:00 Intake Total 120 ml 1220 ml Output Total 700 ml 700 ml Balance -580 ml 520 ml Results/Medications Result Diagram: 09/04/17 0608 09/04/17 0608 Results 24 hrs Laboratory Tests Test 09/04/17 06:08 White Blood Count 6.3 # Red Blood Count 4.14 L Hemoglobin 13.2 Hematocrit 39.9 Mean Corpuscular Volume 96.4 Mean Corpuscular Hemoglobin 31.9 Mean Corpuscular Hemoglobin Concent 33.1 Red Cell Distribution Width 13.0 Platelet Count 207 Mean Platelet Volume 10.4 Neutrophils % 77.8 H Lymphocytes % 5.7 L Monocytes % 13.7 H Eosinophils % 1.3 Basophils % 1.0 Nucleated Red Blood Cells % 0.0 Neutrophils # 4.9 Lymphocytes # 0.4 L Monocytes # 0.9 Eosinophils # 0.1 Basophils # 0.1 Nucleated Red Blood Cells # 0.0 Prothrombin Time 19.8 H Prothrombin Time Ratio 1.5 INR International Normalized Ratio 1.67 Sodium Level 136 Potassium Level 3.5 Chloride Level 99 Carbon Dioxide Level 31 Anion Gap 10 Blood Urea Nitrogen 11 Creatinine 0.68 Glucose Level 99 Calcium Level 8.0 L Phosphorus Level 3.2 Magnesium Level 1.7 Total Bilirubin 0.7 Direct Bilirubin 0.00 Indirect Bilirubin 0.7 Aspartate Amino Transf (AST/SGOT) 30 Alanine Aminotransferase (ALT/SGPT) 24 Alkaline Phosphatase 57 Total Protein 6.0 L Albumin 2.9 L Globulin 3.10 Albumin/Globulin Ratio 0.93 Medications Current Medications Ondansetron HCl (Zofran Inj) 4 mg Q6H PRN IV NAUSEA AND/OR VOMITING Last administered on 09/02/17 16:27; Admin Dose 4 MG; Start 09/02/17 at 13:00 Famotidine (Pepcid Iv) 20 mg BID IV Last administered on 09/04/17 09:18; Admin Dose 20 MG; Start 09/02/17 at 21:00 Enoxaparin Sodium 45 mg 45 mg Q24H SC Last administered on 09/04/17 09:19; Admin Dose 45 MG; Start 09/03/17 at 10:00 Dextrose/Sodium Chloride (D5-NS) 1,000 ml @ 40 mls/hr Q24H IV Last administered on 09/04/17 02:46; Admin Dose 75 MLS/HR; Start 09/03/17 at 08:30 Potassium Chloride (Potassium Chloride Pwd/Soln) 40 meq BID PO Last administered on 09/04/17 09:44; Admin Dose 40 MEQ; Start 09/04/17 at 09:00; Stop 09/04/17 at 14:00 Digoxin (Digoxin) 0.125 mg DAILY@13 PO Last administered on 09/04/17 12:28; Admin Dose 0.125 MG; Start 09/04/17 at 13:00 Levothyroxine Sodium (Synthroid) 50 mcg DAILY@06 PO ; Start 09/05/17 at 06:00 Metoprolol Succinate (Toprol Xl) 12.5 mg BID PO Last administered on 09:45; Admin Dose 12.5 MG; Start 09/04/17 at 09:00 Nifedipine (Procardia Xl) 30 mg DAILY PO Last administered on 09/04/17 09:45 ; Admin Dose 30 MG; Start 09/04/17 at 09:00 Atorvastatin Calcium 10 mg 10 mg HS PO ; Start 09/04/17 at 21:00 Potassium Chloride/Dextrose (KCl/D5W) 110 ml @ 55 mls/hr Q2H IV Last administered on 09/04/17 11:18; Admin Dose 55 MLS/HR; Start 09/04/17 at 10:00 ; Stop 09/04/17 at 13:59 Sodium Biphosphate/ Sodium Phosphate (Fleet Enema) 133 ml ONCE ONCE MD ; Start 09/04/17 at 13:00; Stop 09/04/17 at 13:01; Status UNV Assessment/Plan Chief Complaint/Hosp Course Impression: SBO Clinically improved Plan: Give fleets enema to clean out stool-not done yesterday Repeat KUB/Upright in am Advance to full liquids with supplements per dietary Problems: JULIAN POWELL MD Sep 04, 2017 12:37
[2017-09-04] MEDS ORDERED: NA PHOSPHATE/BIPHOS 133 ML ENEMA PR ONE (13:00)
--- NOTE | 2017-09-04 18:48 | PN ---
Date/Time of Note Date/Time of Note DATE: 09/04/17 TIME: 10:08 Assessment/Plan Lines/Catheters IV Catheter Type (from [facility]): Peripheral IV Horne in Place (from [facility]): Yes Assessment/Plan Assessment/Plan [facility] Progress Note Date of Service: 09/04/2017 Location of Service: [facility] fifth floor telemetry Today's Assessment & Plan: Overall stable and doing relatively well. No obvious indication of high-grade bowel obstruction. Abdomen remains benign. No indications of major postoperative complications or wound problems. No indication for acute surgical intervention. Awaiting further return of bowel function. Previous assessments that applies today: A very-pleasant 87-year-old lady with multiple comorbidities including prior operations, presenting with a picture that is more consistent with ileus and less consistent with adhesive small bowel obstruction. Patient's abdomen appears to be benign and there is no indication for acute surgical intervention. With above assessment, I've recommended the followin. Continue in-house care 2. Strict I's and O's 3. Careful monitoring of vital signs 4. Slowly advance diet to regular 5. Labs in a.m. 6. Increase activity 7. Pulmonary toilet Thank you very much for having me involved in the care of this very pleasant patient and wonderful family. If you have any questions, please feel free to contact me at [phone]. Nature of presenting problem: Moderate severity Please note that, given the multiple number of diagnoses or management options, the moderate amount and/or complexity of data needed to be reviewed, and moderate risk of complications and/or morbidity or mortality, this qualifies as moderate complexity type of decision-making. Disclaimers: 1. Inadvertent spelling and grammatical errors are likely due to electronic health record (EHR)/dictation software used and do not reflect on the quality of delivered patient care. 2. The electronic timestamp recorded on this note does not necessarily reflect the actual date and time of the visit or the service. 3. Portions of this note may have been created through electronic templates and computer algorithms that might bring in information either from the system or from other physicians and providers. Please note that such information may or may not contain errors, the occurrence of which are outside of my control. In general (but not always) this happens either in the beginning or at the end of the note. The portion of the note that I have created are generally done in 1 continuous block of text, flanked at the beginning and at the end by " ", and entered into one field in the EHR. 4. There may be other unanticipated errors in the note that are outside of my control. I can only attest to the portions of the note that I have created. Updated clinical summary: A very-pleasant 87-year-old lady with multiple comorbidities including prior operations, presenting with a picture that is more consistent with ileus and less consistent with adhesive small bowel obstruction. Comorbidities: 1. Hypertension. 2. Atrial fibrillation. 3. Hyperlipidemia. 4. Hypothyroidism. 5. History of ruptured appendix. 6. Cancer of the breast in 1999, undergoing mastectomy and chemo with a modified right radical mastectomy in 05/2015 completed x-ray therapy and has been followed by Dr. Burrell. 7. 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 8. Undergoing extensive workup here at [facility] in 02/[address] imaging no malignancy was detected. 9. Hospitalization in 02/2016, with poor appetite and weight loss. CT scan revealed bilateral pleural effusions. There was no infection, no malignancy as revealed by a thoracentesis. 10. History of a petechial right posterior temporal lobe hemorrhage when pursuing the cause of hallucinations in 03/2016, as well as an old lacunar infarct. 11. Recent colonoscopy has not been performed. Subjective: No major events or complaints; reports feeling improved; no abd pain and under control with medications; no n/v/d; no sob or cp; + bowel activity; + activity Objective: Vitals: See below Exam: GENERAL: On exam, the patient was laying in bed and appeared to be comfortable and in no acute distress. ABDOMEN: Soft, nontender and nondistended. There are no peritoneal signs or guarding. SKIN: Skin appears to be pink and feels warm to touch. NEUROLOGIC: Patient is awake, alert, and follows commands appropriately. Exam/Review of Systems Vital Signs Vitals Vital Signs Date Time Temp Pulse Resp B/P Pulse Ox O2 Delivery O2 Flow Rate FiO2 09/04/17 16:30 138 09/04/17 16:00 22 157/68 09/04/17 15:24 97.5 98 09/04/17 09:54 Nasal Cannula 09/04/17 01:24 21 09/03/17 04:05 2.0 Intake and Output 09/03/17 09/03/17 09/04/17 14:59 22:59 06:59 Intake Total 120 ml 1220 ml Output Total 700 ml 700 ml Balance -580 ml 520 ml Results Result Diagram: 09/04/17 0608 09/04/17 0608 NIKO PIERRE M.D. Sep 04, 2017 18:48
[2017-09-04] MEDS: ATORVASTATIN 10 MG TAB PO SCH (21:27)
[2017-09-05] VITALS (12 sets, daily range): BP systolic 115–170; BP diastolic 56–93; PULSE 66–92; RESP 16–20
[2017-09-05 06:28] LABS: ABNORMAL IP MESSAGE 1; BASOPHIL # 0.1 10^3/ul (0.0-0.1); BASOPHILS % 0.6 % (0.0-2.0); EOSINOPHILS # 0.1 10^3/ul (0.0-0.5); EOSINOPHILS % 0.6 % (0.0-7.0); HEMATOCRIT 42.6 % (37.0-47.0); HEMOGLOBIN 14.1 g/dl (12.0-16.0); LYMPHOCYTES # 0.5 10^3/ul (0.8-2.9); LYMPHOCYTES % 5.6 % (15.0-51.0); MEAN CORPUSCULAR HEMOGLOBIN 32.2 pg (29.0-33.0); MEAN CORPUSCULAR HGB CONC 33.1 g/dl (32.0-37.0); MEAN CORPUSCULAR VOLUME 97.3 fl (82.0-101.0); MEAN PLATELET VOLUME 10.4 fl (7.4-10.4); MONOCYTE # 1.1 10^3/ul (0.3-0.9); MONOCYTES % 12.6 % (0.0-11.0); NEUTROPHIL # 6.7 10^3/ul (1.6-7.5); NEUTROPHILS % 80.1 % (39.0-77.0); PLATELET COUNT 190 10^3/UL (140-415); RED BLOOD COUNT 4.38 10^6/ul (4.20-5.40); RED CELL DISTRIBUTION WIDTH 12.8 % (11.5-14.5); WHITE BLOOD COUNT 8.4 10^3/ul (4.8-10.8)
[2017-09-05] MEDS: LEVOTHYROXINE 50 MCG TAB PO SCH (06:34)
[2017-09-05 06:42] LABS: POSITIVE DIFF @See below
[2017-09-05 07:16] LABS: CALCIUM 8.4 mg/dl (8.4-10.2); CREATININE 0.61 mg/dl (0.44-1.00); MAGNESIUM 1.5 mg/dl (1.7-2.5); PHOSPHORUS 3.8 mg/dl (2.5-4.9); POTASSIUM 4.5 mmol/L (3.5-5.1)
--- NOTE | 2017-09-05 07:58 | CONS ---
Date/Time of Note Date/Time of Note DATE: 09/05/17 TIME: 07:54 Consult Date/Type/Reason Admit Date/Time Sep 03, 2017 at 04:20 Initial Consult Date 09/02/17 Type of Consultation: GI Ordering Provider: CATARINO RAMOS MD Subjective Feels better Denies abdominal pain Describes substantial results from fleets enema Tolerating full liquids Objective Vital Signs Date Time Temp Pulse Resp B/P Pulse Ox O2 Delivery O2 Flow Rate FiO2 09/05/17 04:34 67 09/05/17 03:52 98.3 20 131/65 100 09/04/17 23:41 Nasal Cannula 3.0 09/04/17 01:24 21 Abdomen: soft, non tender, + bs Intake and Output 09/04/17 09/04/17 09/05/17 15:00 23:00 07:00 Intake Total 110 ml 190 ml 500 ml Balance 110 ml 190 ml 500 ml Results/Medications Result Diagram: 09/05/17 0605 09/05/17 0605 Results 24 hrs Laboratory Tests Test 09/05/17 06:05 White Blood Count 8.4 # Red Blood Count 4.38 Hemoglobin 14.1 Hematocrit 42.6 Mean Corpuscular Volume 97.3 Mean Corpuscular Hemoglobin 32.2 Mean Corpuscular Hemoglobin Concent 33.1 Red Cell Distribution Width 12.8 Platelet Count 190 Mean Platelet Volume 10.4 Neutrophils % 80.1 H Lymphocytes % 5.6 L Monocytes % 12.6 H Eosinophils % 0.6 Basophils % 0.6 Nucleated Red Blood Cells % 0.0 Neutrophils # 6.7 Lymphocytes # 0.5 L Monocytes # 1.1 H Eosinophils # 0.1 Basophils # 0.1 Nucleated Red Blood Cells # 0.0 Activated Partial Thromboplast Time 32.4 Sodium Level 139 Potassium Level 4.5 Chloride Level 100 Carbon Dioxide Level 30 Anion Gap 14 Blood Urea Nitrogen 8 Creatinine 0.61 Glucose Level 90 Calcium Level 8.4 Phosphorus Level 3.8 Magnesium Level 1.5 L Medications Current Medications Ondansetron HCl (Zofran Inj) 4 mg Q6H PRN IV NAUSEA AND/OR VOMITING Last administered on 09/02/17 16:27; Admin Dose 4 MG; Start 09/02/17 at 13:00 Famotidine (Pepcid Iv) 20 mg BID IV Last administered on 09/04/17 21:26; Admin Dose 20 MG; Start 09/02/17 at 21:00 Enoxaparin Sodium (Lovenox) 45 mg Q24H SC Last administered on 09/04/17 09:19 ; Admin Dose 45 MG; Start 09/03/17 at 10:00 Digoxin (Digoxin) 0.125 mg DAILY@13 PO Last administered on 09/04/17 12:28; Admin Dose 0.125 MG; Start 09/04/17 at 13:00 Levothyroxine Sodium (Synthroid) 50 mcg DAILY@06 PO Last administered on 06:34; Admin Dose 50 MCG; Start 09/05/17 at 06:00 Metoprolol Succinate (Toprol Xl) 12.5 mg BID PO Last administered on 21:27; Admin Dose 12.5 MG; Start 09/04/17 at 09:00 Nifedipine (Procardia Xl) 30 mg DAILY PO Last administered on 09/04/17 09:45 ; Admin Dose 30 MG; Start 09/04/17 at 09:00 Atorvastatin Calcium (Lipitor) 10 mg HS PO Last administered on 09/04/17 21: 27; Admin Dose 10 MG; Start 09/04/17 at 21:00 Spironolactone (Aldactone) 25 mg DAILY PO ; Start 09/05/17 at 09:00; Status UNV Furosemide (Lasix) 40 mg DAILY PO ; Start 09/05/17 at 09:00; Status UNV Potassium Chloride 30 meq 30 meq ONCE ONCE PO ; Start 09/05/17 at 08:00; Stop 09/05/17 at 08:01; Status UNV Magnesium Sulfate/ Dextrose (Magnesium Sulfate/D5W) 106 ml @ 35.333 mls/ hr ONCE ONCE IVPB ; Start 09/05/17 at 08:00; Stop 09/05/17 at 10:59; Status UNV Assessment/Plan Chief Complaint/Hosp Course Impression: SBO Clinically improved Plan: Await repeat KUB/Upright this am Advance to regular diet pending XRay results Problems: JULIAN POWELL MD Sep 05, 2017 07:57
[2017-09-05] MEDS ORDERED: FUROSEMIDE 20 MG TAB PO SCH (08:00)
[2017-09-05] MEDS ORDERED: POTASSIUM CHLORIDE (SR) 10 MEQ TAB PO ONE (08:00)
--- NOTE | 2017-09-05 08:01 | PN ---
Date/Time of Note Date/Time of Note DATE: 09/05/17 TIME: 07:55 Assessment/Plan VTE Prophylaxis VTE Prophylaxis Intervention: LMWH Lines/Catheters IV Catheter Type (from Nrsg): Peripheral IV Urinary Cath still in place: No Assessment/Plan Assessment/Plan 1. SBO resolving, cause unclear, adv diet per gi or surg 2. Atrial fib with variable rate, Beta dav increased 3. Mild sob sec to mild chf, diuretics resumed, with angina, will rev with cardiology again whether to pursue elec trop. 4. Raised issue of ECF with pt rather then dc home, case management to see 5. BP is controlled 6. Await prox re--dc lovenox and coumadin dose. 7. Apprec gi and surg follow up 8. Urinary freq, to check post void residual Subjective 24 Hr Interval Summary Respiratory: shortness of breath (mild) Cardiovascular: No chest pain Gastrointestinal: no complaints, No nausea, No pain, No vomiting Genitourinary: other (frequent urination) Neurologic: No confusion Exam/Review of Systems Vital Signs Vitals Vital Signs Date Time Temp Pulse Resp B/P Pulse Ox O2 Delivery O2 Flow Rate FiO2 09/05/17 04:34 67 09/05/17 03:52 98.3 20 131/65 100 09/04/17 23:41 Nasal Cannula 3.0 09/04/17 01:24 21 Intake and Output 09/04/17 09/04/17 09/05/17 14:59 22:59 06:59 Intake Total 110 ml 190 ml 500 ml Balance 110 ml 190 ml 500 ml Exam Neck: jvd (hjr is present) Cardiovascular: irregular rhythm Gastrointestinal: soft Extremities: No edema (and no calf tend) Results Result Diagram: 09/05/1760409/05/17604 Results 24 hrs Laboratory Tests Test 09/05/17 06:05 White Blood Count 8.4 # Red Blood Count 4.38 Hemoglobin 14.1 Hematocrit 42.6 Mean Corpuscular Volume 97.3 Mean Corpuscular Hemoglobin 32.2 Mean Corpuscular Hemoglobin Concent 33.1 Red Cell Distribution Width 12.8 Platelet Count 190 Mean Platelet Volume 10.4 Neutrophils % 80.1 H Lymphocytes % 5.6 L Monocytes % 12.6 H Eosinophils % 0.6 Basophils % 0.6 Nucleated Red Blood Cells % 0.0 Neutrophils # 6.7 Lymphocytes # 0.5 L Monocytes # 1.1 H Eosinophils # 0.1 Basophils # 0.1 Nucleated Red Blood Cells # 0.0 Activated Partial Thromboplast Time 32.4 Sodium Level 139 Potassium Level 4.5 Chloride Level 100 Carbon Dioxide Level 30 Anion Gap 14 Blood Urea Nitrogen 8 Creatinine 0.61 Glucose Level 90 Calcium Level 8.4 Phosphorus Level 3.8 Magnesium Level 1.5 L Medications Medications Current Medications Ondansetron HCl (Zofran Inj) 4 mg Q6H PRN IV NAUSEA AND/OR VOMITING Last administered on 09/02/17 16:27; Admin Dose 4 MG; Start 09/02/17 at 13:00 Famotidine (Pepcid Iv) 20 mg BID IV Last administered on 09/04/17 21:26; Admin Dose 20 MG; Start 09/02/17 at 21:00 Enoxaparin Sodium (Lovenox) 45 mg Q24H SC Last administered on 09/04/17 09:19 ; Admin Dose 45 MG; Start 09/03/17 at 10:00 Digoxin (Digoxin) 0.125 mg DAILY@13 PO Last administered on 09/04/17 12:28; Admin Dose 0.125 MG; Start 09/04/17 at 13:00 Levothyroxine Sodium (Synthroid) 50 mcg DAILY@06 PO Last administered on 06:34; Admin Dose 50 MCG; Start 09/05/17 at 06:00 Metoprolol Succinate (Toprol Xl) 12.5 mg BID PO Last administered on 21:27; Admin Dose 12.5 MG; Start 09/04/17 at 09:00 Nifedipine (Procardia Xl) 30 mg DAILY PO Last administered on 09/04/17 09:45 ; Admin Dose 30 MG; Start 09/04/17 at 09:00 Atorvastatin Calcium (Lipitor) 10 mg HS PO Last administered on 09/04/17 21: 27; Admin Dose 10 MG; Start 09/04/17 at 21:00 Spironolactone (Aldactone) 25 mg DAILY PO ; Start 09/05/17 at 09:00; Status UNV Furosemide (Lasix) 40 mg DAILY PO ; Start 09/05/17 at 09:00; Status UNV Potassium Chloride 30 meq 30 meq ONCE ONCE PO ; Start 09/05/17 at 08:00; Stop 09/05/17 at 08:01; Status UNV Magnesium Sulfate/ Dextrose (Magnesium Sulfate/D5W) 106 ml @ 35.333 mls/ hr ONCE ONCE IVPB ; Start 09/05/17 at 08:00; Stop 09/05/17 at 10:59; Status UNV CATARINO RAMOS MD Sep 05, 2017 08:01
[2017-09-05] MEDS ORDERED: FUROSEMIDE 40 MG TAB PO SCH (08:06)
[2017-09-05] MEDS ORDERED: MAGNESIUM SULFATE 3 GM in DEXTROSE 5% 100 ML IVPB ONE (09:00)
[2017-09-05] MEDS: NIFEdipine (XL) 30 MG TAB PO SCH (10:05)
[2017-09-05] MEDS: FAMOTIDINE 20 MG INJ IV SCH (10:06)
[2017-09-05] MEDS: METOPROLOL (XL) 25 MG TAB PO SCH ×2 (10:06→20:45)
[2017-09-05] MEDS: SPIRONOLACTONE 25 MG TAB PO SCH (10:06)
[2017-09-05] MEDS: ENOXAPARIN 60 MG/0.6 ML SYG SC SCH (10:08)
[2017-09-05 10:17] LABS: INR 2.78; PROTIME 29.7 Sec (12.2-14.2); PT RATIO 2.3
--- NOTE | 2017-09-05 10:50 | RADRPT ---
PROCEDURE: XR Abdomen. CLINICAL INDICATION: Small bowel obstruction TECHNIQUE: AP abdomen x-ray. COMPARISON: None. FINDINGS: There is a nonobstructive bowel gas pattern. At least 3 possible left renal calculi are identified measuring up to 9 mm. Osseous and soft tissue structures are unremarkable. IMPRESSION: Nonobstructive bowel gas pattern. At least 3 possible left renal calculi are identified measuring up to 9 mm. RPTAT: EE Physician Ruben Date Time Electronically viewed and signed by Taj Pena Physician on 09/05/2017 10:49 RA/
[2017-09-05] MEDS: DIGOXIN 0.125 MG TAB PO SCH (13:29)
--- NOTE | 2017-09-05 20:17 | PN ---
Date/Time of Note Date/Time of Note DATE: 09/05/17 TIME: 20:16 Assessment/Plan Lines/Catheters IV Catheter Type (from [facility]): Peripheral IV Horne in Place (from [facility]): No Assessment/Plan Assessment/Plan [facility] Progress Note Date of Service: 09/05/2017 Location of Service: [facility] fifth floor telemetry Today's Assessment & Plan: Overall stable and doing relatively well. No obvious indication of high-grade bowel obstruction. Abdomen remains benign. No indications of major postoperative complications or wound problems. No indication for acute surgical intervention. Awaiting further return of bowel function. Previous assessments that applies today: A very-pleasant 87-year-old lady with multiple comorbidities including prior operations, presenting with a picture that is more consistent with ileus and less consistent with adhesive small bowel obstruction. Patient's abdomen appears to be benign and there is no indication for acute surgical intervention. With above assessment, I've recommended the followin. Continue in-house care 2. Strict I's and O's 3. Careful monitoring of vital signs 4. Continue regular diet 5. Labs in a.m. 6. Increase activity 7. Pulmonary toilet Thank you very much for having me involved in the care of this very pleasant patient and wonderful family. If you have any questions, please feel free to contact me at [phone]. Nature of presenting problem: Moderate severity Please note that, given the multiple number of diagnoses or management options, the moderate amount and/or complexity of data needed to be reviewed, and moderate risk of complications and/or morbidity or mortality, this qualifies as moderate complexity type of decision-making. Disclaimers: 1. Inadvertent spelling and grammatical errors are likely due to electronic health record (EHR)/dictation software used and do not reflect on the quality of delivered patient care. 2. The electronic timestamp recorded on this note does not necessarily reflect the actual date and time of the visit or the service. 3. Portions of this note may have been created through electronic templates and computer algorithms that might bring in information either from the system or from other physicians and providers. Please note that such information may or may not contain errors, the occurrence of which are outside of my control. In general (but not always) this happens either in the beginning or at the end of the note. The portion of the note that I have created are generally done in 1 continuous block of text, flanked at the beginning and at the end by " ", and entered into one field in the EHR. 4. There may be other unanticipated errors in the note that are outside of my control. I can only attest to the portions of the note that I have created. Updated clinical summary: A very-pleasant 87-year-old lady with multiple comorbidities including prior operations, presenting with a picture that is more consistent with ileus and less consistent with adhesive small bowel obstruction. Comorbidities: 1. Hypertension. 2. Atrial fibrillation. 3. Hyperlipidemia. 4. Hypothyroidism. 5. History of ruptured appendix. 6. Cancer of the breast in 1999, undergoing mastectomy and chemo with a modified right radical mastectomy in 05/2015 completed x-ray therapy and has been followed by Dr. Burrell. 7. 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 8. Undergoing extensive workup here at [facility] in 02/[address] imaging no malignancy was detected. 9. Hospitalization in 02/2016, with poor appetite and weight loss. CT scan revealed bilateral pleural effusions. There was no infection, no malignancy as revealed by a thoracentesis. 10. History of a petechial right posterior temporal lobe hemorrhage when pursuing the cause of hallucinations in 03/2016, as well as an old lacunar infarct. 11. Recent colonoscopy has not been performed. Subjective: No major events or complaints; reports feeling ok; no abd pain and under control with medications; no n/v/d; no sob or cp; + bowel activity; + activity with assist Objective: Vitals: See below Exam: GENERAL: On exam, the patient was laying in bed and appeared to be comfortable and in no acute distress. ABDOMEN: Soft, nontender and nondistended. There are no peritoneal signs or guarding. SKIN: Skin appears to be pink and feels warm to touch. NEUROLOGIC: Patient is awake, alert, and follows commands appropriately. Exam/Review of Systems Vital Signs Vitals Vital Signs Date Time Temp Pulse Resp B/P Pulse Ox O2 Delivery O2 Flow Rate FiO2 09/05/17 16:54 66 09/05/17 15:33 98.2 20 125/60 98 09/05/17 08:00 Nasal Cannula 3.0 09/04/17 01:24 21 Intake and Output 09/04/17 09/04/17 09/05/17 15:00 23:00 07:00 Intake Total 110 ml 190 ml 500 ml Balance 110 ml 190 ml 500 ml Results Result Diagram: 09/05/17 0605 09/05/17 0605 NIKO PIERRE M.D. Sep 05, 2017 20:17
[2017-09-05] MEDS: ATORVASTATIN 10 MG TAB PO SCH (20:44)
[2017-09-06] VITALS (20 sets, daily range): BP systolic 126–192; BP diastolic 58–82; PULSE 71–180; RESP 18–28
[2017-09-06] MEDS: SPIRONOLACTONE 25 MG TAB PO SCH (04:00)
[2017-09-06] MEDS ORDERED: FUROSEMIDE 20 MG INJ IV ONE ×2 (05:30→06:00)
[2017-09-06] MEDS: LEVOTHYROXINE 50 MCG TAB PO SCH (05:43)
[2017-09-06] MEDS ORDERED: ALBUTEROL/IPRATROPIUM (NEB) 3 ML AMP HHN ONE (05:58)
[2017-09-06] MEDS ORDERED: DILTIAZEM 25 MG INJ ONE (06:15)
[2017-09-06 06:29] LABS: AADO2 Arterial 330.1 mmHg (7.0-24.0); Allen Test ACCEPTAB; Arterial Base Excess 3.7 mmol/L (-3.0-3); Arterial COHb 0.3 % (0.0-3.0); Arterial Fraction of Oxyhgb 99.3 % (93.0-99.0); Arterial HCO3 28.3 mmol/L (22.0-26.0); Arterial MetHb 0.2 % (0.0-1.5); Arterial Total Hemglobin 15.2 g/dl (12.0-18.0); MODE MASK - NRB
[2017-09-06] MEDS ORDERED: DILTIAZEM 25 MG INJ IV ONE (06:30)
--- NOTE | 2017-09-06 06:30 | RADRPT ---
PROCEDURE: XR Chest. CLINICAL INDICATION: Dyspnea TECHNIQUE: AP Portable chest. COMPARISON: Chest x-ray 11/16/2016 FINDINGS: The soft tissues and bones are remarkable for generalized osteopenia and surgical clips present in t he bilateral axilla. Interval onset of bibasilar consolidation or atelectasis is noted. Small bilat eral pleural effusions are present. Vascular calcifications are present of the thoracic aorta and mi ld cardiomegaly is noted. No pneumothorax is present. IMPRESSION: 1. Interval onset of bibasilar consolidation and/or atelectasis with small bilateral pleural effusi ons. 2. Mild cardiomegaly and atherosclerotic vascular disease 3. Postsurgical changes in the bilateral axilla and generalized osteopenia RPTAT: HDC .Galina Mckeon MD, Date Time Electronically viewed and signed by .Galina Mckeon MD, on 09/06/2017 06:30 .C/
--- NOTE | 2017-09-06 06:33 | EN ---
Date/Time of Note Date/Time of Note DATE: 09/06/17 TIME: 06:32 Event Note Medicine Medicine Event Note CROP SUPERVISOR note I was called to the room to assess the patient for desaturation and sob. Upon arriving to the room patient was seen to be on a nonrebreather mask and satting at 98%. As per the nurse patient was doing well earlier and then developed shortness of breath and desaturated. She received an order from the on-call doctor overnight to give Lasix as patient was thought to be dealing with pulmonary vascular congestion. Upon my examination patient's lung sounds appear to be clear. She did not have any signs of fluid overload in her lower extremity. She was in rapid A. fib with RVR. She was given 10 mg IV Cardizem which subsequently improved the heart rate down to the 70s-80s. Chest x-ray was done which showed bilateral small pleural effusions and questionable consolidation in the right lung field. Patient was afebrile. Patient is already on therapeutic dose of Lovenox at this time however PE was still in the differential, for a stat CTA of the chest was ordered. The patient is afebrile because of the possible consolidation on the chest x-ray I will give a dose of vancomycin and Levaquin at this time. Vitals: Temperature 97.5 blood pressure 197/88 Respiratory rate 28 heart rate 120, SPO2 98% on nonrebreather. Subsequent improvement in the patient blood pressure and heart rate and patient was able to be weaned off of nonrebreather and she was satting at 96% on room air by the end of the rapid response. HEENT: Normocephalic atraumatic, extraocular muscles intact Lungs: Coarse breath sounds at the right lung field, mild crackles at the bases bilaterally CVS: Irregularly irregular, rapid Extremities: No edema Neuro: Patient awake and alert responding to questions though slightly confused Telemetry: Rapid A. fib with RVR, after given Cardizem 10 mg IV 1 patient's heart rate improved to the 70s and 80s Chest x-ray: Bilateral small pleural effusions, questionable consolidation of the right lung field, will affect official x-ray read. Assessment and plan: #1 hypoxia: Pulmonary embolism versus pneumonia versus pulmonary congestion: Patient was put on nonrebreather mask and through the end of the CROP SUPERVISOR she was able to be weaned off the mask and she was satting at approximately 96% on room air. Chest x-ray showed questionable infiltrate though patient was afebrile. I do not see any signs of any pulmonary congestion on the x-ray the patient did receive Lasix earlier. Those 2 though the patient is on Lovenox at the current time I do think it would be prudent to check a CTA of the chest to rule out PE and/or underlying infection as x-ray shows possible consolidation. I will also give a one-time dose of vancomycin and Levaquin. As she is now no longer requiring supplemental oxygen and her heart rate is now better controlled I think the patient is stable to stay in telemetry. #2 A. fib with RVR: Patient was given Cardizem 10 mg IV 1 with good response I discussed findings with the nurse and I advised her to call the primary team and make them aware. Greater than 40 minutes of critical care time was spent on the care management of this patient. TIKI RHODES Sep 06, 2017 06:33 TIKI RHODES Sep 06, 2017 06:33
[2017-09-06] MEDS ORDERED: IOHEXOL 300MG/ML 150 ML BTL ONE (06:39)
[2017-09-06] MEDS ORDERED: SOD CHLORIDE 0.9% 0 ML ONE (06:39)
[2017-09-06 06:50] LABS: ABNORMAL IP MESSAGE 1; BASOPHILS % 0.5 % (0.0-2.0); EOSINOPHILS # 0.1 10^3/ul (0.0-0.5); EOSINOPHILS % 0.6 % (0.0-7.0); HEMATOCRIT 43.3 % (37.0-47.0); HEMOGLOBIN 14.3 g/dl (12.0-16.0); LYMPHOCYTES # 0.4 10^3/ul (0.8-2.9); LYMPHOCYTES % 4.8 % (15.0-51.0); MEAN CORPUSCULAR HEMOGLOBIN 32.1 pg (29.0-33.0); MEAN CORPUSCULAR VOLUME 97.3 fl (82.0-101.0); MEAN PLATELET VOLUME 10.1 fl (7.4-10.4); MONOCYTE # 0.9 10^3/ul (0.3-0.9); MONOCYTES % 9.9 % (0.0-11.0); NEUTROPHIL # 7.2 10^3/ul (1.6-7.5); NEUTROPHILS % 83.6 % (39.0-77.0); PLATELET COUNT 207 10^3/UL (140-415); RED BLOOD COUNT 4.45 10^6/ul (4.20-5.40); RED CELL DISTRIBUTION WIDTH 12.8 % (11.5-14.5); WHITE BLOOD COUNT 8.6 10^3/ul (4.8-10.8)
[2017-09-06] MEDS ORDERED: SOD CHLORIDE 0.9% 500 ML IV ONE (07:00)
[2017-09-06 07:07] LABS: POSITIVE DIFF @See below
[2017-09-06 07:16] LABS: PROTIME 22.9 Sec (12.2-14.2); PT RATIO 1.8
[2017-09-06 07:35] LABS: CALCIUM 8.8 mg/dl (8.4-10.2); CREATININE 0.63 mg/dl (0.44-1.00); POTASSIUM 4.4 mmol/L (3.5-5.1)
--- NOTE | 2017-09-06 07:43 | CONS ---
Date/Time of Note Date/Time of Note DATE: 09/06/17 TIME: 07:34 Assessment/Plan Assessment/Plan Chief Complaint/Hosp Course # Acute dyspnea- will need to r/o recurrent ischemia, no acute changes on ekg. obtain serial troponin, limited echo - cont asa/statin - bb for rate control/bp control w hold parameters HR <55, SBP <100 - cont diuresis # NSTEMI- no acute change on ekg, troponin elevation downtrending. likely type ii nstemi from demand from SBO. Pt with many comorbid conditions making her high risk for any invasive cardiac testing, at this time recommend cont medical mgmt. no wma on echo - cont statin, low dose asa - low dose bb - serial trop # abd pain- SBO on ct scan, improved. - gi consulting, defer for mgmt # afib- chronic, rate controlled - cont bb, digoxin given stable bp - cont lovenox, restart coumadin if no procedures planned and clinically improved. # Pleural effusions- negative previous cytology with thoracentesis, has chronic diastolic hf - bp control - diuressi # pericardial effusion- small anterior chronic - cont med mgmt, no interval change or hd significance # HTN - cont home meds Problems: Consultation Date/Type/Reason Admit Date/Time Sep 03, 2017 at 04:20 Initial Consult Date 09/02/17 Type of Consultation: Cardiology Referring Provider: CATARINO RAMOS MD 24 HR Interval Summary Free Text/Dictation pt had RENAL TECHNICIAN called this am per nursing had sob with desaturation. pt with elevated bp and hr. pt given iv lasix and cardizem. pt without much response so now getting fluids as well. hrs now improved afib on tele rate of 90s. bp 110s systolic. spo2 stable. ekg reviewed, afib rate controlled in 80s no acute changes. pt seems confused this am, did not remember me. looks slightly anxious, but breathing is stable. denies any chest pain/pressure right now. does report mild sob. no abd pain n/v. Detailed Summary ENT: no complaints Respiratory: shortness of breath Cardiovascular: no complaints Gastrointestinal: pain Exam/Review of Systems Vital Signs Vitals Vital Signs Date Time Temp Pulse Resp B/P Pulse Ox O2 Delivery O2 Flow Rate FiO2 09/06/17 07:13 102 09/06/17 07:10 97.4 18 131/65 95 09/06/17 05:50 Non Rebreather Mask 15.0 100 Intake and Output 09/05/17 09/05/17 09/06/17 15:00 23:00 07:00 Intake Total 300 ml Balance 300 ml Exam Constitutional: alert, disoriented, frail Psych: no complaints Head: normocephalic Eyes: EOMI ENMT: op clear poor dentition Respiratory: other (decrease bs bilateral base) Cardiovascular: irregular rhythm, nl pulses, systolic murmur Gastrointestinal minimal ttp, no guarding/rebound Musculoskeletal: no sig edema, Extremities: normal pulses, wwp Neurological: CLIENT COORDINATOR II-XII intact, nl mental status, nl speech Results Result Diagram: 09/06/17 0625 09/05/17 0605 Results 24 hrs Laboratory Tests Test 09/05/17 09:18 09/06/17 06:14 09/06/17 06:25 Prothrombin Time 29.7 #H 22.9 #H Prothrombin Time Ratio 2.3 1.8 INR International Normalized Ratio 2.78 2.00 Blood Gas Specimen Source Blood arterial Arterial Blood Date Drawn 09/06/2017 6:18:04 AM Arterial Blood pH (Temp corrected) 7.440 Arterial Blood pCO2 (Temp correct) 42.6 Arterial Blood pO2 (Temp corrected) 340.3 H Arterial Blood HCO3 28.3 H Arterial Blood Base Excess 3.7 H Arterial Blood Oxygen Saturation 99.8 Heriberto Test ACCEPTAB Arterial Blood Gas Puncture Site Left Radial Arterial Blood Carboxyhemoglobin 0.3 Arterial Blood Methemoglobin 0.2 Blood Gas A-a O2 Differential 330.1 H Oxyhemoglobin Percent 99.3 H Total Hemoglobin 15.2 Blood Gas Temperature 37.0 Blood Gas Actual Respiration Rate 24 Blood Gas Modality MASK - NRB FiO2 100.0 Blood Gas Notified Whom KB Blood Gas Notified Time 09/06/2017 6:29:38 AM White Blood Count 8.6 Red Blood Count 4.45 Hemoglobin 14.3 Hematocrit 43.3 Mean Corpuscular Volume 97.3 Mean Corpuscular Hemoglobin 32.1 Mean Corpuscular Hemoglobin Concent 33.0 Red Cell Distribution Width 12.8 Platelet Count 207 Mean Platelet Volume 10.1 Neutrophils % 83.6 H Lymphocytes % 4.8 L Monocytes % 9.9 Eosinophils % 0.6 Basophils % 0.5 Nucleated Red Blood Cells % 0.0 Neutrophils # 7.2 Lymphocytes # 0.4 L Monocytes # 0.9 Eosinophils # 0.1 Basophils # 0.0 Nucleated Red Blood Cells # 0.0 Medications Medications Current Medications Ondansetron HCl (Zofran Inj) 4 mg Q6H PRN IV NAUSEA AND/OR VOMITING Last administered on 09/02/17 16:27; Admin Dose 4 MG; Start 09/02/17 at 13:00 Enoxaparin Sodium (Lovenox) 45 mg Q24H SC Last administered on 09/05/17 10:08 ; Admin Dose 45 MG; Start 09/03/17 at 10:00 Digoxin (Digoxin) 0.125 mg DAILY@13 PO Last administered on 09/05/17 13:29; Admin Dose 0.125 MG; Start 09/04/17 at 13:00 Levothyroxine Sodium (Synthroid) 50 mcg DAILY@06 PO Last administered on 05:43; Admin Dose 50 MCG; Start 09/05/17 at 06:00 Nifedipine (Procardia Xl) 30 mg DAILY PO Last administered on 09/05/17 10:05 ; Admin Dose 30 MG; Start 09/04/17 at 09:00 Atorvastatin Calcium (Lipitor) 10 mg HS PO Last administered on 09/05/17 20: 44; Admin Dose 10 MG; Start 09/04/17 at 21:00 Spironolactone (Aldactone) 25 mg DAILY@06 PO Last administered on 09/06/17 04 :00; Admin Dose 25 MG; Start 09/05/17 at 08:00 Metoprolol Succinate (Toprol Xl) 25 mg BID PO Last administered on 09/05/17 20:45; Admin Dose 25 MG; Start 09/05/17 at 09:00 Furosemide (Lasix) 40 mg DAILY@06 PO Last administered on 09/06/17 04:02; Admin Dose 40 MG; Start 09/05/17 at 08:06 Famotidine 20 mg 20 mg DAILY PO ; Start 09/06/17 at 09:00 Sodium Chloride (NS) 500 ml @ 500 mls/hr Q1H ONCE IV Last administered on 07:32; Admin Dose 500 MLS/HR; Start 09/06/17 at 07:00; Stop 09/06/17 at 07:59 Procedures Procedures ekg reviewed in emr, per hpi cxr report reviewed in emr The soft tissues and bones are remarkable for generalized osteopenia and surgical clips present in the bilateral axilla. Interval onset of bibasilar consolidation or atelectasis is noted. Small bilateral pleural effusions are present. Vascular calcifications are present of the thoracic aorta and mild cardiomegaly is noted. No pneumothorax is present. EVE DELGADO. Sep 06, 2017 07:43
--- NOTE | 2017-09-06 07:57 | CONS ---
Date/Time of Note Date/Time of Note DATE: 09/06/17 TIME: 07:52 Consult Date/Type/Reason Admit Date/Time Sep 03, 2017 at 04:20 Initial Consult Date 09/02/17 Type of Consultation: GI Ordering Provider: CATARINO RAMOS MD Subjective Shortness of breath attributed by Dr. Ramos to CHF Denies abdominal pain Objective Vital Signs Date Time Temp Pulse Resp B/P Pulse Ox O2 Delivery O2 Flow Rate FiO2 09/06/17 07:13 102 09/06/17 07:10 97.4 18 131/65 95 09/06/17 05:50 Non Rebreather Mask 15.0 100 Abdomen: soft, gaseous distention Intake and Output 09/05/17 09/05/17 09/06/17 14:59 22:59 06:59 Intake Total 300 ml Balance 300 ml Results/Medications Result Diagram: 09/06/17 0625 09/06/17 0625 Results 24 hrs Laboratory Tests Test 09/05/17 09:18 09/06/17 06:14 09/06/17 06:20 09/06/17 06:25 Prothrombin Time 29.7 #H 22.9 #H Prothrombin Time Ratio 2.3 1.8 INR International Normalized Ratio 2.78 2.00 Blood Gas Specimen Source Blood arterial Arterial Blood Date Drawn 09/06/2017 6:18:04 AM Arterial Blood pH (Temp corrected) 7.440 Arterial Blood pCO2 (Temp correct) 42.6 Arterial Blood pO2 (Temp corrected) 340.3 H Arterial Blood HCO3 28.3 H Arterial Blood Base Excess 3.7 H Arterial Blood Oxygen Saturation 99.8 Heriberto Test ACCEPTAB Arterial Blood Gas Puncture Site Left Radial Arterial Blood Carboxyhemoglobin 0.3 Arterial Blood Methemoglobin 0.2 Blood Gas A-a O2 Differential 330.1 H Oxyhemoglobin Percent 99.3 H Total Hemoglobin 15.2 Blood Gas Temperature 37.0 Blood Gas Actual Respiration Rate 24 Blood Gas Modality MASK - NRB FiO2 100.0 Blood Gas Notified Whom KB Blood Gas Notified Time 09/06/2017 6:29:38 AM Lactic Acid Level 1.8 White Blood Count 8.6 Red Blood Count 4.45 Hemoglobin 14.3 Hematocrit 43.3 Mean Corpuscular Volume 97.3 Mean Corpuscular Hemoglobin 32.1 Mean Corpuscular Hemoglobin Concent 33.0 Red Cell Distribution Width 12.8 Platelet Count 207 Mean Platelet Volume 10.1 Neutrophils % 83.6 H Lymphocytes % 4.8 L Monocytes % 9.9 Eosinophils % 0.6 Basophils % 0.5 Nucleated Red Blood Cells % 0.0 Neutrophils # 7.2 Lymphocytes # 0.4 L Monocytes # 0.9 Eosinophils # 0.1 Basophils # 0.0 Nucleated Red Blood Cells # 0.0 Sodium Level 138 Potassium Level 4.4 Chloride Level 99 Carbon Dioxide Level 28 Anion Gap 15 Blood Urea Nitrogen 9 Creatinine 0.63 Glucose Level 106 Calcium Level 8.8 Magnesium Level 2.0 Medications Current Medications Ondansetron HCl (Zofran Inj) 4 mg Q6H PRN IV NAUSEA AND/OR VOMITING Last administered on 09/02/17 16:27; Admin Dose 4 MG; Start 09/02/17 at 13:00 Enoxaparin Sodium (Lovenox) 45 mg Q24H SC Last administered on 09/05/17 10:08 ; Admin Dose 45 MG; Start 09/03/17 at 10:00 Digoxin (Digoxin) 0.125 mg DAILY@13 PO Last administered on 09/05/17 13:29; Admin Dose 0.125 MG; Start 09/04/17 at 13:00 Levothyroxine Sodium (Synthroid) 50 mcg DAILY@06 PO Last administered on 05:43; Admin Dose 50 MCG; Start 09/05/17 at 06:00 Nifedipine (Procardia Xl) 30 mg DAILY PO Last administered on 09/05/17 10:05 ; Admin Dose 30 MG; Start 09/04/17 at 09:00 Atorvastatin Calcium (Lipitor) 10 mg HS PO Last administered on 09/05/17 20: 44; Admin Dose 10 MG; Start 09/04/17 at 21:00 Spironolactone (Aldactone) 25 mg DAILY@06 PO Last administered on 09/06/17 04 :00; Admin Dose 25 MG; Start 09/05/17 at 08:00 Metoprolol Succinate (Toprol Xl) 25 mg BID PO Last administered on 09/05/17 20:45; Admin Dose 25 MG; Start 09/05/17 at 09:00 Famotidine (Pepcid) 20 mg DAILY PO ; Start 09/06/17 at 09:00 Furosemide (Lasix) 40 mg DAILY IV ; Start 09/07/17 at 09:00 Assessment/Plan Chief Complaint/Hosp Course Impression: SBO - Clinically improved Plan: Discussed with I will sign off for now Will see again at your request Problems: JULIAN POWELL MD Sep 06, 2017 07:57
--- NOTE | 2017-09-06 08:25 | PN ---
Date/Time of Note Date/Time of Note DATE: 09/06/17 TIME: 08:20 Assessment/Plan VTE Prophylaxis VTE Prophylaxis Intervention: other Lines/Catheters IV Catheter Type (from Nrs): Peripheral IV Urinary Cath still in place: No Reason Cath still needed: urinary retention Assessment/Plan Assessment/Plan 1. SBO has resolved, rev this am with Dr. Mansfield. 2. 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 A fib with variable HR, now adequately controlled, INR is therapeutic, lovenox stopped, will need to dose Coumadin tomm 4. Pleural effusions are chronic and present even when pt was clinically "dry" and prior throacentesis 6-9 mos ago->transudate. 5. HBP controlled. Subjective 24 Hr Interval Summary Cardiovascular: other (Last evening had onset sob which is sl better today), No chest pain, No palpitations Gastrointestinal: no complaints Genitourinary: other (jenkins is back in place) Exam/Review of Systems Vital Signs Vitals Vital Signs Date Time Temp Pulse Resp B/P Pulse Ox O2 Delivery O2 Flow Rate FiO2 09/06/17 07:13 102 09/06/17 07:10 97.4 18 131/65 95 09/06/17 05:50 Non Rebreather Mask 15.0 100 Intake and Output 09/05/17 09/05/17 09/06/17 15:00 23:00 07:00 Intake Total 300 ml Balance 300 ml Exam Neck: jvd Respiratory: No crackles/rales, No diminished breath sounds, No wheezing Cardiovascular: No irregular rhythm (without s3 and no m) Gastrointestinal: nl liver, spleen, soft Extremities: No edema (and no calf tend) Results Result Diagram: 09/06/17 0625 09/06/17 0625 Results 24 hrs Laboratory Tests Test 09/05/17 09:18 09/06/17 06:14 09/06/17 06:20 09/06/17 06:25 Prothrombin Time 29.7 #H 22.9 #H Prothrombin Time Ratio 2.3 1.8 INR International Normalized Ratio 2.78 2.00 Blood Gas Specimen Source Blood arterial Arterial Blood Date Drawn 09/06/2017 6:18:04 AM Arterial Blood pH (Temp corrected) 7.440 Arterial Blood pCO2 (Temp correct) 42.6 Arterial Blood pO2 (Temp corrected) 340.3 H Arterial Blood HCO3 28.3 H Arterial Blood Base Excess 3.7 H Arterial Blood Oxygen Saturation 99.8 Heriberto Test ACCEPTAB Arterial Blood Gas Puncture Site Left Radial Arterial Blood Carboxyhemoglobin 0.3 Arterial Blood Methemoglobin 0.2 Blood Gas A-a O2 Differential 330.1 H Oxyhemoglobin Percent 99.3 H Total Hemoglobin 15.2 Blood Gas Temperature 37.0 Blood Gas Actual Respiration Rate 24 Blood Gas Modality MASK - NRB FiO2 100.0 Blood Gas Notified Whom KB Blood Gas Notified Time 09/06/2017 6:29:38 AM Lactic Acid Level 1.8 White Blood Count 8.6 Red Blood Count 4.45 Hemoglobin 14.3 Hematocrit 43.3 Mean Corpuscular Volume 97.3 Mean Corpuscular Hemoglobin 32.1 Mean Corpuscular Hemoglobin Concent 33.0 Red Cell Distribution Width 12.8 Platelet Count 207 Mean Platelet Volume 10.1 Neutrophils % 83.6 H Lymphocytes % 4.8 L Monocytes % 9.9 Eosinophils % 0.6 Basophils % 0.5 Nucleated Red Blood Cells % 0.0 Neutrophils # 7.2 Lymphocytes # 0.4 L Monocytes # 0.9 Eosinophils # 0.1 Basophils # 0.0 Nucleated Red Blood Cells # 0.0 Sodium Level 138 Potassium Level 4.4 Chloride Level 99 Carbon Dioxide Level 28 Anion Gap 15 Blood Urea Nitrogen 9 Creatinine 0.63 Glucose Level 106 Calcium Level 8.8 Magnesium Level 2.0 Medications Medications Current Medications Ondansetron HCl (Zofran Inj) 4 mg Q6H PRN IV NAUSEA AND/OR VOMITING Last administered on 09/02/17 16:27; Admin Dose 4 MG; Start 09/02/17 at 13:00 Enoxaparin Sodium (Lovenox) 45 mg Q24H SC Last administered on 09/05/17 10:08 ; Admin Dose 45 MG; Start 09/03/17 at 10:00 Digoxin (Digoxin) 0.125 mg DAILY@13 PO Last administered on 09/05/17 13:29; Admin Dose 0.125 MG; Start 09/04/17 at 13:00 Levothyroxine Sodium (Synthroid) 50 mcg DAILY@06 PO Last administered on 05:43; Admin Dose 50 MCG; Start 09/05/17 at 06:00 Nifedipine (Procardia Xl) 30 mg DAILY PO Last administered on 09/05/17 10:05 ; Admin Dose 30 MG; Start 09/04/17 at 09:00 Atorvastatin Calcium (Lipitor) 10 mg HS PO Last administered on 09/05/17 20: 44; Admin Dose 10 MG; Start 09/04/17 at 21:00 Spironolactone (Aldactone) 25 mg DAILY@06 PO Last administered on 09/06/17 04 :00; Admin Dose 25 MG; Start 09/05/17 at 08:00 Metoprolol Succinate (Toprol Xl) 25 mg BID PO Last administered on 09/05/17 20:45; Admin Dose 25 MG; Start 09/05/17 at 09:00 Famotidine (Pepcid) 20 mg DAILY PO ; Start 09/06/17 at 09:00 Furosemide (Lasix) 40 mg DAILY IV ; Start 09/07/17 at 09:00 CATARINO RAMOS MD Sep 06, 2017 08:25
[2017-09-06] MEDS ORDERED: VANCOMYCIN 1 GM (PMX) 250 ML IVPB ONE (09:00)
[2017-09-06] MEDS ORDERED: FAMOTIDINE 20 MG TAB PO SCH ×2 (09:00→21:00)
[2017-09-06] MEDS ORDERED: LEVOFLOXACIN 750MG/D5W (PMX) 150 ML IVPB ONE (09:00)
[2017-09-06 10:16] LABS: AADO2 Arterial 40.9 mmHg (7.0-24.0); Allen Test ACCEPTAB; Arterial Base Excess 3.3 mmol/L (-3.0-3); Arterial COHb 0.3 % (0.0-3.0); Arterial Fraction of Oxyhgb 92.9 % (93.0-99.0); Arterial HCO3 27.1 mmol/L (22.0-26.0); Arterial MetHb 0.2 % (0.0-1.5); Arterial Total Hemglobin 14.9 g/dl (12.0-18.0); MODE ROOM AIR
--- NOTE | 2017-09-06 10:39 | RADRPT ---
PROCEDURE: US Lower extremity Venous. CLINICAL INDICATION: Bilateral lower extremity edema , shortness of breath TECHNIQUE: Multiple sonographic images of the bilateral lower extremity deep venous system was obt ained utilizing grayscale, color-flow, compressive sonography and doppler imaging with augmentation. The images were reviewed on a PACS workstation. COMPARISON: None. FINDINGS: There is normal compressibility and flow within the bilateral common femoral, femoral , posterior ti bial and popliteal veins. RPTAT: AA IMPRESSION: No sonographic evidence for deep venous thrombosis. .Julio C Turner MD, MD Date Time Electronically viewed and signed by .Julio C Turner MD, on 09/06/2017 10:39 .S/
[2017-09-06] MEDS: ONDANSETRON 4 MG INJ IV PRN (11:32)
[2017-09-06] MEDS: METOPROLOL (XL) 25 MG TAB PO SCH ×2 (11:43→21:27)
[2017-09-06] MEDS: ASPIRIN (EC) 81 MG TAB PO SCH (11:43)
[2017-09-06] MEDS: NIFEdipine (XL) 30 MG TAB PO SCH (11:43)
[2017-09-06] MEDS: FAMOTIDINE 20 MG TAB PO SCH ×2 (11:44→21:27)
[2017-09-06] MEDS: DIGOXIN 0.125 MG TAB PO SCH (11:47)
--- NOTE | 2017-09-06 13:19 | RADRPT ---
Vent Rate: 82 bpm RR Interval: [address] Interval: 0 msec QRS Duration: 76 msec QT Interval: 354 msec QTC Interval: 413 msec P-R-T [place]: 0 - 44 - 39 degrees Atrial fibrillation with a competing junctional pacemaker Low voltage QRS Septal infarct , age undetermined Abnormal ECG Electronically Signed By: Jeremy Guerrero [id number]
[2017-09-06] MEDS: FUROSEMIDE 40 MG INJ IV SCH (18:48)
[2017-09-06] MEDS: ATORVASTATIN 10 MG TAB PO SCH (21:27)
--- NOTE | 2017-09-06 21:32 | PN ---
Date/Time of Note Date/Time of Note DATE: 09/06/17 TIME: 21:30 Assessment/Plan Lines/Catheters IV Catheter Type (from Nrs): Saline Lock Horne in Place (from Nrs): Yes Assessment/Plan Assessment/Plan [facility] Progress Note Date of Service: 09/06/2017 Location of Service: [facility] fifth floor telemetry Today's Assessment & Plan: Overall stable and doing relatively well. No obvious indication of high-grade bowel obstruction. Abdomen remains benign. No indications of major postoperative complications or wound problems. No indication for acute surgical intervention. Awaiting further return of bowel function. Discussed with patient and her daughter and answered all questions. Patient and family appeared to understand and agreed with plans. Previous assessments that applies today: A very-pleasant 87-year-old lady with multiple comorbidities including prior operations, presenting with a picture that is more consistent with ileus and less consistent with adhesive small bowel obstruction. Patient's abdomen appears to be benign and there is no indication for acute surgical intervention. With above assessment, I've recommended the followin. Continue in-house care 2. Strict I's and O's 3. Careful monitoring of vital signs 4. Continue regular diet 5. Labs in a.m. 6. Increase activity 7. Pulmonary toilet Thank you very much for having me involved in the care of this very pleasant patient and wonderful family. If you have any questions, please feel free to contact me at [phone]. Nature of presenting problem: Moderate severity Please note that, given the multiple number of diagnoses or management options, the moderate amount and/or complexity of data needed to be reviewed, and moderate risk of complications and/or morbidity or mortality, this qualifies as moderate complexity type of decision-making. Disclaimers: 1. Inadvertent spelling and grammatical errors are likely due to electronic health record (EHR)/dictation software used and do not reflect on the quality of delivered patient care. 2. The electronic timestamp recorded on this note does not necessarily reflect the actual date and time of the visit or the service. 3. Portions of this note may have been created through electronic templates and computer algorithms that might bring in information either from the system or from other physicians and providers. Please note that such information may or may not contain errors, the occurrence of which are outside of my control. In general (but not always) this happens either in the beginning or at the end of the note. The portion of the note that I have created are generally done in 1 continuous block of text, flanked at the beginning and at the end by " ", and entered into one field in the EHR. 4. There may be other unanticipated errors in the note that are outside of my control. I can only attest to the portions of the note that I have created. Updated clinical summary: A very-pleasant 87-year-old lady with multiple comorbidities including prior operations, presenting with a picture that is more consistent with ileus and less consistent with adhesive small bowel obstruction. Comorbidities: 1. Hypertension. 2. Atrial fibrillation. 3. Hyperlipidemia. 4. Hypothyroidism. 5. History of ruptured appendix. 6. Cancer of the breast in 1999, undergoing mastectomy and chemo with a modified right radical mastectomy in 05/2015 completed x-ray therapy and has been followed by Dr. Burrell. 7. 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 8. Undergoing extensive workup here at [facility] in 02/[address] imaging no malignancy was detected. 9. Hospitalization in 02/2016, with poor appetite and weight loss. CT scan revealed bilateral pleural effusions. There was no infection, no malignancy as revealed by a thoracentesis. 10. History of a petechial right posterior temporal lobe hemorrhage when pursuing the cause of hallucinations in 03/2016, as well as an old lacunar infarct. 11. Recent colonoscopy has not been performed. Subjective: No major events or complaints; reports feeling ok; no abd pain and under control with medications; no n/v/d; no sob or cp; + bowel activity; + activity with assist Objective: Vitals: See below Exam: GENERAL: On exam, the patient was laying in bed and appeared to be comfortable and in no acute distress. ABDOMEN: Soft, nontender and nondistended. There are no peritoneal signs or guarding. SKIN: Skin appears to be pink and feels warm to touch. NEUROLOGIC: Patient is awake, alert, and follows commands appropriately. Exam/Review of Systems Vital Signs Vitals Vital Signs Date Time Temp Pulse Resp B/P Pulse Ox O2 Delivery O2 Flow Rate FiO2 09/06/17 20:58 98.4 77 18 126/61 98 09/06/17 19:15 Nasal Cannula 2.0 09/06/17 05:50 100 Intake and Output 09/05/17 09/05/17 09/06/17 15:00 23:00 07:00 Intake Total 300 ml Balance 300 ml Results Result Diagram: 09/06/17 0625 09/06/17 0625 NIKO PIERRE M.D. Sep 06, 2017 21:32
[2017-09-07] VITALS (13 sets, daily range): BP systolic 95–127; BP diastolic 51–64; PULSE 36–76; RESP 16–18
[2017-09-07] MEDS: FUROSEMIDE 40 MG INJ IV SCH ×2 (05:19→17:44)
[2017-09-07] MEDS: LEVOTHYROXINE 50 MCG TAB PO SCH (05:19)
[2017-09-07] MEDS: SPIRONOLACTONE 25 MG TAB PO SCH (05:19)
[2017-09-07] MEDS ORDERED: FUROSEMIDE 40 MG INJ IV SCH (09:00)
[2017-09-07 09:22] LABS: ABNORMAL IP MESSAGE 1; BASOPHILS % 0.4 % (0.0-2.0); EOSINOPHILS # 0.1 10^3/ul (0.0-0.5); EOSINOPHILS % 0.8 % (0.0-7.0); HEMATOCRIT 43.6 % (37.0-47.0); HEMOGLOBIN 14.3 g/dl (12.0-16.0); LYMPHOCYTES # 0.3 10^3/ul (0.8-2.9); LYMPHOCYTES % 4.3 % (15.0-51.0); MEAN CORPUSCULAR HEMOGLOBIN 31.2 pg (29.0-33.0); MEAN CORPUSCULAR HGB CONC 32.8 g/dl (32.0-37.0); MEAN CORPUSCULAR VOLUME 95.2 fl (82.0-101.0); MEAN PLATELET VOLUME 10.7 fl (7.4-10.4); MONOCYTE # 0.9 10^3/ul (0.3-0.9); MONOCYTES % 12.7 % (0.0-11.0); NEUTROPHILS % 81.5 % (39.0-77.0); PLATELET COUNT 219 10^3/UL (140-415); RED BLOOD COUNT 4.58 10^6/ul (4.20-5.40); RED CELL DISTRIBUTION WIDTH 12.7 % (11.5-14.5); WHITE BLOOD COUNT 7.4 10^3/ul (4.8-10.8)
[2017-09-07] MEDS ORDERED: WARFARIN 1 MG TAB GTB ONE (09:30)
--- NOTE | 2017-09-07 09:33 | PN ---
Date/Time of Note Date/Time of Note DATE: 09/07/17 TIME: 09:23 Assessment/Plan VTE Prophylaxis VTE Prophylaxis Intervention: other (therapeutic) Lines/Catheters IV Catheter Type (from Nrsg): Saline Lock Urinary Cath still in place: Yes Reason Cath still needed: pres ulcer contaminated by urine Assessment/Plan Problems: (1) CHF (congestive heart failure) Comment: improved with diuresis atrial fib and bp controlled coumadin ordered (2) Small bowel obstruction Comment: appears resolved-eating and no n and v or pain Subjective 24 Hr Interval Summary Constitutional: other (sacral pain-reviewed with nursing and stage 1 and will have pillow placed.) ENT: other (hard of hearing) Respiratory: no complaints Gastrointestinal: no complaints, other (eating at present time) Exam/Review of Systems Vital Signs Vitals Vital Signs Date Time Temp Pulse Resp B/P Pulse Ox O2 Delivery O2 Flow Rate FiO2 09/07/17 08:44 69 09/07/17 08:28 98.1 17 112/64 98 09/07/17 01:57 2.0 09/06/17 22:30 28 09/06/17 19:15 Nasal Cannula Intake and Output 09/06/17 09/06/17 09/07/17 14:59 22:59 06:59 Intake Total 950 ml 250 ml Output Total 1850 ml Balance 950 ml -1600 ml Exam Constitutional: alert Respiratory: clear to auscultation Cardiovascular: irregular rhythm Gastrointestinal: non-tender, soft Genitourinary - Female: other (good urine with jenkins) 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 [employer] II-XII intact Results Result Diagram: 09/06/17 0625 09/06/17 0625 Results 24 hrs Laboratory Tests Test 09/07/17 08:15 White Blood Count Pending Red Blood Count Pending Hemoglobin Pending Hematocrit Pending Mean Corpuscular Volume Pending Mean Corpuscular Hemoglobin Pending Mean Corpuscular Hemoglobin Concent Pending Red Cell Distribution Width Pending Platelet Count Pending Mean Platelet Volume Pending Medications Medications Current Medications Ondansetron HCl (Zofran Inj) 4 mg Q6H PRN IV NAUSEA AND/OR VOMITING Last administered on 09/06/17 11:32; Admin Dose 4 MG; Start 09/02/17 at 13:00 Digoxin (Digoxin) 0.125 mg DAILY@13 PO Last administered on 09/06/17 11:47; Admin Dose 0.125 MG; Start 09/04/17 at 13:00 Levothyroxine Sodium (Synthroid) 50 mcg DAILY@06 PO Last administered on 05:19; Admin Dose 50 MCG; Start 09/05/17 at 06:00 Nifedipine (Procardia Xl) 30 mg DAILY PO Last administered on 09/06/17 11:43 ; Admin Dose 30 MG; Start 09/04/17 at 09:00 Atorvastatin Calcium (Lipitor) 10 mg HS PO Last administered on 09/06/17 21: 27; Admin Dose 10 MG; Start 09/04/17 at 21:00 Spironolactone (Aldactone) 25 mg DAILY@06 PO Last administered on 09/07/17 05 :19; Admin Dose 25 MG; Start 09/05/17 at 08:00 Metoprolol Succinate (Toprol Xl) 25 mg BID PO Last administered on 09/06/17 21:27; Admin Dose 25 MG; Start 09/05/17 at 09:00 Famotidine (Pepcid) 20 mg BID PO Last administered on 09/06/17 21:27; Admin Dose 20 MG; Start 09/06/17 at 09:00 Aspirin (Halfprin) 81 mg DAILY PO Last administered on 09/06/17 11:43; Admin Dose 81 MG; Start 09/06/17 at 09:00 TAMMI YAN MD Sep 07, 2017 09:33
[2017-09-07] MEDS: ASPIRIN (EC) 81 MG TAB PO SCH (09:58)
[2017-09-07] MEDS: FAMOTIDINE 20 MG TAB PO SCH ×2 (09:58→21:26)
[2017-09-07] MEDS: METOPROLOL (XL) 25 MG TAB PO SCH ×2 (09:59→21:00)
[2017-09-07] MEDS: NIFEdipine (XL) 30 MG TAB PO SCH (09:59)
[2017-09-07 10:10] LABS: INR 1.66; PROTIME 19.7 Sec (12.2-14.2); PT RATIO 1.5
[2017-09-07 10:11] LABS: CALCIUM 8.9 mg/dl (8.4-10.2); CREATININE 0.81 mg/dl (0.44-1.00); MAGNESIUM 1.4 mg/dl (1.7-2.5); POTASSIUM 4.3 mmol/L (3.5-5.1)
[2017-09-07] MEDS: DIGOXIN 0.125 MG TAB PO SCH (13:17)
--- NOTE | 2017-09-07 14:47 | CONS ---
Date/Time of Note Date/Time of Note DATE: 09/07/17 TIME: 14:45 Assessment/Plan Assessment/Plan Additional Assessment/Plan # Acute dyspnea- echo with normal LVEF, minimal troponin leak. improved on lasix - cont asa/statin - bb for rate control/bp control w hold parameters HR <55, SBP <100 - cont diuresis estherley switch to PO in am # NSTEMI- Likely type ii nstemi from demand from SBO. Pt with many comorbid conditions making her high risk for any invasive cardiac testing, at this time recommend cont medical mgmt. no wma on echo - cont statin, low dose asa - low dose bb # abd pain- SBO on ct scan, improved. - Appreciate GI # afib- chronic, rate controlled - cont bb, digoxin given stable bp - cont lovenox, restart coumadin if no procedures planned and clinically improved. # Pleural effusions- negative previous cytology with thoracentesis, has chronic diastolic hf - bp control - diuresis # pericardial effusion- small anterior chronic - cont med mgmt, no interval change or hd significance # HTN - cont home meds # HypoMg - replete IV Consultation Date/Type/Reason Admit Date/Time Sep 03, 2017 at 04:20 Initial Consult Date 09/02/17 Type of Consultation: cardiology Referring Provider: CATARINO RAMOS MD 24 HR Interval Summary Free Text/Dictation No new complaints. Pt has been doing well today. Sleeping at this time. Exam/Review of Systems Vital Signs Vitals Vital Signs Date Time Temp Pulse Resp B/P Pulse Ox O2 Delivery O2 Flow Rate FiO2 09/07/17 12:48 69 09/07/17 12:41 98.2 17 106/55 100 09/07/17 08:20 Nasal Cannula 2.0 09/06/17 22:30 28 Intake and Output 09/06/17 09/06/17 09/07/17 14:59 22:59 06:59 Intake Total 950 ml 250 ml Output Total 1850 ml Balance 950 ml -1600 ml Exam Constitutional: frail Psych: no complaints Head: normocephalic Eyes: nl conjunctiva ENMT: nl external ears & nose Neck: jvd, supple Respiratory: clear to auscultation Cardiovascular: irregular rhythm, No edema, No jugular venous distention (JVD) Gastrointestinal: nl liver, spleen, soft Extremities: normal pulses Results Result Diagram: 09/07/17 0815 09/07/17 0814 Results 24 hrs Laboratory Tests Test 09/07/17 08:14 09/07/17 08:15 Prothrombin Time 19.7 H Prothrombin Time Ratio 1.5 INR International Normalized Ratio 1.66 Sodium Level 136 Potassium Level 4.3 Chloride Level 88 #L Carbon Dioxide Level 37 H Anion Gap 15 Blood Urea Nitrogen 13 Creatinine 0.81 Glucose Level 73 Calcium Level 8.9 Phosphorus Level 4.0 Magnesium Level 1.4 L White Blood Count 7.4 Red Blood Count 4.58 Hemoglobin 14.3 Hematocrit 43.6 Mean Corpuscular Volume 95.2 Mean Corpuscular Hemoglobin 31.2 Mean Corpuscular Hemoglobin Concent 32.8 Red Cell Distribution Width 12.7 Platelet Count 219 Mean Platelet Volume 10.7 H Neutrophils % 81.5 H Lymphocytes % 4.3 L Monocytes % 12.7 H Eosinophils % 0.8 Basophils % 0.4 Nucleated Red Blood Cells % 0.0 Neutrophils # 6.0 Lymphocytes # 0.3 L Monocytes # 0.9 Eosinophils # 0.1 Basophils # 0.0 Nucleated Red Blood Cells # 0.0 Medications Medications Current Medications Ondansetron HCl (Zofran Inj) 4 mg Q6H PRN IV NAUSEA AND/OR VOMITING Last administered on 09/06/17 11:32; Admin Dose 4 MG; Start 09/02/17 at 13:00 Digoxin (Digoxin) 0.125 mg DAILY@13 PO Last administered on 09/07/17 13:17; Admin Dose 0.125 MG; Start 09/04/17 at 13:00 Levothyroxine Sodium (Synthroid) 50 mcg DAILY@06 PO Last administered on 05:19; Admin Dose 50 MCG; Start 09/05/17 at 06:00 Nifedipine (Procardia Xl) 30 mg DAILY PO Last administered on 09/07/17 09:59 ; Admin Dose 30 MG; Start 09/04/17 at 09:00 Atorvastatin Calcium (Lipitor) 10 mg HS PO Last administered on 09/06/17 21: 27; Admin Dose 10 MG; Start 09/04/17 at 21:00 Spironolactone (Aldactone) 25 mg DAILY@06 PO Last administered on 09/07/17 05 :19; Admin Dose 25 MG; Start 09/05/17 at 08:00 Metoprolol Succinate (Toprol Xl) 25 mg BID PO Last administered on 09/07/17 09:59; Admin Dose 25 MG; Start 09/05/17 at 09:00 Famotidine (Pepcid) 20 mg BID PO Last administered on 09/07/17 09:58; Admin Dose 20 MG; Start 09/06/17 at 09:00 Aspirin (Halfprin) 81 mg DAILY PO Last administered on 09/07/17 09:58; Admin Dose 81 MG; Start 09/06/17 at 09:00 Acetaminophen (Tylenol Tab) 650 mg Q6H PRN PO PAIN AND OR ELEVATED TEMP; Start 09/07/17 at 09:30 Lasix 80 IV BID LYNN GIVENS MD Sep 07, 2017 14:47
[2017-09-07] MEDS ORDERED: MAGNESIUM SULFATE 4 GM/100 ML 100 ML IVPB ONE (16:30)
[2017-09-07] MEDS: ACETAMINOPHEN 325 MG TAB PO PRN (21:26)
[2017-09-07] MEDS: ATORVASTATIN 10 MG TAB PO SCH (21:27)
[2017-09-08] VITALS (14 sets, daily range): BP systolic 97–133; BP diastolic 42–67; PULSE 40–74; RESP 17–18
[2017-09-08] MEDS: SPIRONOLACTONE 25 MG TAB PO SCH (05:23)
[2017-09-08] MEDS: LEVOTHYROXINE 50 MCG TAB PO SCH (05:23)
[2017-09-08] MEDS: ASPIRIN (EC) 81 MG TAB PO SCH (09:14)
[2017-09-08] MEDS: FAMOTIDINE 20 MG TAB PO SCH ×2 (09:14→21:07)
[2017-09-08] MEDS: METOPROLOL (XL) 25 MG TAB PO SCH ×2 (09:15→21:08)
[2017-09-08] MEDS: NIFEdipine (XL) 30 MG TAB PO SCH (09:15)
--- NOTE | 2017-09-08 10:15 | PN ---
Date/Time of Note Date/Time of Note DATE: 09/08/17 TIME: 10:09 Assessment/Plan VTE Prophylaxis VTE Prophylaxis Intervention: other (on coumadin) Lines/Catheters IV Catheter Type (from Nrs): Saline Lock Urinary Cath still in place: Yes Reason Cath still needed: skin wounds contaminated by urine Assessment/Plan Problems: (1) CHF (congestive heart failure) Qualifiers: Congestive heart failure type: diastolic Congestive heart failure chronicity: chronic Qualified Code: I50.32 - Chronic diastolic congestive heart failure (2) Small bowel obstruction Comment: clinically resolived Subjective 24 Hr Interval Summary Free Text/Dictation only complains of sacral area pain. No sob. No chest pain. Labs reviewed and bicarb rising tho creatinine stable. She is eating at the present time. Patient being evaluated for Rehab. Exam/Review of Systems Vital Signs Vitals Vital Signs Date Time Temp Pulse Resp B/P Pulse Ox O2 Delivery O2 Flow Rate FiO2 09/08/17 08:14 74 09/08/17 08:03 98.2 17 133/63 96 09/08/17 07:42 Nasal Cannula 2.0 09/06/17 22:30 28 Intake and Output 09/07/17 09/07/17 09/08/17 15:00 23:00 07:00 Intake Total 400 ml 500 ml Output Total 400 ml 750 ml Balance 0 ml -250 ml Exam Constitutional: alert Respiratory: clear to auscultation Cardiovascular: regular rate and rhythm Results Result Diagram: 09/07/17 0815 09/07/17 0814 Medications Medications Current Medications Ondansetron HCl (Zofran Inj) 4 mg Q6H PRN IV NAUSEA AND/OR VOMITING Last administered on 09/06/17 11:32; Admin Dose 4 MG; Start 09/02/17 at 13:00 Digoxin (Digoxin) 0.125 mg DAILY@13 PO Last administered on 09/07/17 13:17; Admin Dose 0.125 MG; Start 09/04/17 at 13:00 Levothyroxine Sodium (Synthroid) 50 mcg DAILY@06 PO Last administered on 05:23; Admin Dose 50 MCG; Start 09/05/17 at 06:00 Nifedipine (Procardia Xl) 30 mg DAILY PO Last administered on 09/08/17 09:15 ; Admin Dose 30 MG; Start 09/04/17 at 09:00 Atorvastatin Calcium (Lipitor) 10 mg HS PO Last administered on 09/07/17 21: 27; Admin Dose 10 MG; Start 09/04/17 at 21:00 Spironolactone (Aldactone) 25 mg DAILY@06 PO Last administered on 09/08/17 05 :23; Admin Dose 25 MG; Start 09/05/17 at 08:00 Metoprolol Succinate (Toprol Xl) 25 mg BID PO Last administered on 09/08/17 09:15; Admin Dose 25 MG; Start 09/05/17 at 09:00 Famotidine (Pepcid) 20 mg BID PO Last administered on 09/08/17 09:14; Admin Dose 20 MG; Start 09/06/17 at 09:00 Aspirin (Halfprin) 81 mg DAILY PO Last administered on 09/08/17 09:14; Admin Dose 81 MG; Start 09/06/17 at 09:00 Acetaminophen (Tylenol Tab) 650 mg Q6H PRN PO PAIN AND OR ELEVATED TEMP Last administered on 09/07/17 21:26; Admin Dose 650 MG; Start 09/07/17 at 09:30 TAMMI YAN MD Sep 08, 2017 10:15
[2017-09-08 10:26] LABS: INR 1.34; PROTIME 16.7 Sec (12.2-14.2); PT RATIO 1.3
[2017-09-08] MEDS ORDERED: WARFARIN 2 MG TAB PO ONE (10:30)
[2017-09-08] MEDS: ACETAMINOPHEN 325 MG TAB PO PRN (10:55)
[2017-09-08] MEDS: DIGOXIN 0.125 MG TAB PO SCH (13:00)
--- NOTE | 2017-09-08 13:35 | CONS ---
Date/Time of Note Date/Time of Note DATE: 09/08/17 TIME: 13:34 Assessment/Plan Assessment/Plan Additional Assessment/Plan # Acute dyspnea- echo with normal LVEF, minimal troponin leak. improved on lasix - cont asa/statin - bb for rate control/bp control w hold parameters HR <55, SBP <100 - Switch lasix PO lasix # NSTEMI- Likely type ii nstemi from demand from SBO. Pt with many comorbid conditions making her high risk for any invasive cardiac testing, at this time recommend cont medical mgmt. no wma on echo - cont statin, low dose asa - low dose bb # abd pain- SBO on ct scan, improved. - Appreciate GI # afib- chronic, rates currently on lower side. - cont bb, hold today and decrease digoxin - cont lovenox, restart coumadin if no procedures planned and clinically improved. # Pleural effusions- negative previous cytology with thoracentesis, has chronic diastolic hf - bp control - diuresis # pericardial effusion- small anterior chronic - cont med mgmt, no interval change or hd significance # HTN - cont home meds # HypoMg - Keep Mg >2 Consultation Date/Type/Reason Admit Date/Time Sep 03, 2017 at 04:20 Initial Consult Date 09/02/17 Type of Consultation: cardiology Referring Provider: CATARINO RAMOS MD 24 HR Interval Summary Free Text/Dictation Overall doing well. Less SOB. No palpitations. Had lower HR overnight while asleep. Exam/Review of Systems Vital Signs Vitals Vital Signs Date Time Temp Pulse Resp B/P Pulse Ox O2 Delivery O2 Flow Rate FiO2 09/08/17 11:31 98.0 60 17 99/54 99 09/08/17 07:42 Nasal Cannula 2.0 09/06/17 22:30 28 Intake and Output 09/07/17 09/07/17 09/08/17 14:59 22:59 06:59 Intake Total 400 ml 500 ml Output Total 400 ml 750 ml Balance 0 ml -250 ml Exam Constitutional: alert, frail, well developed Psych: nl mood/affect, no complaints Head: normocephalic Eyes: nl conjunctiva ENMT: nl external ears & nose Neck: non-tender, supple Respiratory: clear to auscultation, diminished breath sounds, No crackles/rales Cardiovascular: regular rate and rhythm Gastrointestinal: non-tender, soft Musculoskeletal: nl extremities to inspection Neurological: PARALEGAL II-XII intact Results Result Diagram: 09/07/17 0815 09/07/17 0814 Results 24 hrs Laboratory Tests Test 09/08/17 09:31 Prothrombin Time 16.7 H Prothrombin Time Ratio 1.3 INR International Normalized Ratio 1.34 Medications Medications Current Medications Ondansetron HCl (Zofran Inj) 4 mg Q6H PRN IV NAUSEA AND/OR VOMITING Last administered on 09/06/17 11:32; Admin Dose 4 MG; Start 09/02/17 at 13:00 Digoxin (Digoxin) 0.125 mg DAILY@13 PO Last administered on 09/07/17 13:17; Admin Dose 0.125 MG; Start 09/04/17 at 13:00 Levothyroxine Sodium (Synthroid) 50 mcg DAILY@06 PO Last administered on 05:23; Admin Dose 50 MCG; Start 09/05/17 at 06:00 Nifedipine (Procardia Xl) 30 mg DAILY PO Last administered on 09/08/17 09:15 ; Admin Dose 30 MG; Start 09/04/17 at 09:00 Atorvastatin Calcium (Lipitor) 10 mg HS PO Last administered on 09/07/17 21: 27; Admin Dose 10 MG; Start 09/04/17 at 21:00 Spironolactone (Aldactone) 25 mg DAILY@06 PO Last administered on 09/08/17 05 :23; Admin Dose 25 MG; Start 09/05/17 at 08:00 Metoprolol Succinate (Toprol Xl) 25 mg BID PO Last administered on 09/08/17 09:15; Admin Dose 25 MG; Start 09/05/17 at 09:00 Famotidine (Pepcid) 20 mg BID PO Last administered on 09/08/17 09:14; Admin Dose 20 MG; Start 09/06/17 at 09:00 Aspirin (Halfprin) 81 mg DAILY PO Last administered on 09/08/17 09:14; Admin Dose 81 MG; Start 09/06/17 at 09:00 Acetaminophen (Tylenol Tab) 650 mg Q6H PRN PO PAIN AND OR ELEVATED TEMP Last administered on 09/08/17 10:55; Admin Dose 650 MG; Start 09/07/17 at 09:30 LYNN GIVENS MD Sep 08, 2017 13:35
--- NOTE | 2017-09-08 14:22 | RADRPT ---
PROCEDURE: XR Chest. CLINICAL INDICATION: Dyspnea TECHNIQUE: Single frontal chest x-ray. COMPARISON: Chest x-ray 09/06/2017 FINDINGS: Cardiomegaly with mild vascular congestion and volume overload is seen, stable over time. Small vasu ateral pleural effusions are seen, right greater than left. The mediastinal silhouette is unremarkab le. There is no pneumothorax. Surgical clips are seen overlying the right lateral chest wall and rig ht axilla, stable over time. IMPRESSION: 1. Cardiomegaly with mild vascular congestion and volume overload, stable. 2. Stable bilateral basilar pleural effusions, right greater than left. 3. Overall appearances are unchanged when compared to the prior study. 4. Benign chronic senescent changes, unchanged over time as well. RPTAT: PP .Jarvis Alcantar MD, Date Time Electronically viewed and signed by .Jarvis Alcantar MD, on 09/08/2017 14:22 .B/
[2017-09-08] MEDS: FUROSEMIDE 40 MG TAB PO SCH (15:57)
[2017-09-08] MEDS: ATORVASTATIN 10 MG TAB PO SCH (21:07)
[2017-09-09] VITALS (12 sets, daily range): BP systolic 98–134; BP diastolic 50–67; PULSE 43–70; RESP 17–18
[2017-09-09] MEDS: LEVOTHYROXINE 50 MCG TAB PO SCH (06:15)
[2017-09-09] MEDS: SPIRONOLACTONE 25 MG TAB PO SCH (06:15)
--- NOTE | 2017-09-09 07:55 | PN ---
Date/Time of Note Date/Time of Note DATE: 09/09/17 TIME: 07:49 Assessment/Plan VTE Prophylaxis VTE Prophylaxis Intervention: other Lines/Catheters IV Catheter Type (from Nrs): Saline Lock Urinary Cath still in place: No Assessment/Plan Problems: (1) CHF (congestive heart failure) Status: Chronic Comment: is chronic and improving, will obtain room air oxygen sat, last cxr noted Qualifiers: Congestive heart failure type: diastolic Congestive heart failure chronicity: chronic Qualified Code: I50.32 - Chronic diastolic congestive heart failure (2) Small bowel obstruction Status: Acute Comment: hs now resolved and tolerating her diet Assessment/Plan 1. Rev need for intermediate care before dc 2. Mag was low yesterday, will recheck toda 3. Atrial fib, ventric response is now acceptable, will inc dose of coumadin 4. Jenkins cath to be dc, urine cult obtained Subjective 24 Hr Interval Summary Respiratory: No cough, No shortness of breath Cardiovascular: No edema Gastrointestinal: no complaints Genitourinary: other (jenkins in place) Musculoskeletal: back pain Neurologic: No confusion, No headache Exam/Review of Systems Vital Signs Vitals Vital Signs Date Time Temp Pulse Resp B/P Pulse Ox O2 Delivery O2 Flow Rate FiO2 09/09/17 07:39 97.7 58 17 133/63 98 09/09/17 06:02 3.0 09/08/17 21:05 Nasal Cannula 09/06/17 22:30 28 Intake and Output 09/08/17 09/08/17 09/09/17 14:59 22:59 06:59 Intake Total 250 ml Output Total 900 ml Balance -650 ml Exam Neck: No jvd Respiratory: diminished breath sounds, No crackles/rales Cardiovascular: No irregular rhythm Gastrointestinal: soft Musculoskeletal: spine non-tender (protective dressing noted post chest and lumbar spine-there is no skin breakdown) Extremities: No edema Results Result Diagram: 09/07/17 0815 09/07/17 0814 Results 24 hrs Laboratory Tests Test 09/08/17 09:31 Prothrombin Time 16.7 H Prothrombin Time Ratio 1.3 INR International Normalized Ratio 1.34 Medications Medications Current Medications Ondansetron HCl (Zofran Inj) 4 mg Q6H PRN IV NAUSEA AND/OR VOMITING Last administered on 09/06/17t 11:32; Admin Dose 4 MG; Start 09/02/17 at 13:00 Levothyroxine Sodium (Synthroid) 50 mcg DAILY@06 PO Last administered on 06:15; Admin Dose 50 MCG; Start 09/05/17 at 06:00 Nifedipine (Procardia Xl) 30 mg DAILY PO Last administered on 09/08/17 09:15 ; Admin Dose 30 MG; Start 09/04/17 at 09:00 Atorvastatin Calcium (Lipitor) 10 mg HS PO Last administered on 09/08/17 21: 07; Admin Dose 10 MG; Start 09/04/17 at 21:00 Spironolactone (Aldactone) 25 mg DAILY@06 PO Last administered on 09/09/17 06 :15; Admin Dose 25 MG; Start 09/05/17 at 08:00 Metoprolol Succinate (Toprol Xl) 25 mg BID PO Last administered on 09/08/17 21:08; Admin Dose 25 MG; Start 09/05/17 at 09:00 Famotidine (Pepcid) 20 mg BID PO Last administered on 09/08/17 21:07; Admin Dose 20 MG; Start 09/06/17 at 09:00 Aspirin (Halfprin) 81 mg DAILY PO Last administered on 09/08/17 09:14; Admin Dose 81 MG; Start 09/06/17 at 09:00 Acetaminophen (Tylenol Tab) 650 mg Q6H PRN PO PAIN AND OR ELEVATED TEMP Last administered on 09/08/17 10:55; Admin Dose 650 MG; Start 09/07/17 at 09:30 Furosemide (Lasix) 40 mg DAILY PO Last administered on 09/08/17 15:57; Admin Dose 40 MG; Start 09/08/17 at 14:00 CATARINO RAMOS MD Sep 09, 2017 07:55
[2017-09-09] MEDS ORDERED: WARFARIN 5 MG TAB PO SCH (08:00)
[2017-09-09] MEDS: ASPIRIN (EC) 81 MG TAB PO SCH (08:20)
[2017-09-09] MEDS: NIFEdipine (XL) 30 MG TAB PO SCH (08:21)
[2017-09-09] MEDS: METOPROLOL (XL) 25 MG TAB PO SCH ×2 (08:22→20:44)
[2017-09-09] MEDS: FAMOTIDINE 20 MG TAB PO SCH ×2 (08:22→20:43)
[2017-09-09] MEDS: FUROSEMIDE 40 MG TAB PO SCH (08:23)
[2017-09-09 11:29] LABS: CALCIUM 8.9 mg/dl (8.4-10.2); CREATININE 0.88 mg/dl (0.44-1.00); MAGNESIUM 1.8 mg/dl (1.7-2.5); POTASSIUM 3.2 mmol/L (3.5-5.1)
[2017-09-09 11:36] LABS: INR 1.23; PROTIME 15.6 Sec (12.2-14.2); PT RATIO 1.2
[2017-09-09] MEDS ORDERED: POTASSIUM CHLORIDE (SR) 20 MEQ TAB PO STA (11:53)
[2017-09-09] MEDS ORDERED: MAGNESIUM SULFATE 2 GM/50 ML 50 ML IVPB ONE (12:00)
[2017-09-09 12:32] LABS: Allen Test ACCEPTAB; Arterial Base Excess 9.1 mmol/L (-3.0-3); Arterial COHb 0.3 % (0.0-3.0); Arterial Fraction of Oxyhgb 93.5 % (93.0-99.0); Arterial HCO3 33.1 mmol/L (22.0-26.0); Arterial MetHb 0.2 % (0.0-1.5); MODE ROOM AIR
[2017-09-09] MEDS: SOD CHLORIDE 0.9% 1,000 ML IV SCH (12:36)
[2017-09-09] MEDS ORDERED: ACETAZOLAMIDE 500 MG INJ IV ONE ×2 (15:00→21:00)
[2017-09-09] MEDS ORDERED: POTASSIUM CHLORIDE (SR) 20 MEQ TAB PO ONE (16:00)
[2017-09-09] MEDS: ATORVASTATIN 10 MG TAB PO SCH (20:43)
[2017-09-09 20:53] LABS: ADD UMIC YES; UR AMORPHOUS CRYSTAL MODERATE /HPF (NONE SEEN); UR ASCORBIC ACID NEGATIVE (NEGATIVE); UR BACTERIA FEW /HPF (NONE SEEN); UR BILIRUBIN (Dip) NEGATIVE (NEGATIVE); UR BLOOD (Dip) 1+ mg/dL (NEGATIVE); UR CLARITY CLOUDY (CLEAR); UR COLOR YELLOW (YELLOW); UR GLUCOSE (Dip) NEGATIVE (NEGATIVE); UR KETONES (Dip) NEGATIVE (NEGATIVE); UR LEUKOCYTE ESTERASE (Dip) NEGATIVE Leu/ul (NEGATIVE); UR NITRITE (Dip) NEGATIVE (NEGATIVE); UR RBC 8 /HPF (0-5); UR SPECIFIC GRAVITY (Dip) 1.008 (1.003-1.030); UR TOTAL PROTEIN (Dip) NEGATIVE (NEGATIVE); UR UROBILINOGEN (Dip) 1+ mg/dL (NEGATIVE)
[2017-09-10] VITALS (13 sets, daily range): BP systolic 112–140; BP diastolic 55–83; PULSE 40–90; RESP 16–20
[2017-09-10] MEDS: LEVOTHYROXINE 50 MCG TAB PO SCH (06:20)
[2017-09-10] MEDS: SOD CHLORIDE 0.9% 1,000 ML IV SCH (06:20)
--- NOTE | 2017-09-10 07:46 | PN ---
Date/Time of Note Date/Time of Note DATE: 09/10/17 TIME: 07:38 Assessment/Plan VTE Prophylaxis VTE Prophylaxis Intervention: other (Coumadin) Lines/Catheters IV Catheter Type (from Nrs): Saline Lock Urinary Cath still in place: No Assessment/Plan Problems: (1) CHF (congestive heart failure) Status: Chronic Comment: 1. Stable without chf or angina, antecedent ischemia (elev trop) Qualifiers: Congestive heart failure type: diastolic Congestive heart failure chronicity: chronic Qualified Code: I50.32 - Chronic diastolic congestive heart failure (2) Small bowel obstruction Status: Resolved (3) Electrolyte imbalance Status: Acute Comment: labs pending, contraction alkalosis addressed with NS and IV Diamox, BDL low mag addressed (4) Discharge planning issues Comment: Await case management discussion with pt family as she needs ecf (PT) before dc home Assessment/Plan now asx Subjective 24 Hr Interval Summary Respiratory: No cough, No shortness of breath Cardiovascular: No chest pain Gastrointestinal: no complaints Exam/Review of Systems Vital Signs Vitals Vital Signs Date Time Temp Pulse Resp B/P Pulse Ox O2 Delivery O2 Flow Rate FiO2 09/10/17 07:36 97.8 70 17 140/67 97 09/10/17 04:13 3.0 09/09/17 10:43 21 09/09/17 08:12 Nasal Cannula Intake and Output 09/09/17 09/09/17 09/10/17 15:00 23:00 07:00 Intake Total 750 ml 200 ml Output Total 1100 ml 1400 ml Balance -350 ml -1200 ml Exam Neck: No jvd Respiratory: diminished breath sounds, No crackles/rales Cardiovascular: No irregular rhythm Gastrointestinal: soft Extremities: No edema Neurological: lethargic (but responds to name and simple commands) Results Result Diagram: 09/07/17 0815 09/09/17 1031 Results 24 hrs Laboratory Tests Test 09/09/17 10:31 09/09/17 11:53 09/09/17 14:00 Prothrombin Time 15.6 H Prothrombin Time Ratio 1.2 INR International Normalized Ratio 1.23 Sodium Level 132 L Potassium Level 3.2 L Chloride Level 84 L Carbon Dioxide Level 44 *H Anion Gap 7 L Blood Urea Nitrogen 18 Creatinine 0.88 Glucose Level 92 Calcium Level 8.9 Magnesium Level 1.8 Blood Gas Specimen Source Blood arterial Arterial Blood Date Drawn 09/09/2017 12:20:41 PM Arterial Blood pH (Temp corrected) 7.508 H Arterial Blood pCO2 (Temp correct) 42.6 Arterial Blood pO2 (Temp corrected) 65.7 L Arterial Blood HCO3 33.1 H Arterial Blood Base Excess 9.1 H Arterial Blood Oxygen Saturation 94.0 L Heriberto Test ACCEPTAB Arterial Blood Gas Puncture Site Right Radial Arterial Blood Carboxyhemoglobin 0.3 Arterial Blood Methemoglobin 0.2 Blood Gas A-a O2 Differential 33.0 H Oxyhemoglobin Percent 93.5 Total Hemoglobin 14.0 Blood Gas Temperature 37.0 Blood Gas Modality ROOM AIR FiO2 21.0 Blood Gas Notified Whom JLD Blood Gas Notified Time 09/09/2017 12:32:13 PM Urine Color YELLOW Urine Clarity CLOUDY A Urine pH 8.0 Urine Specific [place] 1.008 Urine Ketones NEGATIVE Urine Nitrite NEGATIVE Urine Bilirubin NEGATIVE Urine Urobilinogen 1+ H Urine Leukocyte Esterase NEGATIVE Urine Microscopic RBC 8 H Urine Microscopic WBC 3 Urine Amorphous Crystals MODERATE Urine Bacteria FEW A Urine Hemoglobin 1+ H Urine Glucose NEGATIVE Urine Total Protein NEGATIVE Medications Medications Current Medications Ondansetron HCl (Zofran Inj) 4 mg Q6H PRN IV NAUSEA AND/OR VOMITING Last administered on 09/06/17 11:32; Admin Dose 4 MG; Start 09/02/17 at 13:00 Levothyroxine Sodium (Synthroid) 50 mcg DAILY@06 PO Last administered on 06:20; Admin Dose 50 MCG; Start 09/05/17 at 06:00 Nifedipine (Procardia Xl) 30 mg DAILY PO Last administered on 09/09/17 08:21 ; Admin Dose 30 MG; Start 09/04/17 at 09:00 Atorvastatin Calcium (Lipitor) 10 mg HS PO Last administered on 09/09/17 20: 43; Admin Dose 10 MG; Start 09/04/17 at 21:00 Metoprolol Succinate (Toprol Xl) 25 mg BID PO Last administered on 09/08/17 21:08; Admin Dose 25 MG; Start 09/05/17 at 09:00 Famotidine (Pepcid) 20 mg BID PO Last administered on 09/09/17 20:43; Admin Dose 20 MG; Start 09/06/17 at 09:00 Aspirin (Halfprin) 81 mg DAILY PO Last administered on 09/09/17 08:20; Admin Dose 81 MG; Start 09/06/17 at 09:00 Acetaminophen 650 mg 650 mg Q6H PRN PO PAIN AND OR ELEVATED TEMP Last administered on 09/08/17 10:55; Admin Dose 650 MG; Start 09/07/17 at 09:30 Sodium Chloride (NS) 1,000 ml @ 60 mls/hr [id number] IV Last administered on 06:20; Admin Dose 60 MLS/HR; Start 09/09/17 at 12:00 CATARINO RAMOS MD Sep 10, 2017 07:45
--- NOTE | 2017-09-10 09:37 | CONS ---
Date/Time of Note Date/Time of Note DATE: 09/10/17 TIME: 09:31 Assessment/Plan Assessment/Plan Chief Complaint/Hosp Course # Dyspnea- improved, echo wnl repeat trop wnl. , no acute changes on ekg. - cont asa/statin - poor po intake, hold diuretic given contraction alkalosis - gentle hydration # NSTEMI- no acute change on ekg, troponin elevation downtrending. likely type ii nstemi from demand from SBO. - cont statin, low dose asa - hold bb for HR < 60 # abd pain- SBO improved # afib- chronic, rate controlled - digoxin d/c given alberto - hold bb for HR < 60 - ok to hold anticoag in acute setting, has overall frailty long-term anticoag should be reassessed after acute issues resolve # Pleural effusions- negative previous cytology with thoracentesis, has chronic diastolic hf - bp control - diuressi # pericardial effusion- small anterior chronic - cont med mgmt, no interval change or hd significance # HTN - cont home meds Problems: Consultation Date/Type/Reason Admit Date/Time Sep 03, 2017 at 04:20 Initial Consult Date 09/02/17 Type of Consultation: cardiology Referring Provider: CATARINO RAMOS MD 24 HR Interval Summary Free Text/Dictation no acute events. pt slightly confused this am, pre nursing has been oriented. pt denies any chest pain, sob. states has had some urgency since jenkins removal. denies dizziness, fainting tele reviewed: afib, rates 60-90s no pauses Detailed Summary ENT: no complaints Respiratory: no complaints Cardiovascular: no complaints Gastrointestinal: no complaints Exam/Review of Systems Vital Signs Vitals Vital Signs Date Time Temp Pulse Resp B/P Pulse Ox O2 Delivery O2 Flow Rate FiO2 09/10/17 07:36 97.8 70 17 140/67 97 09/10/17 04:13 3.0 09/09/17 10:43 21 09/09/17 08:12 Nasal Cannula Intake and Output 09/09/17 09/09/17 09/10/17 15:00 23:00 07:00 Intake Total 750 ml 200 ml Output Total 1100 ml 1400 ml Balance -350 ml -1200 ml Exam Constitutional: alert,frail Psych: no complaints Head: normocephalic Eyes: EOMI ENMT: op clear poor dentition Respiratory: other (decrease bs bilateral base) Cardiovascular: irregular rhythm, nl pulses, systolic murmur Gastrointestinal minimal ttp, no guarding/rebound Musculoskeletal: no sig edema, Extremities: normal pulses, wwp Neurological: [employer] II-XII intact, nl mental status, nl speech Results Result Diagram: 09/07/17 0815 09/09/17 1031 Results 24 hrs Laboratory Tests Test 09/09/17 10:31 09/09/17 11:53 09/09/17 14:00 Prothrombin Time 15.6 H Prothrombin Time Ratio 1.2 INR International Normalized Ratio 1.23 Sodium Level 132 L Potassium Level 3.2 L Chloride Level 84 L Carbon Dioxide Level 44 *H Anion Gap 7 L Blood Urea Nitrogen 18 Creatinine 0.88 Glucose Level 92 Calcium Level 8.9 Magnesium Level 1.8 Blood Gas Specimen Source Blood arterial Arterial Blood Date Drawn 09/09/2017 12:20:41 PM Arterial Blood pH (Temp corrected) 7.508 H Arterial Blood pCO2 (Temp correct) 42.6 Arterial Blood pO2 (Temp corrected) 65.7 L Arterial Blood HCO3 33.1 H Arterial Blood Base Excess 9.1 H Arterial Blood Oxygen Saturation 94.0 L Heriberto Test ACCEPTAB Arterial Blood Gas Puncture Site Right Radial Arterial Blood Carboxyhemoglobin 0.3 Arterial Blood Methemoglobin 0.2 Blood Gas A-a O2 Differential 33.0 H Oxyhemoglobin Percent 93.5 Total Hemoglobin 14.0 Blood Gas Temperature 37.0 Blood Gas Modality ROOM AIR FiO2 21.0 Blood Gas Notified Whom JLD Blood Gas Notified Time 09/09/2017 12:32:13 PM Urine Color YELLOW Urine Clarity CLOUDY A Urine pH 8.0 Urine Specific [place] 1.008 Urine Ketones NEGATIVE Urine Nitrite NEGATIVE Urine Bilirubin NEGATIVE Urine Urobilinogen 1+ H Urine Leukocyte Esterase NEGATIVE Urine Microscopic RBC 8 H Urine Microscopic WBC 3 Urine Amorphous Crystals MODERATE Urine Bacteria FEW A Urine Hemoglobin 1+ H Urine Glucose NEGATIVE Urine Total Protein NEGATIVE Medications Medications Current Medications Ondansetron HCl (Zofran Inj) 4 mg Q6H PRN IV NAUSEA AND/OR VOMITING Last administered on 09/06/17 11:32; Admin Dose 4 MG; Start 09/02/17 at 13:00 Levothyroxine Sodium (Synthroid) 50 mcg DAILY@06 PO Last administered on 06:20; Admin Dose 50 MCG; Start 11/16/17 at 06:00 Nifedipine (Procardia Xl) 30 mg DAILY PO Last administered on 09/09/17 08:21 ; Admin Dose 30 MG; Start 09/04/17 at 09:00 Atorvastatin Calcium (Lipitor) 10 mg HS PO Last administered on 09/09/17 20: 43; Admin Dose 10 MG; Start 09/04/17 at 21:00 Metoprolol Succinate (Toprol Xl) 25 mg BID PO Last administered on 09/08/17 21:08; Admin Dose 25 MG; Start 09/05/17 at 09:00 Famotidine (Pepcid) 20 mg BID PO Last administered on 09/09/17 20:43; Admin Dose 20 MG; Start 09/06/17 at 09:00 Aspirin (Halfprin) 81 mg DAILY PO Last administered on 09/09/17 08:20; Admin Dose 81 MG; Start 09/06/17 at 09:00 Acetaminophen 650 mg 650 mg Q6H PRN PO PAIN AND OR ELEVATED TEMP Last administered on 09/08/17 10:55; Admin Dose 650 MG; Start 09/07/17 at 09:30 Sodium Chloride (NS) 1,000 ml @ 60 mls/hr [id number] IV Last administered on 06:20; Admin Dose 60 MLS/HR; Start 09/09/17 at 12:00 Procedures Procedures cxr report reviewed 1. Cardiomegaly with mild vascular congestion and volume overload, stable. 2. Stable bilateral basilar pleural effusions, right greater than left. 3. Overall appearances are unchanged when compared to the prior study. 4. Benign chronic senescent changes, unchanged over time as well. EVE DELGADO Sep 10, 2017 09:37
[2017-09-10 09:50] LABS: ABNORMAL IP MESSAGE 1; BASOPHIL # 0.1 10^3/ul (0.0-0.1); BASOPHILS % 0.9 % (0.0-2.0); EOSINOPHILS # 0.1 10^3/ul (0.0-0.5); EOSINOPHILS % 1.6 % (0.0-7.0); HEMATOCRIT 44.6 % (37.0-47.0); HEMOGLOBIN 14.9 g/dl (12.0-16.0); LYMPHOCYTES # 0.4 10^3/ul (0.8-2.9); LYMPHOCYTES % 5.1 % (15.0-51.0); MEAN CORPUSCULAR HEMOGLOBIN 31.8 pg (29.0-33.0); MEAN CORPUSCULAR HGB CONC 33.4 g/dl (32.0-37.0); MEAN CORPUSCULAR VOLUME 95.1 fl (82.0-101.0); MEAN PLATELET VOLUME 10.1 fl (7.4-10.4); MONOCYTES % 12.6 % (0.0-11.0); NEUTROPHIL # 6.4 10^3/ul (1.6-7.5); NEUTROPHILS % 79.3 % (39.0-77.0); PLATELET COUNT 262 10^3/UL (140-415); RED BLOOD COUNT 4.69 10^6/ul (4.20-5.40); RED CELL DISTRIBUTION WIDTH 12.6 % (11.5-14.5)
[2017-09-10] MEDS: FAMOTIDINE 20 MG TAB PO SCH ×2 (10:08→20:43)
[2017-09-10] MEDS: ASPIRIN (EC) 81 MG TAB PO SCH (10:08)
[2017-09-10] MEDS: NIFEdipine (XL) 30 MG TAB PO SCH (10:09)
[2017-09-10] MEDS: METOPROLOL (XL) 25 MG TAB PO SCH ×2 (10:13→20:42)
[2017-09-10 10:18] LABS: INR 1.68; PROTIME 19.9 Sec (12.2-14.2); PT RATIO 1.6
[2017-09-10 10:19] LABS: CALCIUM 8.9 mg/dl (8.4-10.2); CREATININE 0.86 mg/dl (0.44-1.00); MAGNESIUM 1.9 mg/dl (1.7-2.5); PHOSPHORUS 3.1 mg/dl (2.5-4.9)
[2017-09-10] MEDS ORDERED: WARFARIN 2 MG TAB PO ONE (13:00)
[2017-09-10] MEDS: ATORVASTATIN 10 MG TAB PO SCH (20:42)
[2017-09-10] MEDS: ACETAMINOPHEN 325 MG TAB PO PRN (20:42)
[2017-09-11] VITALS (7 sets, daily range): BP systolic 132–166; BP diastolic 64–88; PULSE 56–70; RESP 16–18
[2017-09-11] MEDS: ACETAMINOPHEN 325 MG TAB PO PRN ×2 (03:29→13:26)
[2017-09-11] MEDS: SOD CHLORIDE 0.9% 1,000 ML IV SCH (03:59)
[2017-09-11] MEDS: LEVOTHYROXINE 50 MCG TAB PO SCH (06:52)
--- NOTE | 2017-09-11 08:23 | PN ---
Date/Time of Note Date/Time of Note DATE: 09/11/17 TIME: 08:21 Assessment/Plan VTE Prophylaxis VTE Prophylaxis Intervention: other (coumadin) Lines/Catheters IV Catheter Type (from Nrsg): Saline Lock Urinary Cath still in place: No Assessment/Plan Assessment/Plan 1. CHF improved with prior evid of contraction alkalosis, will resume diuretics 1-2 d. 2. Chronic A fib with acceptable VR 3. Generalized weakness sec to advanced age 4. HBP, controlled 5. SBO resolved Subjective 24 Hr Interval Summary Respiratory: No shortness of breath Cardiovascular: No chest pain Gastrointestinal: constipation, No nausea, No vomiting Genitourinary: no complaints Musculoskeletal: back pain (is mild) Exam/Review of Systems Vital Signs Vitals Vital Signs Date Time Temp Pulse Resp B/P Pulse Ox O2 Delivery O2 Flow Rate FiO2 09/11/17 07:58 98.1 60 18 166/88 90 09/11/17 06:37 3.0 09/09/17 10:43 21 09/09/17 08:12 Nasal Cannula Intake and Output 09/10/17 09/10/17 09/11/17 15:00 23:00 07:00 Intake Total 1150 ml 475 ml Balance 1150 ml 475 ml Exam Neck: No jvd Respiratory: clear to auscultation, diminished breath sounds Cardiovascular: No irregular rhythm Gastrointestinal: soft Extremities: No edema Results Result Diagram: 09/10/1792409/10/1725 Results 24 hrs Laboratory Tests Test 09/10/17 09:25 White Blood Count 8.0 Red Blood Count 4.69 Hemoglobin 14.9 Hematocrit 44.6 Mean Corpuscular Volume 95.1 Mean Corpuscular Hemoglobin 31.8 Mean Corpuscular Hemoglobin Concent 33.4 Red Cell Distribution Width 12.6 Platelet Count 262 Mean Platelet Volume 10.1 Neutrophils % 79.3 H Lymphocytes % 5.1 L Monocytes % 12.6 H Eosinophils % 1.6 Basophils % 0.9 Nucleated Red Blood Cells % 0.0 Neutrophils # 6.4 Lymphocytes # 0.4 L Monocytes # 1.0 H Eosinophils # 0.1 Basophils # 0.1 Nucleated Red Blood Cells # 0.0 Prothrombin Time 19.9 #H Prothrombin Time Ratio 1.6 INR International Normalized Ratio 1.68 Sodium Level 135 Potassium Level 4.0 Chloride Level 96 #L Carbon Dioxide Level 32 #H Anion Gap 11 Blood Urea Nitrogen 14 Creatinine 0.86 Glucose Level 102 Calcium Level 8.9 Phosphorus Level 3.1 Magnesium Level 1.9 Medications Medications Current Medications Ondansetron HCl (Zofran Inj) 4 mg Q6H PRN IV NAUSEA AND/OR VOMITING Last administered on 09/06/17 11:32; Admin Dose 4 MG; Start 09/02/17 at 13:00 Levothyroxine Sodium (Synthroid) 50 mcg DAILY@06 PO Last administered on 06:52; Admin Dose 50 MCG; Start 09/05/17 at 06:00 Nifedipine (Procardia Xl) 30 mg DAILY PO Last administered on 09/10/17 10:09 ; Admin Dose 30 MG; Start 09/04/17 at 09:00 Atorvastatin Calcium (Lipitor) 10 mg HS PO Last administered on 09/10/17 20: 42; Admin Dose 10 MG; Start 09/04/17 at 21:00 Metoprolol Succinate (Toprol Xl) 25 mg BID PO Last administered on 09/10/17 20:42; Admin Dose 25 MG; Start 09/05/17 at 09:00 Famotidine (Pepcid) 20 mg BID PO Last administered on 09/10/17 20:43; Admin Dose 20 MG; Start 09/06/17 at 09:00 Aspirin (Halfprin) 81 mg DAILY PO Last administered on 09/10/17 10:08; Admin Dose 81 MG; Start 09/06/17 at 09:00 Acetaminophen 650 mg 650 mg Q6H PRN PO PAIN AND OR ELEVATED TEMP Last administered on 09/11/17 03:29; Admin Dose 650 MG; Start 09/07/17 at 09:30 Sodium Chloride (NS) 1,000 ml @ 25 mls/hr Q24H IV Last administered on 03:59; Admin Dose 25 MLS/HR; Start 09/09/17 at 12:00 CATARINO RAMOS MD Sep 11, 2017 08:23
[2017-09-11] MEDS ORDERED: NIFE30TA2 PO (08:26)
[2017-09-11] MEDS ORDERED: ASPI-664 PO (08:26)
[2017-09-11] MEDS ORDERED: ACET325T40 PO (08:26)
[2017-09-11] MEDS ORDERED: METO-335 PO (08:26)
[2017-09-11] MEDS ORDERED: LACTULOSE 30ML CUP PO ONE (08:30)
[2017-09-11] MEDS ORDERED: BISACODYL 10 MG SUPP PR ONE (08:30)
[2017-09-11] MEDS: ASPIRIN (EC) 81 MG TAB PO SCH (09:48)
[2017-09-11] MEDS: FAMOTIDINE 20 MG TAB PO SCH (09:48)
[2017-09-11] MEDS: METOPROLOL (XL) 25 MG TAB PO SCH (09:48)
[2017-09-11] MEDS: NIFEdipine (XL) 30 MG TAB PO SCH (09:48)
[2017-09-11 10:47] LABS: INR 1.8; PT RATIO 1.6
[2017-09-11] MEDS ORDERED: WARFARIN 3 MG TAB PO ONE (12:00)
--- NOTE | 2017-09-16 14:10 | DS ---
DATE OF ADMISSION: 09/03/2017 DATE OF DISCHARGE: 09/11/2017 HISTORY OF PRESENT ILLNESS: This 87-year-old female admitted with a chief complaint of abdominal pa in, nausea and reduced appetite as well as vomiting for 2 to 3 days' duration with known atrial fibr illation and chronic congestive heart failure. PERTINENT PHYSICAL EXAMINATION: VITAL SIGNS: BP 177/90, heart rate was 93 and irregular. She was afebrile. ABDOMEN: Not distended. There were intermittent high pitched bowel sounds, tenderness in the epiga strium. Liver and spleen were not enlarged. No masses. EXTREMITIES: No edema. NEUROLOGIC: No lateralizing motor weakness. RECTAL: Exam revealed no stool in the rectal vault. LABORATORY AND DIAGNOSTIC STUDIES: Hematocrit 46.9, white count 9900, platelet count was normal on admission. On the hematocrit 44.6, white count 8000 and platelet count was 262,000. Chemistri es were unrevealing except for a troponin of 0.454 on the , 0.396 on the . IMAGING STUDIES: Included CT of the abdomen and pelvis that revealed multiple loops of dilated flui d-filled small bowel, focal thickening of the short segment of the distal small bowel thought second lita to partial to early small bowel obstruction as well as a possible infectious or inflammatory ent eritis. Serial x-rays of the abdomen revealed resolution of her small bowel obstruction having cont inued IVs and allowing the patient only clear liquids. The patient was seen by Dr. Jerardo Mansfield and Dr. Huff who confirmed the same. She continued to im prove, allowing clear liquids followed by a regular diet. Three days prior to discharge, she did be come moderately short of breath. This was related to congestive heart failure that really improved rapidly with IV diuretics. It was thought that she may have sustained a small subendocardial injury based on elevated troponin and Dr. Woody felt no intervention needed given her advanced age and no symptoms of chest pain. Atrial fibrillation for the most part remained well controlled. She did have a rapid ventricular response when she had evidence of CHF and this too resolved with IV diuret ics. DISCHARGE DIAGNOSES: 1. Small bowel obstruction, resolved. 2. Chronic congestive heart failure, compensated with an acute episode, probably secondary to volum e overload in the setting of underlying mild ischemia. 3. Severe inanition secondary to advanced age and chronic congestive heart failure. PLAN: To be discharged to [facility] for physical therapy. MEDICATIONS: Include: 1. Digoxin 0.125 mg daily. 2. Famotidine 20 mg daily. 3. Levothyroxine 50 mcg per day. 4. Lovastatin 40 mg per day. 5. Metoprolol 25 mg daily. 6. Resume Lasix and Aldactone after needed followup exam at [facility] as at the time of discharge she was mildly volume contracted. DIET: No added salt. Dictated By: CATARINO LABOY/REI Conf#: [id number] DID#: [id number]
== END 2017-09-11 13:51 | DRG 388 ==
LOC: E/R 10:59 → TEL 13:04 → UNDOADMIN 13:04 → OBSVTOIN 09-03 04:20 → TEL 09-03 04:20 → INTOOBSV 09-03 04:20
PROVIDERS: ADMIT Internal Medicine; ATTEND Internal Medicine
DX: K56.50 Intestinal adhesions [bands], unspecified as to partial versus complete obstruction (principal); I21.A1 Myocardial infarction type 2; I11.0 Hypertensive heart disease with heart failure; L89.151 Pressure ulcer of sacral region, stage 1; I50.32 Chronic diastolic (congestive) heart failure; E86.0 Dehydration; I48.91 Unspecified atrial fibrillation; Z79.01 Long term (current) use of anticoagulants; Z85.3 Personal history of malignant neoplasm of breast; K57.90 Diverticulosis of intestine, part unspecified, without perforation or abscess without bleeding; E03.9 Hypothyroidism, unspecified; I51.7 Cardiomegaly; R35.0 Frequency of micturition; R09.02 Hypoxemia; H91.90 Unspecified hearing loss, unspecified ear; E83.42 Hypomagnesemia
CPT/HCPCS: 36415; 36600; 71010; 74000; 74010; 74176; 80048; 80053; 80162; 81001; 82150; 82803; 83605; 83690; 83735; 84100; 84443; 84484; 85025; 85610; 85730; 87040; 87086; 93005; 93306; 93970; 94640; 94664; 96374; 96375; 96376; 97110; 97116; 97161; 97530; J1120; J1940; C9113; J1956; J2270; J2405; J3370; J3475; J3480; J7030; J7040; J7042; Q9967